=== PATIENT | female | born 1930 | race Caucasian/White ===

== ENCOUNTER 2016-12-23 10:30 | Emergency (ER) | payer OTHER ==
[~2016-12-23] VITALS: Ht 152.4 cm; Wt 65.8 kg
[~2016-12-23 10:30] MED LIST: ALBUTEROL0.63 MG/1 INH/SOL; AMLODIPINE BESY10 M1 PO; AMOXICILLIN500 M3 PO; ASPIRIN81 M4 PO; ATIVAN1 M1 PO; CYCLOBENZAPRINE5 M2 PO; DILAUDID2 M1 PO; FENOFIBRATE145 M1 PO; FLUOXETINE HCL20 M2 PO; HYDRALAZINE HCL50 M1 PO; HYDROCHLOROTHIA50 M1 PO; HYDROCODON-ACE1 EAC2 PO; HYDROMORPHONE HC2 M1 PO; LIDODERM1 EACH EXT; LOVASTATIN40 M1 PO; LYRICA25 M1 PO; METHYLPREDNISOLO4 M1 PO; MIRALAX119 GM PO; NIFEDIPINE ER60 M2 PO; OMEPRAZOLE20 M2 PO; ONE-A-DAY ESSE1 EACH PO; OXYCODONE HCL5 M1 PO; PROAIR HFA8.5 GM INH; SENNA PLUS TAB1 EACH PO; SPIRIVA18 MCG INH; SYMBICORT 80-10.2 GM INH; TRICOR48 M1 PO; VITAMIN D1000 UNIT PO
--- NOTE | 2016-12-23 11:05 | ED GENERAL ADULT ---
History of Present Illness General Chief Complaint: General Adult Stated Complaint: SIB WALK IN, LOW HEART RATE, BACK PAIN Source: patient, family, old records Exam Limitations: no limitations Vital Signs & Intake/Output Vital Signs & Intake/Output Vital Signs Date Time Temp Pulse Resp B/P Pulse O2 O2 Flow FiO2 Ox Delivery Rate 12/23 1359 97.4 56 18 148/76 96 Room Air 12/23 1343 148/76 04 1203 96.6 70 18 94 Room Air 12/23 1056 97.7 71 20 180/70 96 Room Air Allergies Coded Allergies: NO KNOWN ALLERGIES (12/24/12) Reconcile Medications Amlodipine Besylate (Norvasc) 10 MG TABLET 1 TAB PO DAILY htn (Reported) Aspirin (Aspirin*) 81 MG TAB.CHEW 1 TAB PO DAILY heart (Reported) Budesonide/Formoterol Fumarate (Symbicort 80-4.5 Mcg Inhaler) 80 MCG-4.5 MCG/ ACTUATION HFA.AER.AD 2 PUF INH BID BREATHING PROBLEMS (Reported) Cholecalciferol (Vitamin D3) (Vitamin D) 1,000 UNIT TABLET 1 TAB PO DAILY SUPPLEMENT (Reported) Fenofibrate Nanocrystallized (Fenofibrate) 145 MG TABLET 1 TAB PO DAILY cholesterol (Reported) Fluoxetine HCl 20 MG CAPSULE 1 CAP PO DAILY MENTAL HEALTH (Reported) Hydralazine HCl 50 MG TABLET 1 TAB PO TID HEART (Reported) Hydrochlorothiazide (Unknown Strength) CAPSULE (Unknown Dose) PO DAILY htn ( Reported) Hydromorphone HCl (Dilaudid) 2 MG TABLET 1 TAB PO Q6 PAIN (Reported) Hydromorphone HCl (Dilaudid) 2 MG TABLET 1 TAB PO Q6H PRN pain may cause drowsiness Hydromorphone HCl (Dilaudid) 2 MG TABLET 1 TAB PO Q6H PRN pain Lidocaine (Lidoderm) 5 % ADH..PATCH 1 PAT EXT DAILY PRN Back pain Lidocaine (Lidoderm) 5 % ADH..PATCH 1 PAT TOP DAILY PRN pain may wear up to 12 hours Lidocaine (Lidoderm) 5 % ADH..PATCH 1 PAT TOP DAILY PRN pain may wear up to 12 hours Lovastatin 40 MG TABLET 1 TAB PO DAILY CHOLESTEROL (Reported) with food Triage Note: TRIAGE: PT TO ER C/C PAIN ACROSS BACK AT BRA STRAP LINE, ONSET SATURDAY, CONSTANT SINCE ONSET. STATES "IT HURTS LIKE HELL". TRIED EXCEDRIN EXTRA STRENGTH WITH NO RELIEF NOTED. DENIES ANY OTHER S/S. WAS SEEN AT URGENT CARE AND WAS REFERRED TO ER FOR FURTHER EVAL. EKG DONE IN [place] PRIOR TO TRIAGE. Triage Nurses Notes Reviewed? yes HPI: Patient is an 86-year-old female presents complaining of severe upper back pain onset on Saturday. Patient reports that she was at rest with onset of pain. Pain is 10 out of 10 and aching pain worsens with movement, deep breath, palpation. Yesterday patient took a dose of Dilaudid and applied a lidocaine patch with improvement. Patient was seen at a walk-in clinic prior to arrival had an EKG which showed bradycardia, was administered 325 mg of aspirin and sent to the emergency department for further evaluation. Patient reports chronic dyspnea secondary to asthma, no recent change. Patient denies recent falls, trauma, numbness, weakness, chest pain, rash, fevers. Patient did not take her blood pressure medication this morning. (BRAD DUGAN) Past History Travel History Traveled to [place] past 21 day No Medical History Any Pertinent Medical History? 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 No (BRAD DUGAN) Review of Systems Review of Systems Constitutional: Denies: chills, fever. EENTM: Reports: no symptoms. Respiratory: Reports: short of breath (CHRONIC, UNCHANGED). Denies: cough, wheezing. Cardiovascular: Denies: chest pain, peripheral edema, syncope. GI: Denies: abdominal pain, nausea, vomiting. Genitourinary: Reports: no symptoms. Denies: dysuria, frequency, hematuria. Musculoskeletal: Reports: see HPI. Skin: Reports: no symptoms. Neurological/Psychological: Denies: numbness, paresthesia, unable to move lower ext, unable to move upper ext, weakness. Hematologic/Endocrine: Denies: bruising, bleeding. Immunologic/Allergic: Denies: splenectomy. (BRAD DUGAN) Physical Exam Physical Exam General Appearance: well developed/nourished, alert, awake Head: atraumatic, normal appearance Eyes: Bilateral: normal appearance, PERRL, EOMI. Ears, Nose, Throat: hearing grossly normal Neck: normal inspection, supple, full range of motion, no midline tenderness Respiratory: normal breath sounds, chest non-tender, no respiratory distress, lungs clear Cardiovascular: regular rate/rhythm (NO APPRECIABLE MURMUR) Peripheral Pulses: 2+ radial (R), 2+ radial (L) Gastrointestinal: soft, non-tender, NO PALPABLE PULSATILE MASSES Back: normal inspection, normal range of motion, VERTEBRAL TENDERNESS IN THE AREA OF t4/t5. NO PALPABLE LESIONS, NO INDURATION, NO ERYTHEMA Extremities: normal inspection, normal capillary refill, normal range of motion, no edema Neurologic/Psych: no motor/sensory deficits, awake, alert, oriented x 3, normal mood/affect Skin: intact, normal color, warm/dry Lymphatic: no anterior cervical randy Core Measures ACS in differential dx? Yes ASA ordered for poss ACS? Aspirin administered at urgent care clinic prior to arrival. CVA/TIA Diagnosis: No Severe Sepsis Present: No Septic Shock Present: No (BRAD DUGAN) Progress Differential Diagnoses I considered the following diagnoses in my evaluation of the patient: compression fracture, aortic dissection, ACS, arrhythmia, muscle strain Plan of Care: Orders Procedure Date/time Status Telemetry/Pacu Rn 12/23 1155 Active Add-on Test (ER Only) 12/23 1148 Active THYROID STIMULATING HORMONE 12/23 1131 Complete MAGNESIUM 12/23 1131 Complete TROPONIN LEVEL 12/23 1119 Complete COMPREHENSIVE METABOLIC PANEL 12/23 1119 Complete CBC WITHOUT DIFFERENTIAL 12/23 1119 Complete EKG 12/23 1035 Active Laboratory Tests 12/23/16 1131: Anion Gap 13, Estimated GFR 24 L, BUN/Creatinine Ratio 30.5 H, Glucose 94, Calcium 10.3 H, Magnesium 2.2, Total Bilirubin 0.8, AST 28, ALT 30, Alkaline Phosphatase 62, Troponin I 0.02, Total Protein 7.9, Albumin 4.4, Globulin 3.5, Albumin/Globulin Ratio 1.3, TSH 2.000, CBC w Diff NO MAN DIFF REQ, RBC 4.55, MCV 90.9, MCH 30.0, RDW 15.0 H, MPV 9.3, Gran % 66.0, Lymphocytes % 21.9, Monocytes % 8.8, Eosinophils % 2.9, Basophils % 0.4, Absolute Granulocytes 5.7, Absolute Lymphocytes 1.9, Absolute Monocytes 0.8 H, Absolute Eosinophils 0.2, Absolute Basophils 0, PUBS MCHC 32.9 L 12/23/2016 11:56:09 AM: Discussed with Dr. Rivera. 12/23/2016 12:14:31 PM: Patient resting comfortably. Medication list reviewed with patient and her daughter, as urgent care med list had Metoprolol on it. Patient does not take Metoprolol. 12/23/2016 1:00:35 PM: Results of labs discussed with patient's daughter. Evaluated by Dr. Rivera: Administer IV fluids. Patient does not want to be admitted to hospital. If no acute findings on CT scan then can have patient follow up closely with her primary care provider for recheck and further evaluation. 12/23/2016 2:25:51 PM: Results of CT scan and labs discussed with the patient and her daughter. Patient does not want to be admitted to the hospital. Discussed importance of close follow-up. (BRAD UDGAN) Diagnostic Imaging: Viewed by Me: CT Scan. Discussed w/RAD: CT Scan. Pre-Hospital EKG: sinus bradycardia with PACs, no acute ST/T-wave abnormalities Initial ED EKG: normal sinus rhythm 58 bpm, normal axis, LVH, no acute ST/T-wave changes compared to previous EKG Prior EKG: unchanged Rhythm Strip: normal sinus rhythm, PAC (BRAD DUGAN) Departure Departure Disposition: HOME OR SELF CARE Condition: Stable Clinical Impression Primary Impression: Compression fracture of thoracic spine, non-traumatic Qualifiers: Encounter type: initial encounter Qualified Code: M48.54XA - Collapsed vertebra, not elsewhere classified, thoracic region, initial encounter for fracture Secondary Impressions: Acute nontraumatic kidney injury Referrals: TYREL HARRIS APRN (PCP/Family) Additional Instructions: Stop taking your hydrochlorothiazide medication until you follow up with your nurse practitioner and are instructed otherwise. Follow up this week for recheck and further evaluation of your compression fracture and your elevated kidney function tests. Call Saturday morning for appointment. Return to the ER if numbness, weakness, pain uncontrollable or worsening of symptoms. Departure Forms: Customer Survey General Discharge Information Prescriptions: Current Visit Scripts Hydromorphone HCl (Dilaudid) 1 TAB PO Q6H PRN pain #12 TAB may cause drowsiness Lidocaine (Lidoderm) 1 PAT TOP DAILY PRN pain #30 PAT may wear up to 12 hours Hydromorphone HCl (Dilaudid) 1 TAB PO Q6H PRN pain #12 TAB Lidocaine (Lidoderm) 1 PAT TOP DAILY PRN pain #30 PAT may wear up to 12 hours (BRAD DUGAN) PA/PROCESSING TECHNICIAN Co-Sign Statement Statement: ED Attending supervision documentation- [X] I saw and evaluated the patient. I have also reviewed all the pertinent lab results and diagnostic results. I agree with the findings and the plan of care as documented in the PA's/PROCESSING TECHNICIAN's documentation. [X] I have reviewed the ED Record and agree with the PA's/PROCESSING TECHNICIAN's documentation. [] Additions or exceptions (if any) to the PAs/PROCESSING TECHNICIAN's note and plan are summarized below: [] (NATA WISE,SPENCER) Critical Care Note Critical Care Note Critical Care Time: non-applicable (BRAD DUGAN)
[2016-12-23 11:58] LABS: ABSOLUTE BASOPHIL COUNT 0 /CUMM (0.0-0.2); ABSOLUTE EOSINOPHIL COUNT 0.2 /CUMM (0.0-0.7); ABSOLUTE GRANULOCYTE CT 5.7 /CUMM (1.4-6.5); ABSOLUTE LYMPH COUNT 1.9 /CUMM (1.2-3.4); ABSOLUTE MONOCYTE COUNT 0.8 /CUMM (0.10-0.60); BASOPHIL % 0.4 % (0.0-2.0); EOSINOPHIL % 2.9 % (0-5); HEMATOCRIT 41.3 % (37-47); MEAN CORPUSCULAR HGB CONC 32.9 G/DL (33.0-37.0); MEAN CORPUSCULAR VOLUME 90.9 FL (81.0-99.0); MEAN PLATELET VOLUME 9.3 FL (7.4-10.4); PLATELET COUNT 311 /CUMM (130-400); RED BLOOD CELL CT 4.55 /CUMM (4.20-5.40); WHITE BLOOD CELL COUNT 8.6 /CUMM (4.8-10.8)
[2016-12-23] MEDS ORDERED: FENOFIBRATE145 M1 PO (12:08)
[2016-12-23] MEDS ORDERED: NORVASC10 M1 PO (12:08)
[2016-12-23] MEDS ORDERED: ASPIRIN81 M4 PO (12:08)
[2016-12-23] MEDS ORDERED: HYDROCHLOROTH12.5 M3 PO (12:09)
[2016-12-23 13:59] VITALS: BP 148/76
--- NOTE | 2016-12-23 14:11 | CT SCAN REPORT ---
EXAMINATION: CT CHEST WITHOUT CONTRAST CLINICAL INFORMATION: Severe upper thoracic pain. No known injury. COMPARISON: CT chest without contrast 08/24/2016. TECHNIQUE: Axial CT chest is performed without intravenous contrast. Additional 2-D coronal and sagittal reformatted images and axial 3-D maximum intensity projection MIP images are generated on the CT workstation. DLP: 229 mGy-cm FINDINGS: CREATIVE MANAGER: Eventration right diaphragm. Dextrocurvature lower thoracic spine. Findings similar to prior exam. LUNGS: The central airways are clear and there is no endobronchial lesion or bronchiectasis. Mild bronchiolar wall thickening is again seen in the lower lobes. There is bilateral lower lobe disc atelectasis, greater on the right. Some linear scarring is also likely. There is no lobar segmental airspace consolidation. No pneumothorax or pneumomediastinum. Tiny fissural-based nodule right middle lobe abutting minor fissure measures under 4 mm (series 5 image 232, sagittal image 74). Finding is stable from 2016 and possibly intraparenchymal node. MEDIASTINUM: Coronary artery atherosclerotic calcifications. No pericardial effusion. The thoracic aorta is normal in caliber. There is no aneurysmal enlargement. In the absence of intravenous contrast, not able to assess for dissection. No lymphadenopathy. PLEURA: No pleural mass, significant thickening, or effusion. Small residual small pleural reaction adjacent to right rib fracture. AXILLA: No lymphadenopathy. UPPER ABDOMEN: Long axis left kidney is horizontal. OSSEOUS STRUCTURES: Moderate T5 vertebral compression, new from prior study 09/03/2016. No paraspinal hematoma. Old ununited nondisplaced fracture right lateral seventh rib. IMPRESSION: 1. Moderate T5 vertebral compression fracture, new from prior CT 09/03/2016. 2. No thoracic aorta aneurysmal enlargement. Unable to assess for dissection (noncontrast exam). 3. No pneumothorax, infiltrate, or effusion. 4. Small fissural-based nodule right middle lobe just under 4 mm, likely intraparenchymal node similar to prior study. Reference: The Fleischner Society recommendations for management of pulmonary nodules are based on average nodule size and patient risk category as follows: Average nodule size < or = to 4 mm: Low Risk Patient: No follow up needed. High Risk Patient: Follow up CT at 12 months; if unchanged, no further follow up.
[2016-12-23] MEDS ORDERED: DILAUDID2 M1 PO ×2 (14:24→14:41)
[2016-12-23] MEDS ORDERED: LIDODERM1 EACH TOP ×2 (14:24→14:41)
== END 2016-12-23 14:51 ==
LOC: ERH 10:30
PROVIDERS: Physician Assistant
DX: M48.54XA Collapsed vertebra, not elsewhere classified, thoracic region, initial encounter for fracture (principal); N17.9 Acute kidney failure, unspecified; R00.1 Bradycardia, unspecified; I10 Essential (primary) hypertension
CPT/HCPCS: 93005; 93010; 96360

== ENCOUNTER 2017-01-14 16:04 | Inpatient (IN) | payer OTHER ==
[~2017-01-14] VITALS: Ht 152.4 cm; Wt 61.2 kg
[~2017-01-14 16:04] MED LIST changes: +HYDROCHLOROTH12.5 M3 PO; +LIDODERM1 EACH TOP; +NORVASC10 M1 PO
--- NOTE | 2017-01-14 16:15 | NUR ---
PT STATES THAT SHE WAS WALKING WITH WALKER WHEN SHE LOSS HER FOOTING AND FELL BACKWARDS HITTING HER HEAD ON THE FLOOR. DENIES LOC, PT NOTED WITH LAC TO L SIDE BACK OF HEAD, COMPLAINS OF BACK PAIN, PT WAS DIAGNOSED WITH COMPRESSION FRACTURES IN HER BACK ACOUPLE OF WEEKS AGO. PT COLLARED ON ARRIVAL AND ASKING THIS NURSE TO REMOVE IT. PT AWARE THAT COLLAR NEEDS TO REMAIN IN PLACE AT THIS TIME. PT NOTED TO BE ALEXANDREA ON MONITOR AT THIS TIME HR TO 44- 52
--- NOTE | 2017-01-14 16:23 | NUR ---
PA STUDENT AT BEDSIDE
[2017-01-14] MEDS ORDERED: TUDORZA PRESS400 MCG INH (16:25)
[2017-01-14] MEDS ORDERED: ALBUTEROL2.5 MG/3 M INH/SOL (16:26)
[2017-01-14] MEDS ORDERED: HYDROCHLOROTHIA50 M1 PO (16:27)
[2017-01-14] MEDS ORDERED: HYDROXYZINE HCL25 M2 PO (16:28)
[2017-01-14] MEDS ORDERED: DILAUDID2 M1 PO (16:28)
[2017-01-14] MEDS ORDERED: LIDODERM1 EACH TOP (16:29)
[2017-01-14] MEDS ORDERED: LORAZEPAM1 M1 PO (16:29)
[2017-01-14] MEDS ORDERED: MULTI-DAY VITA1 EACH PO (16:30)
[2017-01-14] MEDS ORDERED: OMEPRAZOLE20 M3 PO (16:30)
[2017-01-14] MEDS ORDERED: SPIRIVA18 MCG INH (16:30)
[2017-01-14] MEDS ORDERED: LYRICA50 M1 PO (16:30)
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
--- NOTE | 2017-01-14 16:56 | NUR ---
DEEP DRAWN AND SENT TO LAB
[2017-01-14 17:03] LABS: ABSOLUTE BASOPHIL COUNT 0.1 /CUMM (0.0-0.2); ABSOLUTE EOSINOPHIL COUNT 0.3 /CUMM (0.0-0.7); ABSOLUTE GRANULOCYTE CT 7.9 /CUMM (1.4-6.5); ABSOLUTE LYMPH COUNT 2.1 /CUMM (1.2-3.4); ABSOLUTE MONOCYTE COUNT 1.3 /CUMM (0.10-0.60); BASOPHIL % 0.5 % (0.0-2.0); EOSINOPHIL % 2.6 % (0-5); GRANULOCYTE % 68.1 % (42.2-75.2); HEMATOCRIT 43.7 % (37-47); MEAN CORPUSCULAR HGB 29.5 PG (27.0-31.0); MEAN CORPUSCULAR HGB CONC 32.5 G/DL (33.0-37.0); MEAN CORPUSCULAR VOLUME 90.9 FL (81.0-99.0); MEAN PLATELET VOLUME 9.3 FL (7.4-10.4); PLATELET COUNT 345 /CUMM (130-400); RBC DISTRIBUTION WIDTH 14.3 % (11.5-14.5); RED BLOOD CELL CT 4.81 /CUMM (4.20-5.40); WHITE BLOOD CELL COUNT 11.5 /CUMM (4.8-10.8)
--- NOTE | 2017-01-14 17:34 | NUR ---
PT MEDICATED WITH DILAUDID PER ORDER FOR 06/25 UPPER BACK PAIN
--- NOTE | 2017-01-14 17:35 | NUR ---
PA PLACED 5 LINDSEY TO LAC ON BACK OF HEAD
--- NOTE | 2017-01-14 17:45 | NUR ---
PT ABLE TO AMBULATE TO BATHROOM WITH WALKER, COMPLAINS OF UPPER BACK PAIN, STATES THAT THIS IS NOT NEW. PT NEEDED ASSISTANCE TO GET UP AND DOWN ON TOILET DUE TO THE PAIN
--- NOTE | 2017-01-14 18:52 | NUR ---
PT REMAINS SINUS ALEXANDREA ON MONITOR HR 38-40" AND ASYMPTOMATIC. PT SITTING UP AND TALKING WITH HER DAUGHTER. PAIN 2/10 IN UPPER BACK AFTER IV PAIN MEDS.
--- NOTE | 2017-01-14 19:14 | CT SCAN REPORT ---
EXAMINATION: CT HEAD AND CERVICAL SPINE. CLINICAL INFORMATION: Pain status post fall. Evaluate for trauma. COMPARISON: CT scan of the head dated 05/23/2015. TECHNIQUE: [employer]ling [employer] Manager images were obtained. A CT acquisition of the head and cervical spine was performed without intravenous administration of contrast. Data was reformatted into multiplanar images at the acquisition workstation. DLP: 935.71 mGy-cm. FINDINGS: Head: There are numerous ill-defined foci of hypoattenuation within the periventricular white matter that most likely represent a chronic manifestation of small vessel ischemia. Waldrop-white matter differentiation is otherwise preserved and there is no evidence of acute territorial infarct. There is no acute intracranial hemorrhage or abnormal extra axial collection. No intracranial mass effect or midline shift. Lateral and third ventricles are proportionate to the subarachnoid spaces. No hydrocephalus. Surgical yanet delineate a laceration in the left parietal region. The underlying calvarium is intact. There is no acute skull base fracture. Mastoid air cells and middle ear cavities are well aerated. Visualized paranasal sinuses are well-aerated. Cervical spine: There is anatomic alignment and position of the vertebral bodies and posterior elements of the cervical spine in the sagittal dimension. Vertebral body heights are preserved. There is no acute cervical spinal fracture. No abnormal prevertebral soft tissue swelling. There is loss of intervertebral disc height with associated disc osteophyte spurring at C4-C5 and C5-C6. Central protrusions cause at least mild canal stenosis at multiple levels within the cervical spine. Visualized lung apices are clear. Soft tissues of the neck are unremarkable. IMPRESSION: Head: There is a laceration of the left parietal scalp. The underlying calvarium is intact. No acute intracranial hemorrhage. Chronic small vessel ischemic changes are visualized within the periventricular white matter. No evidence of acute territorial infarct. Cervical spine: No acute cervical spinal fracture. There are central protrusions that cause at least mild canal stenosis at the levels of C2-C3, C3-C4, C4-C5, and C5-C6. If there is a clinical suspicion for compressive myelopathy then a dedicated cervical spine MRI should be obtained for better anatomic characterization of the cord.
--- NOTE | 2017-01-14 19:33 | CT SCAN REPORT ---
EXAMINATION: CT CHEST, ABDOMEN AND PELVIS WITHOUT CONTRAST CLINICAL INFORMATION: Trauma and pain. Status post fall. COMPARISON: CT abdomen and pelvis without contrast 08/06/2016. TECHNIQUE: Multidetector volumetric CT imaging of the chest, abdomen and pelvis was performed without intravenous contrast without immediate adverse reactions. Additional 2-D coronal and sagittal reformatted images and axial 3-D maximum intensity projection MIP images of the chest were generated on the acquisition workstation. DLP: 825 mGy-cm. FINDINGS: Limited evaluation of the solid abdominal viscera in the absence of intravenous contrast. CHEST: LUNGS/AIRWAYS: Evaluation of the lung parenchyma demonstrates right basilar subsegmental atelectasis. There are no findings indicative of pulmonary contusion or laceration in the setting of trauma. No suspicious pulmonary nodules or masses are identified. HEART/VESSELS: Limited evaluation for acute thoracic aortic injury given lack of intravenous contrast. There is no anterior mediastinal hematoma. Normal heart size, without significant pericardial effusion. Scattered coronary artery calcifications. Scattered atherosclerosis of the thoracic aorta. The ascending thoracic aorta is mildly ectatic and is visualized measuring 3.6 x 3.8 cm in AP and transverse dimensions respectively at the level of the right pulmonary artery. MEDIASTINUM/LYMPHATICS: No significant mediastinal, hilar or axillary adenopathy. PLEURA: No pleural effusions or pneumothoraces. CHEST WALL: Unremarkable. ABDOMEN AND PELVIS: LIVER, GALLBLADDER, AND BILIARY TREE: The liver is normal in size and attenuation. No contour deforming hepatic lesion or biliary ductal dilatation is present. The gallbladder is physiologically distended but otherwise unremarkable without visible gallstones, gallbladder wall thickening or pericholecystic inflammatory changes. The gallbladder is visualized anterior to the liver. PANCREAS: Unremarkable. SPLEEN: Unremarkable. ADRENAL GLANDS: Unremarkable. KIDNEYS AND URETERS: Evaluation of the bilateral kidneys and renal collecting systems is notable for left-sided renal cortical atrophy. Redemonstrated is significant dilatation of the left renal collecting system, which may be secondary to underlying left UPJ obstruction. There are focal calcifications visualized draining dependently within the dilated left renal pelvis. Redemonstrated is a renal cortical thinning of the left kidney. Evaluation of the contralateral right kidney is notable for a 1.2 cm hypoattenuating lesion arising from the mid to lower pole of the right kidney. This finding is incompletely characterized on this examination but may reflect a simple renal cortical cyst. No renal or ureteral stones are identified and there is no hydroureteronephrosis of either kidney or renal collecting system. BLADDER: Unremarkable. GASTROINTESTINAL TRACT: Evaluation of the gastrointestinal system is somewhat limited given lack of intravenous or oral contrast. Normal anatomic orientation of the stomach relative to the duodenum. Normal caliber of abdominal and pelvic bowel loops, without findings indicative of small bowel obstruction or ileus. Scattered colonic diverticulosis, notably involving the descending and rectosigmoid colon, without secondary signs of acute diverticulitis. No intraperitoneal or retroperitoneal hematoma. ABDOMINAL WALL: No significant hernia is appreciated. LYMPH NODES: No significant abdominal or pelvic adenopathy. VASCULAR: Scattered atherosclerosis of the abdominal aorta and its branching vessels, without aneurysmal dilatation. PELVIC VISCERA: Unremarkable. OSSEOUS STRUCTURES: No acute osseous abnormality. Mild degenerative changes involving the bilateral hip joints. Scoliotic curvature of the thoracolumbar spine. Moderate multilevel degenerative disc disease and facet arthrosis of the imaged lumbar spine. No destructive osseous lesions are identified. IMPRESSION: 1. Limited exam secondary to lack of intravenous contrast. No significant anterior mediastinal hematoma. Limited evaluation for acute thoracic aortic injury given lack of intravenous contrast. 2. Limited evaluation for solid organ and hollow visceral injury given lack of intravenous contrast. No intraperitoneal or retroperitoneal hematoma. 3. Persistent significant dilatation of the left renal pelvis which may be secondary to underlying chronic left UPJ obstruction. 4. Scattered colonic diverticulosis, without secondary signs of acute diverticulitis. 5. No acute osseous abnormality. Scoliosis of the thoracolumbar spine.
--- NOTE | 2017-01-14 21:17 | NUR ---
PT'S URINE OBTAINED AT 2110 AND SENT TO LAB
--- NOTE | 2017-01-14 21:39 | NUR ---
ASSUMED CARE OF PT, WILL CONTINUE TO MONITOR.
--- NOTE | 2017-01-14 22:37 | NUR ---
PT MEDICATED WITH 5000UNIT HEPARIN BOLUS SC IN RIGHT ABD, NS LITER #1 INFUSING AT 75ML/HR AND PT MEDICATED WITH 0.4MG DILAUDID PER EMAR INFUSING IN A 50ML NS BAG @100ML/HR.
--- NOTE | 2017-01-14 23:15 | History & Physical ---
See Addendum RIDDHI WISE,[facility] 01/14/17 2315: General Information and HPI MD Statement: I have seen and personally examined TIFFANY BRANCH and documented this H&P. The patient is a 86 year old F who presented with a patient stated chief complaint of [mechanical fall]. Source of Information: patient, old records Exam Limitations: no limitations History of Present Illness: Ms. Branch is 86 year old female with past medical history significant for diabetes mellitus, asthma, COPD not on home oxygen, hypertension, hyperlipidemia , bradycardia, chronic kidney disease, chronic lower back pain, chronic left hydronephrosis, osteoarthritis presented to ED with chief complaint of mechanical fall at home. Patient reported falling after stepping on slippery floor and hitting her head against the corner of the dining table, no history of use of consciousness, seizure activity, urine or stool incontinence, weakness, numbness. No history of previous falls. Patient lives with her granddaughter, she uses walker and needs information assistant in some daily activity such as taking showers. Patient reported right flank pain that started last Saturday, severe pain 10/10, couldn't describe the exact nature, aggravated by movement and deep inspiration. Patient denied any dysuria, abdominal pain, nausea vomiting, diarrhea or constipation. Prior to her fall she was going to a physician appointment "bone doctor" to evaluate this pain. Patient has history of chronic low back pain, of note visited the ED on January 02 and was prescribed Dilaudid and lidocaine patches. Patient denied that her right flank pain is similar to the chronic back pain she used to have. Patient denied any chest pain, shortness of breath, palpitation, decreased oral intake, fever or chills. No history of smoking, occasional alcohol consumption, no history of illict drug. Allergies/Medications Allergies: Coded Allergies: NO KNOWN ALLERGIES (12/24/12) Past History Travel History Traveled to [place] past 21 day No Medical History Neurological: NONE EENT: NONE Cardiovascular: hypertension, hyperlipidemia Respiratory: asthma Gastrointestinal: NONE Hepatic: NONE Renal: RENAL MASS Musculoskeletal: NONE Psychiatric: NONE Endocrine: diabetes Blood Disorders: NONE Cancer(s): NONE OUTPATIENT PSYCHIATRIST/Reproductive: NONE History of MRSA: No History of VRE: No History of CDIFF: No Surgical History Surgical History: non-contributory Past Family/Social History Psychosocial History Services at Home: Nursing ETOH Use: denies use Illicit Drug Use: denies illicit drug use Review of Systems Review of Systems Constitutional: Reports: see HPI. Exam & Diagnostic Data Last 24 Hrs of Vital Signs/I&O Vital Signs Date Time Temp Pulse Resp B/P B/P Pulse O2 O2 Flow FiO2 Mean Ox Delivery Rate 01/15 0226 97.8 44 20 95 01/14 2137 96.3 43 20 164/73 95 Room Air 01/14 1925 97.0 46 20 153/69 96 Room Air 01/14 1615 95 Room Air 01/14 1606 96.3 74 20 120/74 95 Room Air Intake & Output 01/15 0800 01/15 0000 01/14 1600 Intake Total 0 Output Total Balance 0 Intake, Oral 0 Patient 61.235 kg 61.235 kg Weight Physical Exam General Appearance Alert, Oriented X3, Cooperative, No Acute Distress Skin No Rashes, laceration of left temprol area, no active bleeding. no other trauma Skin Temp/Moisture Exam: Warm/Dry HEENT PERRLA, EOMI, Mucous Membr. moist/pink Neck Supple, No JVD Lymphatic no cervical lymphadenopathy Cardiovascular Regular Rate, Normal S1, Normal S2, No Murmurs Lungs Clear to Auscultation, Normal Air Movement Abdomen Normal Bowel Sounds, Soft, No Tenderness Neurological Normal Gait, Normal Speech, Strength at 5/5 X4 Ext, Normal Tone, Sensation Intact, Cranial Nerves 3-12 NL, Reflexes 2+ Extremities No Clubbing, No Cyanosis, No Edema, Normal Pulses Assessment/Plan Assessment: Ms. Branch is 86 year old female with past medical history significant for diabetes mellitus, asthma, COPD not on home oxygen, hypertension, hyperlipidemia , bradycardia, chronic kidney disease, chronic lower back pain, chronic left hydronephrosis, osteoarthritis presented to ED with chief complaint of mechanical fall at home. On admission Vitals 96.3, pulse 74, blood pressure 120/74, respiratory rate 20 with saturation 95% air Labs H&H 14.2/43.7, the WBC 11.5, platelet 345, BUN/creatinine 55/1.7, G if are 28, troponin 0.03, liver function test within normal Image CT head and cervical spine IMPRESSION: Head: There is a laceration of the left parietal scalp. The underlying calvarium is intact. No acute intracranial hemorrhage. Chronic small vessel ischemic changes are visualized within the periventricular white matter. No evidence of acute territorial infarct. Cervical spine: No acute cervical spinal fracture. There are central protrusions that cause at least mild canal stenosis at the levels of C2-C3, C3-C4, C4-C5, and C5-C6. If there is a clinical suspicion for compressive myelopathy then a dedicated cervical spine MRI should be obtained for better anatomic characterization of the cord. CT chest, abdomen and pelvis without IV contrast IMPRESSION: 1. Limited exam secondary to lack of intravenous contrast. No significant anterior mediastinal hematoma. Limited evaluation for acute thoracic aortic injury given lack of intravenous contrast. 2. Limited evaluation for solid organ and hollow visceral injury given lack of intravenous contrast. No intraperitoneal or retroperitoneal hematoma. 3. Persistent significant dilatation of the left renal pelvis which may be secondary to underlying chronic left UPJ obstruction. 4. Scattered colonic diverticulosis, without secondary signs of acute diverticulitis. 5. No acute osseous abnormality. Scoliosis of the thoracolumbar spine. Problem list #Mechanical fall without fracture #History of bradycardia #Hypertension #Diabetes mellitus #Asthma and COPD on inhalers #Chronic low back pain #Acute left flank pain muscular versus renal #Acute kidney injury on top of chronic kidney disease -Admit to telemetry floor and managed following problems: #Mechanical fall without fracture -PT evaluation -account installation specialist for any arrhythmia -Orthostatic measurement #History of bradycardia #Hypertension -Continue aspirin -Continue fenofibrate -Comfort medication with patient's daughter in a.m. -Monitor for bradycardia -Trend troponin EKG -Cartilage and consultation in a.m. #Diabetes mellitus -Accu-Chek 3 times a day -NovoLog sliding scale 3 times a day #Asthma and COPD on inhalers -TRC -Continue home inhalers #Chronic low back pain -Optimal pain control -MRI lumbar spine July 2016 revelead moderate levoconvex lumbar scoliosis with multilevel fairly advanced spondylosis. #Acute left flank pain muscular versus renal -Consider UA -Consider CK to rule out rhabdomyolysis #Acute kidney injury on top of chronic kidney disease -BUN/creatinine 55/1.7 -Baseline creatinine 1.4 -Avoid nephrogenic medication including lasix -Hydrate 1 bag normal saline Diet heart healthy DVT prophylaxis heparin sc Code full As Ranked By This Provider Problem List: 1. Acute kidney injury (nontraumatic) 2. Intractable back pain 3. Hypertension 4. Fall Core Measures/Miscellaneous Acute Coronary Syndrome ACS Diagnosis: No Cerebrovascular Accident CVA/TIA Diagnosis: No Congestive Heart Failure CHF Diagnosis: No Venous Thromboembolism VTE Risk Factors: Age > 40 No [facility] VTE prophylaxis d/t: No contraindications No VTE Pharm Prophylaxis d/t: No contraindications VTE Diagnosis: No VTE Type: NONE VTE Confirmed by (Test): NONE Severe Sepsis Severe Sepsis Present: No Septic Shock Septic Shock Present: No Miscellaneous Documentation Attending Case Discussed With: NAKIA MCCAULEY MD Primary Care Physician: TYREL HARRIS APRN Patient sees these Specialists cardiolgy Level of Patient Care: Telemetry GOMEZAUTUMNYVONNE SALAS 01/15/17 0234: General Information and HPI Allergies/Medications Home Med list Aclidinium [place] (Tudorza Pressair) 400 MCG/ACTUATION AER.POW.BA 1 PUFF INH BID RESPIRATORY (Reported) Albuterol Sulfate 2.5 MG/3 ML (0.083 %) VIAL.NEB 1 Vial INH/TWIN Q6H PRN WHEEZING (Reported) Aspirin (Aspirin*) 81 MG TAB.CHEW 1 TAB PO DAILY heart (Reported) Budesonide/Formoterol Fumarate (Symbicort 80-4.5 Mcg Inhaler) 80 MCG-4.5 MCG/ ACTUATION HFA.AER.AD 2 PUF INH BID BREATHING PROBLEMS (Reported) Cholecalciferol (Vitamin D3) (Vitamin D) 1,000 UNIT TABLET 1 TAB PO DAILY SUPPLEMENT (Reported) Fenofibrate Nanocrystallized (Fenofibrate) 145 MG TABLET 1 TAB PO DAILY cholesterol (Reported) Fluoxetine HCl 20 MG CAPSULE 1 CAP PO DAILY MENTAL HEALTH (Reported) Hydralazine HCl 50 MG TABLET 1 TAB PO TID HEART (Reported) Hydrochlorothiazide 50 MG TABLET 1 TAB PO DAILY BP (Reported) Hydromorphone HCl (Dilaudid) 2 MG TABLET 1 TAB PO Q4H PRN PAIN (Reported) Hydroxyzine HCl 25 MG TABLET 1 TAB PO TID PRN ITCHING (Reported) Lidocaine (Lidoderm) 5 % ADH..PATCH 1 PAT TOP DAILY PAIN (Reported) may wear up to 12 hours Lorazepam 1 MG TABLET 1 TAB PO BID PRN ANXIETY (Reported) Lovastatin 40 MG TABLET 1 TAB PO DAILY CHOLESTEROL (Reported) with food Multivitamin (Multi-Day Vitamins) 1 EACH TABLET 1 TAB PO DAILY SUPPLEMENT ( Reported) Omeprazole 20 MG TABLET.DR 1 TAB PO DAILY GI (Reported) Pregabalin (Lyrica) 50 MG CAPSULE 1 CAP PO BID PAIN (Reported) Tiotropium [place] (Spiriva) 18 MCG CAP.W.DEV 1 CAP INH DAILY RESPIRATORY ( Reported) Resident Review Statement Resident Statement: examined this patient, discussed with fall intern, agreed with fall intern Other Findings: Mrs. Branch is an 86 yo women with PMHx. of HTN, CKD, DM, COPD, asthma, chronic back pain presented to ED with a c/o of mechanical fall and sever Rt. flank and Rt. back pain presented to ed after mechanical fall Detailed Hx. as above Vitals , examination, imaging and labs Assessment: #Mechanical fall with laceration of the left occipital region #Bradycardia #Renal insufficeincy #Hx. of HTN, COPD #Hx. of chronic pain Plan: - She will be under observation in telemetry - Orthostatic vitals - Cardiology consult for bradycardia - Gentle hydration - Pain management - Repeat BMP CBC in a.m. - Cycle troponin and EKG - Patient's home medications need to be reconciled with her daughter.(She didn't rememeber her medications) - OT PT evaluation - DVT prophylaxis with heparin Full code NAKIA MCCAULEY 01/15/17 0323: Attending MD Review Statement Attending Statement Attending MD Statement: examined this patient, discuss w/resident/PA/COMMERCIAL LOAN ASSISTANT, agreed w/resident/PA/COMMERCIAL LOAN ASSISTANT, reviewed EMR data (avail), reviewed images, amended to note Attending Assessment/Plan: CC: Fall PMH: HTN, CK D, DM, COPD, chronic back pain Patient came to ER after fall. She states that she was walking with her walker and fell backwards because of her slippery socks hitting her head to dining table. Denies loss of consciousness after the fall. She denies any chest pain palpitations presyncopal symptoms before the fall. Patient was found to have bradycardia in the 40s so we were called for admission. Patient also complains of right lower back pain, on and off, worse since last 3 days, not associated with any urinary frequency or burning. Patient does denies any urinary or stool incontinence. She was in ER December 23 and was found to have T5 vertebral compression fracture and was expected to undergo some procedure for pain relief. Meanwhile patient was in hospital in July 2016 at that time she was complaining of similar pain and was found to have lumbar radiculopathy. After the fall she had trauma to occipital area on left side and underwent yanet in ER. Vitals: Afebrile, heart rate ranged from 40s to 70s, RR 20, blood pressure 120/ 74, saturating well on room air. On exam: A O 3, cooperative, in distress due to right lower back pain, neck supple, JVD normal, no lymphadenopathy, mucosa moist, no focal neurological deficit including intact strength lower extremity, no dependent edema, no obvious skin rashes or inflammation CVS: S1-S2, RRR. RS: Clear to auscultate bilaterally. Abdomen: Soft, NT, ND, bowel sounds present. Peripheral pulses perfusion normal Labs: WBC 11.5, normal differential, creatinine 1.7, BUN 55, glucose 131, troponin 0.03, alkaline phosphatase 69. CT head, CT chest, CT cervical spine, CT abdomen and pelvis was obtained 1. There is a laceration of the left parietal scalp. The underlying calvarium is intact. No acute intracranial hemorrhage. Chronic small vessel ischemic changes are visualized within the periventricular white matter. No evidence of acute territorial infarct. 2. No acute cervical spinal fracture. There are central protrusions that cause at least mild canal stenosis at the levels of C2-C3, C3-C4, C4-C5, and C5-C6. If there is a clinical suspicion for compressive myelopathy then a dedicated cervical spine MRI should be obtained for better anatomic characterization of the cord. 3. Limited exam secondary to lack of intravenous contrast. No significant anterior mediastinal hematoma. Limited evaluation for acute thoracic aortic injury given lack of intravenous contrast. 4. Limited evaluation for solid organ and hollow visceral injury given lack of intravenous contrast. No intraperitoneal or retroperitoneal hematoma. 5. Persistent significant dilatation of the left renal pelvis which may be secondary to underlying chronic left UPJ obstruction. 6. Scattered colonic diverticulosis, without secondary signs of acute diverticulitis. 7. No acute osseous abnormality. Scoliosis of the thoracolumbar spine. A and P Patient had mechanical fall, no presyncopal symptoms no loss of consciousness. She had laceration which was stapled in ER. But incidentally found to have bradycardia. Heart rate in 40s, we were asked to place her in observation for bradycardia workup. Of note patient was seen in July 2016 and had multiple episodes of bradycardia at that time and was considered junctional rhythm, changes in her medications were made including stopping diuretic. Her amlodipine was stopped and nifedipine was started. According to claims history patient is currently getting amlodipine as well as nifedipine. Daughter was not at bedside to reconfirm the home medications, and patient does not provide any further details. At this point bradycardia likely secondary to polypharmacy. Medications need to be reconfirmed in the morning. Meanwhile patient also complains of acute right lower back pain, no obvious neurological deficits. It should be noted that MRI obtain done 08/13/2016 shows Asymmetric right-sided disc osteophyte complex resulting in asymmetric narrowing of the right subarticular recess impinging upon the traversing right L3 nerve root and moderate right foraminal stenosis impinging upon the exiting right L2 nerve root. Patient was supposed to get outpatient follow-up procedure for pain relief but patient does not provide any details regarding this. 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 - Trend troponin and EKG - Patient's home medications need to be reconciled with her daughter. - DVT prophylaxis with heparin
--- NOTE | 2017-01-15 00:05 | NUR ---
PT MOVED TO A HOSPITAL BED FOR COMFORT. WILL CONTINUE TO MONITOR.
--- NOTE | 2017-01-15 01:49 | NUR ---
THIS RN ASSISTED PT TO AMBULATE TO COMMODE. PT PLACED AND REPOSITIONED BACK IN BED. PT AWAITING NEXT TIME FOR PAIN MEDICATIONS.
--- NOTE | 2017-01-15 02:25 | NUR ---
PT MEDICATED WITH 0.5MG DILAUDID IV PER EMAR Q4HRS PRN INFUSING IN A 50ML NS BAG INFUSING AT 100ML/HR.
--- NOTE | 2017-01-15 05:40 | NUR ---
PT'S RM ASSIGNMENT 178 BED 1
[2017-01-15 05:53] LABS: ABSOLUTE BASOPHIL COUNT 0.1 /CUMM (0.0-0.2); ABSOLUTE EOSINOPHIL COUNT 0.2 /CUMM (0.0-0.7); ABSOLUTE GRANULOCYTE CT 6.7 /CUMM (1.4-6.5); ABSOLUTE LYMPH COUNT 2.7 /CUMM (1.2-3.4); BASOPHIL % 0.8 % (0.0-2.0); EOSINOPHIL % 2.2 % (0-5); GRANULOCYTE % 62.7 % (42.2-75.2); HEMATOCRIT 44.1 % (37-47); MEAN CORPUSCULAR HGB 29.3 PG (27.0-31.0); MEAN CORPUSCULAR HGB CONC 32.4 G/DL (33.0-37.0); MEAN CORPUSCULAR VOLUME 90.4 FL (81.0-99.0); MEAN PLATELET VOLUME 9.2 FL (7.4-10.4); PLATELET COUNT 319 /CUMM (130-400); RBC DISTRIBUTION WIDTH 14.3 % (11.5-14.5); RED BLOOD CELL CT 4.88 /CUMM (4.20-5.40); WHITE BLOOD CELL COUNT 10.7 /CUMM (4.8-10.8)
--- NOTE | 2017-01-15 06:05 | NUR ---
REPORT GIVEN TO HASMUKH PEDERSON.
[2017-01-15 07:34] VITALS: BP 168/88
[2017-01-15 10:40] VITALS: BP 190/80
[2017-01-15 10:50] VITALS: BP 170/80
--- NOTE | 2017-01-15 13:50 | PN- Housestaff ---
See Addendum FELIPA WISE,TOBIAS 01/15/17 1350: Subjective Follow-up For: Mechanical fall Head injury Complaints: low back pain Tele-Events Since Last Visit: Sinus bradycardia, heart rate around 50s Subjective: I followed up and examined the patient today. She is resting in her bed, mild distress due to pain, complains of low back pain more towards the right side, minimum 0, max 10/10, telemetry event noted as above, vital signs otherwise stable, no events overnight. Review of Systems Constitutional: Reports: see HPI. Objective Last 24 Hrs of Vital Signs/I&O Vital Signs Date Time Temp Pulse Resp B/P B/P Pulse O2 O2 Flow FiO2 Mean Ox Delivery Rate 01/15 1450 170/80 01/15 1150 Room Air 01/15 1050 42 170/80 01/15 1040 98.1 66 16 190/80 93 Room Air 01/15 0734 98.2 60 18 168/88 94 Room Air 01/15 0555 97.8 73 20 168/82 94 Room Air 01/15 0226 97.8 44 20 95 05 2137 96.3 43 20 164/73 95 Room Air 01/14 1925 97.0 46 20 153/69 96 Room Air 01/14 1615 95 Room Air 01/14 1606 96.3 74 20 120/74 95 Room Air Intake & Output 01/15 1600 01/15 0800 01/15 0000 Intake Total 0 Output Total Balance 0 Intake, Oral 0 Patient 61.235 kg 61.235 kg Weight Physical Exam General Appearance: Alert, Oriented X3, Cooperative, Mild Distress (due to pain) Other Physical Findings: Skin No Rashes, laceration of left temprol area, no active bleeding. no other trauma Skin Temp/Moisture Exam: Warm/Dry HEENT Trauma: left parietal region has scalp laceration that has five stitches placed, PERRLA, EOMI, Mucous Membr. moist/pink Neck Supple, No JVD Lymphatic no cervical lymphadenopathy Cardiovascular Regular Rate, Normal S1, Normal S2, systolic Murmur + Lungs Clear to Auscultation, Normal Air Movement Abdomen Normal Bowel Sounds, Soft, No Tenderness Neurological Normal Gait, grossly intact Back Tenderness over lower back L>R, spine tenderness at multiple levels of spine Extremities No Clubbing, No Cyanosis, No Edema, Normal Pulses Current Medications: Current Medications Sig/Tricia Start time Last Medication Dose Route Stop Time Status Admin Acetaminophen 650 MG Q6P PRN 01/14 2215 AC PO Aspirin 81 MG DAILY 01/15 1103 AC 01/15 PO 1450 Atorvastatin Calcium 10 MG 1700 01/15 1700 AC PO Budesonide/ 2 PUF BID 01/15 1103 AC 01/15 Formoterol Fumarate INH 1450 Cholecalciferol 1,000 IU DAILY 01/15 1103 AC 01/15 PO 1450 Fenofibrate 145 MG DAILY 01/15 1104 AC 01/15 PO 1450 Fluoxetine HCl 20 MG DAILY 01/15 1104 AC 01/15 PO 1450 Heparin Sodium 0 .STK-MED ONE 01/14 2225 DC (Porcine) .ROUTE Heparin Sodium 5,000 UNIT Q8 01/14 2200 AC 01/15 (Porcine) SC 1451 Hydralazine HCl 50 MG TID 01/15 1105 AC 01/15 PO 1450 Hydrochlorothiazide 50 MG DAILY 01/15 1105 AC 01/15 PO 1450 Hydromorphone HCl 0 .STK-MED ONE 01/15 0226 DC .ROUTE Hydromorphone HCl 0 .STK-MED ONE 01/14 2227 DC .ROUTE Hydromorphone HCl 0.5 MG Q4P PRN 01/14 2215 AC 01/15 IV 1323 Hydromorphone HCl 0.4 MG ONCE ONE 01/14 2200 DC 01/14 IV 01/14 2201 2233 Hydromorphone HCl 0 .STK-MED ONE 01/14 1736 DC .ROUTE Hydromorphone HCl 0.4 MG ONCE ONE 01/14 1730 DC 01/14 IV 01/14 1731 1734 Lidocaine/Epinephrine 0 .STK-MED ONE 01/14 1652 DC .ROUTE Lidocaine/Epinephrine 20 ML ONCE ONE 01/14 1645 DC 01/14 ID 01/14 1646 1713 Lorazepam 1 MG BID PRN 01/15 1115 AC PO Multivitamins 1 TAB DAILY 01/15 1110 AC 01/15 Therapeutic PO 1450 Omeprazole 20 MG DAILY AC 01/15 1110 AC 01/15 PO 1450 Patient Medication 1 ED .STK-MED ONE 01/15 1340 DC Teaching ED 01/15 1341 Pregabalin 50 MG BID 01/15 1110 AC 01/15 PO 1459 Sodium Chloride 1,000 ML Q13H 01/15 0045 DC IV 01/15 1344 Sodium Chloride 1,000 ML .[id number] 01/14 2200 AC 01/15 IV 1024 Tiotropium [place] 1 PUF DAILY 01/15 1110 AC 01/15 INH 1449 Last 24 Hrs of Lab/Tylor Results Last 24 Hrs of Labs/Mics: Laboratory Tests 01/15/17 0548: Anion Gap 16, Estimated GFR 31 L, BUN/Creatinine Ratio 35.6 H, Troponin I 0.05 , CBC w Diff NO MAN DIFF REQ, RBC 4.88, MCV 90.4, MCH 29.3, RDW 14.3, MPV 9.2, Gran % 62.7, Lymphocytes % 25.3, Monocytes % 9.0, Eosinophils % 2.2, Basophils % 0.8, Absolute Granulocytes 6.7 H, Absolute Lymphocytes 2.7, Absolute Monocytes 1.0 H, Absolute Eosinophils 0.2, Absolute Basophils 0.1, PUBS MCHC 32.4 L 01/15/17 0109: Troponin I 0.03 01/14/17 2111: Urine Color YEL, Urine Clarity CLEAR, Urine pH 5.5, Ur Specific [place] 1.025, Urine Protein 100 H, Urine Ketones TRACE H, Urine Nitrite NEG, Urine Bilirubin NEG@ICTO, Urine Urobilinogen 1.0, Ur Leukocyte Esterase NEG, Ur Microscopic SEDIMENT EXAMINED, Urine RBC RARE, Urine WBC 1-3 H, Ur Epithelial Cells MOD H, Urine Bacteria MOD H, Hyaline Casts RARE H, Urine Hemoglobin NEG, Urine Glucose NEG 01/14/17 1650: Anion Gap 16, Estimated GFR 28 L, BUN/Creatinine Ratio 32.4 H, Glucose 131 H, Calcium 9.7, Total Bilirubin 1.0, AST 34, ALT 32, Alkaline Phosphatase 69, Troponin I 0.03, Total Protein 7.0, Albumin 3.8, Globulin 3.2, Albumin/Globulin Ratio 1.2, CBC w Diff NO MAN DIFF REQ, RBC 4.81, MCV 90.9, MCH 29.5, RDW 14.3, MPV 9.3, Gran % 68.1, Lymphocytes % 17.9 L, Monocytes % 10.9 H, Eosinophils % 2.6, Basophils % 0.5, Absolute Granulocytes 7.9 H, Absolute Lymphocytes 2.1, Absolute Monocytes 1.3 H, Absolute Eosinophils 0.3, Absolute Basophils 0.1, PUBS MCHC 32.5 L Assessment/Plan Assessment: Ms. Branch is 86 year old female with past medical history significant for diabetes mellitus, asthma, COPD not on home oxygen, hypertension, hyperlipidemia , bradycardia, chronic kidney disease, chronic lower back pain, chronic left hydronephrosis, osteoarthritis, who presented to ED with chief complaint of mechanical fall at home. Problem list #Mechanical fall with scalp lacertion, no fracture #History of bradycardia (junctional) #Hypertension #Diabetes mellitus #Asthma and COPD on inhalers #Acute on Chronic low back pain #Acute kidney injury on chronic kidney disease -Admit to telemetry floor and managed following problems: #Mechanical fall with scalp laceration, no fracture -Orthostatic BP was negtive -continue telemetry due to fall risk and bradycardia until cleared for any teletry events/by cardiology -PT evaluation #Acute on Chronic back pain -MRI lumbar spine July 2016 revelead moderate levoconvex lumbar scoliosis with multilevel fairly advanced spondylosis. Discussion with interventional radiology team today mentioned that she had acute traumatic fracture of T4 vertebrae recently. -After discussion with interventional radiologist, she is planned to get an MRI of thoracic and lumbar spine tomorrow morning after which she will probably get vertebral augmentation procedure as deemed necessary on -Will be kept nothing by mouth after midnight on Saturday -target Optimal pain control while watching her heart rate -No NSAIDs, blood thinners, antiplatelets before the procedure #Acute kidney injury on chronic kidney disease -BUN/creatinine 57/1.6 -Baseline creatinine 1.4 -Avoid nephrogenic medication including lasix for now -Continue IVF NS at 75ml/hr for now -Nephrology consultation appreciated -Per nephrology, dose of Lasix to be decided tomorrow after repeat BEP, and probably it will be on alternate days. Will recheck BEP tomorrow. #History of junctional bradycardia #Hypertension -Continue aspirin (hold for tomorrow and for IR procedure) -Continue fenofibrate - home medication confirmed and resumed today -Monitor for bradycardia in tele for now -cardiology consultation awaited #Diabetes mellitus -Accu-Chek 3 times a day -NovoLog sliding scale 3 times a day #Asthma and COPD on inhalers -TRC -Continue home inhalers Diet heart healthy DVT prophylaxis heparin sc Code full Problem List: 1. Fall 2. Compression fracture of thoracic spine, non-traumatic 3. Acute kidney injury (nontraumatic) 4. Junctional bradycardia 5. Diabetes mellitus 6. CKD (chronic kidney disease) Pain Ratin Pain Location: back Pain Goal: Pain 4 or less Pain Plan: prn dilaudid among others, patient has PO dilaudid at home Tomorrow's Labs & Rationales: INR, CBC, BEP for plan of vertebral augmentation on ANIKA CARRANZA MD 01/15/17 2149: Attending MD Review Statement Attending Statement Attending MD Statement: examined this patient, discuss w/resident/PA/PAINTING AND COATING WORKER, agreed w/resident/PA/PAINTING AND COATING WORKER, discussed with family, reviewed EMR data (avail), discussed with nursing, discussed with case mgmt, reviewed images, amended to note Attending Assessment/Plan: The patient was seen and discussed with house staff, family, interventional radiology and case management. She is having intractable pain requiring IV dilaudid for relief. Plan was for OP vertebroplasty originally, however patient now needs admission due for pain management. Reviewed images with Dr. Portillo and examined patient. She points to right flank pain radiation from lumbar region, however does have pain in mid thoracic region as well. There has been further loss of height of T5 and ? L4 (on Xray today). We will do MRI of Thoracolumbar spine on 01/16/17 with plan to do vertebral augmentation on 01/17/[address] Portillo (pending MRI report). Patient requests sedation/pre-medication for MRI. As above, will convert to full admission as pain is not controlled.
--- NOTE | 2017-01-15 14:00 | RADIOLOGY REPORT ---
EXAMINATION: XR LUMBOSACRAL SPINE CLINICAL INFORMATION: Pain on right more than left lower back. Previous MRI showed nerve root compression on the left. Degenerative disease of lumbar spine. COMPARISON: CT scan of the abdomen and pelvis dated 01/14/2017. MRI scan of the lumbar spine dated 08/13/2016. TECHNIQUE: AP and lateral views of the lumbosacral spine and of the lumbosacral junction were obtained. FINDINGS: Convex left thoracolumbar scoliosis with diffuse moderate vertebral spondylosis is seen, similar to prior exam. There is moderate degenerative disc disease and facet arthropathy throughout the lumbar spine. Diffuse osteopenia is seen with superior endplate compression deformity of the L4 vertebral body with approximately 50% reduction in vertebral body height, unchanged. Remainder of the vertebral body height is relatively well-maintained. Sacroiliac joints are intact and unremarkable. Moderate degenerative changes seen in the left hip joint, asymmetric to the mild degenerative changes on the contralateral right side. Atherosclerotic calcifications of the abdominal aorta and bifurcation is seen. Several phleboliths are noted in the pelvis. IMPRESSION: 1. Osteopenia with superior endplate compression deformity of L4, unchanged from recent CT scan and slightly progressed compared to MRI scan from 08/13/2016. 2. Moderate degenerative disc disease, facet arthropathy, and vertebral spondylosis seen.
[2017-01-15 15:30] VITALS: BP 112/60
--- NOTE | 2017-01-15 16:57 | Cons- Cardiology ---
General Information and HPI Consulting Request Date of Consult: 01/15/17 Requested By: ANIKA CARRANZA MD History of Present Illness: Ms. Branch is an 86 year female with history of bradycardia and juctional heart rhythm. She also carries a history of increased cardiac troponin. While walking with a walker toward her kitchen table this patient fell backword hitting her head. She does not recall tripping on anything but denies loss of consciousness. She also denies any obvious palpitations. This patient does have chronic mid back pain and has multiple vertebral fractures. Otherwise she denies any chest discomfort or shortness of breath. In the ER the patient was noted to be bradycardic with heart rate as slow as 38bpm. In August of 2016 this patient had renal insufficiency related to a marked renal obstruction at the left UPJ. A slight rise in cardiac troponin was noted at that time. It should be recalled that when last in the hospital this patient was noted to be bradycardic with an ECG showing a junctional rhythm at 45bpm. The patient reported both lightheadedness and shortness of breath at that time. Allergies/Medications Allergies: Coded Allergies: NO KNOWN ALLERGIES (12/24/12) Home Med List: Aclidinium [place] (Tudorza Pressair) 400 MCG/ACTUATION AER.POW.BA 1 PUFF INH BID RESPIRATORY (Reported) Albuterol Sulfate 2.5 MG/3 ML (0.083 %) VIAL.NEB 1 Vial INH/TWIN Q6H PRN WHEEZING (Reported) Aspirin (Aspirin*) 81 MG TAB.CHEW 1 TAB PO DAILY heart (Reported) Budesonide/Formoterol Fumarate (Symbicort 80-4.5 Mcg Inhaler) 80 MCG-4.5 MCG/ ACTUATION HFA.AER.AD 2 PUF INH BID BREATHING PROBLEMS (Reported) Cholecalciferol (Vitamin D3) (Vitamin D) 1,000 UNIT TABLET 1 TAB PO DAILY SUPPLEMENT (Reported) Fenofibrate Nanocrystallized (Fenofibrate) 145 MG TABLET 1 TAB PO DAILY cholesterol (Reported) Fluoxetine HCl 20 MG CAPSULE 1 CAP PO DAILY MENTAL HEALTH (Reported) Hydralazine HCl 50 MG TABLET 1 TAB PO TID HEART (Reported) Hydrochlorothiazide 50 MG TABLET 1 TAB PO DAILY BP (Reported) Hydromorphone HCl (Dilaudid) 2 MG TABLET 1 TAB PO Q4H PRN PAIN (Reported) Hydroxyzine HCl 25 MG TABLET 1 TAB PO TID PRN ITCHING (Reported) Lidocaine (Lidoderm) 5 % ADH..PATCH 1 PAT TOP DAILY PAIN (Reported) may wear up to 12 hours Lorazepam 1 MG TABLET 1 TAB PO BID PRN ANXIETY (Reported) Lovastatin 40 MG TABLET 1 TAB PO DAILY CHOLESTEROL (Reported) with food Multivitamin (Multi-Day Vitamins) 1 EACH TABLET 1 TAB PO DAILY SUPPLEMENT ( Reported) Omeprazole 20 MG TABLET.DR 1 TAB PO DAILY GI (Reported) Pregabalin (Lyrica) 50 MG CAPSULE 1 CAP PO BID PAIN (Reported) Tiotropium [place] (Spiriva) 18 MCG CAP.W.DEV 1 CAP INH DAILY RESPIRATORY ( Reported) Past History Travel History Traveled to [place] past 21 day No Medical History Neurological: NONE EENT: NONE Cardiovascular: hypertension, hyperlipidemia Respiratory: asthma Gastrointestinal: NONE Hepatic: NONE Renal: RENAL MASS Musculoskeletal: NONE Psychiatric: NONE Endocrine: diabetes Blood Disorders: NONE Cancer(s): NONE TRIAL MANAGEMENT ASSOCIATE/Reproductive: NONE Surgical History Surgical History: non-contributory Psychosocial History Services at Home: Nursing Smoking Status: Unknown If Ever Smoked ETOH Use: denies use Illicit Drug Use: denies illicit drug use Exam & Diagnostic Data Vital Signs and I&O Vital Signs Date Time Temp Pulse Resp B/P B/P Pulse O2 O2 Flow FiO2 Mean Ox Delivery Rate 01/15 1606 112/70 01/15 1450 170/80 01/15 1150 Room Air 01/15 1050 42 170/80 01/15 1040 98.1 66 16 190/80 93 Room Air 01/15 0734 98.2 60 18 168/88 94 Room Air 01/15 0555 97.8 73 20 168/82 94 Room Air 01/15 0226 97.8 44 20 95 01/14 2137 96.3 43 20 164/73 95 Room Air 01/14 1925 97.0 46 20 153/69 96 Room Air Intake & Output 01/15 1600 01/15 0800 01/15 0000 01/14 1600 01/14 0800 01/14 0000 Intake Total 240 0 Output Total 600 Balance -360 0 Intake, Oral 240 0 Output, Urine 600 Patient 135 lb 135 lb Weight Physical Exam: General: WD/ overweight female in NAD; alert and oriented x 3 HEENT: NC/AT, PERRL, EOMI, clear oropharynx Neck: no JVD, no carotid bruit Heart: RRR with 2/6 systolic murmur Lungs: No crackles with upper airway congestion Abdomen: soft, obese, NT, +ve bowel sounds Extremities: no edema Assessment/Plan Assessment/Plan * This patient has had recurrent episodes of bradycardia with junctional rhythm lightheadedness and a recent fall that is suspicious for LOC. We will monitor her for another day and will obtain a TSH and free T4. A permanent pacemaker is anticipated for symptomatic bradycardia. We will avoid any negative chronotropic medications for now. Consult Acknowledgment - Thank you for your consult request.
[2017-01-16 01:25] VITALS: BP 178/72
--- NOTE | 2017-01-16 06:56 | PN- Housestaff ---
FELIPA WISE,TOBIAS 01/16/17 0656: Subjective Follow-up For: Mechanical fall Head injury Complaints: no complaints Tele-Events Since Last Visit: Sinus bradycardia in 50s. Subjective: I followed up and examined the patient today. She is resting comfortably in bed , not in distress, does not have any complaints, vital signs have been stable, telemetry events as noted above, no active issues. She is waiting for her MRI of her spine today. Review of Systems Constitutional: Reports: no symptoms. Objective Last 24 Hrs of Vital Signs/I&O Vital Signs Date Time Temp Pulse Resp B/P B/P Pulse O2 O2 Flow FiO2 Mean Ox Delivery Rate 01/16 0800 97.7 58 18 134/70 94 Room Air 01/16 0125 97.8 63 18 178/72 96 Room Air 01/16 0000 Room Air 01/15 2118 60 170/80 01/15 1606 112/70 01/15 1530 97.4 51 18 112/60 95 Room Air 01/15 1450 170/80 01/15 1150 Room Air Intake & Output 01/16 1600 01/16 0800 01/16 0000 Intake Total 720 480 Output Total 400 400 Balance 320 80 Intake, IV 610 Intake, Oral 110 480 Output, Urine 400 400 Patient 61.235 kg Weight Weight Estimated Measurement Method Physical Exam General Appearance: Alert, Oriented X3, Cooperative, No Acute Distress Other Physical Findings: Skin No Rashes, laceration of left temprol area, no active bleeding. no other trauma Skin Temp/Moisture Exam: Warm/Dry HEENT Trauma: left parietal region has scalp laceration that has five stitches placed, PERRLA, EOMI, Mucous Membr. moist/pink Neck Supple, No JVD Lymphatic no cervical lymphadenopathy Cardiovascular Regular Rate, Normal S1, Normal S2, systolic Murmur + Lungs Clear to Auscultation, Normal Air Movement Abdomen Normal Bowel Sounds, Soft, No Tenderness Neurological Normal Gait, grossly intact Back Tenderness over lower back L>R, spine tenderness at multiple levels of spine Extremities No Clubbing, No Cyanosis, No Edema, Normal Pulses Current Medications: Current Medications Sig/Tricia Start time Last Medication Dose Route Stop Time Status Admin Acetaminophen 650 MG Q6P PRN 01/14 2215 AC PO Aspirin 81 MG DAILY 01/15 1103 DC 01/15 PO 1450 Atorvastatin Calcium 10 MG 1700 01/15 1700 AC 01/15 PO 1606 Budesonide/ 2 PUF BID 01/15 1103 AC 01/16 Formoterol Fumarate INH 1248 Cholecalciferol 1,000 IU DAILY 01/15 1103 AC 01/16 PO 1248 Fenofibrate 145 MG DAILY 01/15 1104 AC 01/16 PO 1247 Fluoxetine HCl 20 MG DAILY 01/15 1104 AC 01/16 PO 1247 Heparin Sodium 5,000 UNIT Q8 01/14 2200 DC 01/15 (Porcine) SC 01/15 2300 2115 Hydralazine HCl 50 MG TID 01/15 1105 AC 01/16 PO 1252 Hydrochlorothiazide 50 MG DAILY 01/15 1105 AC 01/16 PO 1254 Hydromorphone HCl 1 MG Q6 01/15 1600 AC 01/16 PO 0631 Hydromorphone HCl 0.5 MG Q4P PRN 01/14 2215 AC 01/16 IV 0635 Lorazepam 1 MG BID PRN 01/15 1115 AC 01/16 PO 1040 Multivitamins 1 TAB DAILY 01/15 1110 AC 01/16 Therapeutic PO 1248 Omeprazole 20 MG DAILY AC 01/15 1110 AC 01/16 PO 0627 Pregabalin 50 MG BID 01/15 1110 AC 01/16 PO 1251 Sodium Chloride 1,000 ML .[id number] 01/14 2200 AC 01/16 IV 0137 Tiotropium [place] 1 PUF DAILY 01/15 1110 AC 01/16 INH 1247 Last 24 Hrs of Lab/Tylor Results Last 24 Hrs of Labs/Mics: Laboratory Tests 01/16/17 0650: Anion Gap 14, Estimated GFR 33 L, BUN/Creatinine Ratio 33.3 H, TSH 1.250, Free T4 1.64, PT 12.0, INR 1.14, CBC w Diff NO MAN DIFF REQ, RBC 4.58, MCV 90.1, MCH 29.9, RDW 13.8, MPV 10.2, Gran % 57.2, Lymphocytes % 25.3, Monocytes % 13.7 H, Eosinophils % 3.2, Basophils % 0.6, Absolute Granulocytes 4.7, Absolute Lymphocytes 2.1, Absolute Monocytes 1.1 H, Absolute Eosinophils 0.3, Absolute Basophils 0, PUBS MCHC 33.2 Assessment/Plan Assessment: Ms. Kosarko is 86 year old female with past medical history significant for diabetes mellitus, asthma, COPD not on home oxygen, hypertension, hyperlipidemia , bradycardia, chronic kidney disease, chronic lower back pain, chronic left hydronephrosis, osteoarthritis, who presented to ED with chief complaint of mechanical fall at home. Problem list #Mechanical fall with scalp lacertion, no fracture #History of bradycardia (junctional) #Hypertension #Diabetes mellitus #Asthma and COPD on inhalers #Acute on Chronic low back pain #Acute kidney injury on chronic kidney disease -Admit to telemetry floor and managed following problems: #Mechanical fall with scalp laceration, no fracture -Orthostatic BP was negtive -continue telemetry due to fall risk and bradycardia until cleared for any teletry events/by cardiology -PT evaluation #Acute on Chronic back pain -MRI lumbar spine July 2016 revelead moderate levoconvex lumbar scoliosis with multilevel fairly advanced spondylosis. Discussion with interventional radiology team today mentioned that she had acute traumatic fracture of T4 vertebrae recently. -She is planned to get an MRI of thoracic and lumbar spine today and will probably get vertebral augmentation procedure on . Awaiting results of MRI. -Will be kept nothing by mouth after midnight on Saturday -target optimal pain control while watching her heart rate -No NSAIDs, blood thinners, antiplatelets before the procedure #History of junctional bradycardia, HTN -Patient will need a pacemaker implanted, which has been planned for Saturday. -Continue aspirin (hold for tomorrow and for IR procedure) -Monitor for bradycardia in tele for now -Continue fenofibrate -cardiology consultation appreciated #Acute kidney injury on chronic kidney disease -BUN/creatinine 50/1.5 -Baseline creatinine 1.4 -Avoid nephrogenic medication including lasix for now #Diabetes mellitus -Accu-Chek 3 times a day -NovoLog sliding scale 3 times a day #Asthma and COPD on inhalers -TRC -Continue home inhalers Diet heart healthy DVT prophylaxis ALPS for now, later back to SQ Heparin after the procedure Code full Problem List: 1. Fall 2. Compression fracture of thoracic spine, non-traumatic 3. Junctional bradycardia 4. Acute renal injury 5. Diabetes mellitus 6. CKD (chronic kidney disease) Pain Ratin Pain Location: back Pain Goal: Pain 4 or less Pain Plan: prn Tomorrow's Labs & Rationales: INR, BEP, Mg prior to the surgery ANIKA CARRANZA MD 01/16/179: Attending MD Review Statement Attending Statement Attending MD Statement: examined this patient, discuss w/resident/PA/CITY BUS DRIVER, agreed w/resident/PA/CITY BUS DRIVER, discussed with family, reviewed EMR data (avail), discussed with nursing, discussed with case mgmt, reviewed images, amended to note Attending Assessment/Plan: The patient was seen and discussed with house staff. Agree with the plan of care as outlined. To have thoracic vertebral augmentation tomorrow. Clear as per Cardiology. Pacer on 01/18.
[2017-01-16 08:00] VITALS: BP 134/70
[2017-01-16 08:02] LABS: ABSOLUTE BASOPHIL COUNT 0 /CUMM (0.0-0.2); ABSOLUTE EOSINOPHIL COUNT 0.3 /CUMM (0.0-0.7); ABSOLUTE GRANULOCYTE CT 4.7 /CUMM (1.4-6.5); ABSOLUTE LYMPH COUNT 2.1 /CUMM (1.2-3.4); ABSOLUTE MONOCYTE COUNT 1.1 /CUMM (0.10-0.60); BASOPHIL % 0.6 % (0.0-2.0); EOSINOPHIL % 3.2 % (0-5); GRANULOCYTE % 57.2 % (42.2-75.2); HEMATOCRIT 41.2 % (37-47); MEAN CORPUSCULAR HGB 29.9 PG (27.0-31.0); MEAN CORPUSCULAR HGB CONC 33.2 G/DL (33.0-37.0); MEAN CORPUSCULAR VOLUME 90.1 FL (81.0-99.0); MEAN PLATELET VOLUME 10.2 FL (7.4-10.4); PLATELET COUNT 285 /CUMM (130-400); RBC DISTRIBUTION WIDTH 13.8 % (11.5-14.5); RED BLOOD CELL CT 4.58 /CUMM (4.20-5.40); WHITE BLOOD CELL COUNT 8.2 /CUMM (4.8-10.8)
--- NOTE | 2017-01-16 10:31 | NUR ---
Physical Therapy - PT intervention deferred this morning due to MRI pending to assess for acute thoracic and/or lumbar compression fracture to determine appropriateness for vertebroplasty. Will await MRI results to confirm stability of fracture prior to mobilizing. Will f/u.
--- NOTE | 2017-01-16 14:09 | PN- Cardiology ---
Subjective Subjective: * Patient has persistent back pain today after her MRI * sinus bradycardia Objective Vital Signs and I&Os Vital Signs Date Time Temp Pulse Resp B/P B/P Pulse O2 O2 Flow FiO2 Mean Ox Delivery Rate 01/16 1252 58 130/76 01/16 0800 97.7 58 18 134/70 94 Room Air 01/16 0125 97.8 63 18 178/72 96 Room Air 01/16 0000 Room Air 01/15 2118 60 170/80 01/15 1606 112/70 05 1530 97.4 51 18 112/60 95 Room Air 01/15 1450 170/80 Intake & Output 01/16 1600 01/16 0800 05/ 0000 01/15 1600 01/15 0800 01/15 0000 Intake Total 720 480 240 0 Output Total 400 400 600 Balance 320 80 -360 0 Intake, IV 610 Intake, Oral 110 480 240 0 Output, Urine 400 400 600 Patient 135 lb 135 lb 135 lb Weight Weight Estimated Measurement Method Physical Exam: General: WD/ overweight female in NAD; alert and oriented x 3 Neck: no JVD, no carotid bruit Heart: RRR with 2/6 systolic murmur Lungs: No crackles with upper airway congestion Extremities: no edema Assessment/Plan Assessment/Plan * This patient has had recurrent episodes of bradycardia with junctional rhythm lightheadedness and a recent fall that is suspicious for LOC. Her heart rate is somewhat improved today but in the setting of pain. TFT's are WNL. This bradycardia has been a longstanding, rather than transient problem. In addition, it may be creating a pre-renal state. A permanent pacemaker is recommended on Saturday. This patient can undergo vertebroplasty tomorrow prior to the pacemaker placement. We will avoid any negative chronotropic medications for now. Continue telemetry? Yes
--- NOTE | 2017-01-16 14:27 | MRI REPORT ---
EXAMINATION: MRI OF THE THORACIC AND LUMBAR SPINE WITHOUT IV CONTRAST CLINICAL INFORMATION: Pain for vertebral body augmentation planning. COMPARISON: Chest and abdominal CT 01/14/2017 and lumbar spine radiographs 01/15/2017. Lumbar spine MRI 08/13/2016. TECHNIQUE: Multiplanar multisequence MR imaging of the thoracic and lumbar spine obtained without IV contrast. FINDINGS: THORACIC SPINE: There is severe biconcave compression deformity involving the T5 vertebral body with associated marrow edema throughout the vertebral body in keeping with an acute to subacute fracture at this level. The degree of vertebral body height loss at T5 is similar to the 01/14/2017 CT study and has progressed in comparison to the 12/23/[address] There is slight retropulsion of the posterior T5 vertebral body cortex. There is edema adjacent to the T5 spinous process at the site of a small spinous process avulsion fracture seen on the previous CT study. Anterior longitudinal ligament, posterior longitudinal ligament, and ligamentum flavum appear intact. There is marrow edema involving the right inferior corner of the T4 vertebral body with no discrete fracture line seen in this location on the previous CT study. This finding may reflect a bone contusion, nonvisualized fracture, or may be inflammatory. There is mild paravertebral soft tissue swelling at the T4 through the T6 levels. There is an S-shaped scoliosis of the thoracolumbar spine. The vertebral body heights are maintained. There is mild disc volume loss at the T6-T7, T7-T8, and T8-T9 levels. Thoracic cord morphology is normal. No cord signal abnormality is appreciated. There are multiple prominent foraminal perineural cysts within the foramen of the visualized cervical spine and at several levels of the thoracic spine. Soft tissues are better delineated on the recent CT of the chest. At T11-T12 there is a small annular disc bulge. There are no focal disc herniations. There is multilevel facet arthropathy throughout the thoracic spine. T5 vertebral body height loss and slight posterior cortical retropulsion contribute to moderate right-sided foraminal stenosis at the T4-T5 and T5-T6 levels. At T9-T10 and T10-T11, hypertrophic facet arthropathy and disc osteophyte result in fairly severe left-sided foraminal stenosis. LUMBAR SPINE: Lumbar scoliosis is stable. Stable grade 1 anterolisthesis of L3 on L4 and L4 on L5. There are no acute fractures. Chronic superior endplate vertebral body height loss at the L4 level. Remaining vertebral body heights are maintained. Stable disc volume loss and disc desiccation at all lumbar levels. The conus terminates at the L1 level. Partially imaged left UPJ obstruction as discussed on the recent CT study. L1-L2: Diffuse annular disc bulge with a superimposed right lateral disc osteophyte protrusion that appears stable. Bilateral facet arthropathy and ligamentum flavum thickening. The disc protrusion results in unchanged mass effect on the traversing right L2 nerve root within the right subarticular zone and results in moderate to severe right-sided foraminal stenosis with mass effect on the extraforaminal right L1 nerve root that appears unchanged. L2-L3: There is a diffuse annular disc bulge with a superimposed right paracentral/right lateral disc protrusion and there is bilateral hypertrophic facet arthropathy and ligamentum flavum thickening. Findings are unchanged. Disc protrusion results in stable mass effect on the traversing right L3 nerve root within the right subarticular zone and severe right-sided foraminal stenosis with mass effect on the exiting right L2 nerve root. Mild central canal stenosis unchanged. L3-L4: Stable grade 1 anterolisthesis. There is a diffuse disc osteophyte complex and there is severe bilateral hypertrophic facet arthropathy and ligamentum flavum thickening. Findings in concert result in severe central canal stenosis and severe right-sided foraminal stenosis with compression of the exiting right L3 nerve root. L4-L5: Stable grade 1 anterolisthesis. There is a diffuse annular disc bulge that is in part a disc osteophyte complex which remains eccentric to the left side. There is severe bilateral hypertrophic facet arthropathy and ligamentum flavum thickening. Findings in concert result in stable appearing moderate central canal stenosis, severe left greater than right subarticular zone stenosis with mass effect on the traversing left greater than right L5 nerve roots, and moderate bilateral foraminal stenosis with a right lateral disc osteophyte protrusion resulting in mass effect on the extraforaminal right L4 nerve root. At L5-S1 stable appearing diffuse annular disc bulge with a superimposed left lateral disc osteophyte protrusion. There is moderate bilateral facet arthropathy. There is no central canal stenosis. Severe left foraminal stenosis unchanged with mass effect on the exiting left L5 nerve root. IMPRESSION: - Acute to subacute biconcave compression fracture involving the T5 vertebral body with slight posterior cortical retropulsion. The degree of vertebral body height loss at T5 has progressed in comparison to chest CTs dated back to 12/23/2016. There is also a small avulsion fracture off the inferior aspect of the T5 spinous process tip, better seen on the previous CT study with adjacent soft tissue edema on MRI. The major ligaments appear intact, there are no epidural collections, and there is no spinal cord compression. - There is marrow edema involving the right inferior corner of the T4 vertebral body with no discrete fracture line seen in this location on the previous CT study. This finding may reflect a bone contusion, nonvisualized fracture, or may be inflammatory. There is no T4 vertebral body height loss. - No acute fractures within the lumbar spine. - Stable appearing thoracolumbar scoliosis. Advanced spondylosis throughout the lumbar spine is stable that remains greatest at L3-L4 where multifactorial degenerative changes result in severe central canal stenosis. Severe multilevel foraminal and subarticular zone stenosis with mass effect on multiple traversing and exiting nerve roots throughout the lumbar spine unchanged as discussed in detail above. - Degenerative changes result in severe left-sided foraminal stenosis at T9-T10 and T10-T11. T5 vertebral body height loss and slight posterior cortical retropulsion contribute to moderate right-sided foraminal stenosis at the T4-T5 and T5-T6 levels. No severe central canal stenosis within the thoracic spine. - Partially imaged left UPJ obstruction as discussed on the recent CT study.
[2017-01-16 15:30] VITALS: BP 118/64
[2017-01-17 01:02] VITALS: BP 130/60
--- NOTE | 2017-01-17 06:52 | PN- Housestaff ---
FELIPA WISE,TOBIAS 01/17/17 0651: Subjective Follow-up For: Mechanical fall, Head injury Bradycardia Back pain Complaints: no complaints Tele-Events Since Last Visit: Sinus bradycardia, sinus rhythm, with heart rate ranging from 47-67, with some PVCs overnight. Subjective: I followed up and examined the patient today. She is resting comfortably in bed, her only complaint being itchy eyes. She says her pain is moderately controlled with the pain regimen currently, vitals have been stable, still bradycardic, no other issues overnight. She is waiting for vertebral augmentation procedure later during the day. Review of Systems Constitutional: Reports: no symptoms. Objective Last 24 Hrs of Vital Signs/I&O Vital Signs Date Time Temp Pulse Resp B/P B/P Pulse O2 O2 Flow FiO2 Mean Ox Delivery Rate 01/17 0102 98.0 47 18 130/60 97 Nasal 3.0L Cannula 01/17 0000 96 Room Air 01/16 2055 84 124/66 01/16 1717 120/62 01/16 1530 98.0 80 18 118/64 94 Room Air 01/16 1252 58 130/76 01/16 0800 97.7 58 18 134/70 94 Room Air Intake & Output 01/17 0800 05/04 0000 03 1600 Intake Total 490 120 900 Output Total 300 250 650 Balance 190 -130 250 Intake, IV 450 500 Intake, Oral 40 120 400 Output, Urine 300 250 650 Physical Exam General Appearance: Alert, Oriented X3, Cooperative, No Acute Distress Other Physical Findings: Skin No Rashes, laceration of left temprol area, no active bleeding. no other trauma Skin Temp/Moisture Exam: Warm/Dry HEENT Trauma: left parietal region has scalp laceration that has five stitches, placed, crusty eyelids b/l (no signs of infection), was easily wiped away, PERRLA, EOMI, Mucous Membr. moist/pink Neck Supple, No JVD Lymphatic no cervical lymphadenopathy Cardiovascular Regular Rate, Normal S1, Normal S2, systolic Murmur + Lungs Clear to Auscultation, Normal Air Movement Abdomen Normal Bowel Sounds, Soft, No Tenderness Neurological Normal Gait, grossly intact Back Tenderness over lower back L>R, spine tenderness at multiple levels of spine Extremities No Clubbing, No Cyanosis, No Edema, Normal Pulses Current Medications: Current Medications Sig/Tricia Start time Last Medication Dose Route Stop Time Status Admin Acetaminophen 650 MG Q6P PRN 01/14 2215 AC 01/17 PO 0044 Atorvastatin Calcium 10 MG 1700 01/15 1700 AC 01/16 PO 1717 Budesonide/ 2 PUF BID 01/15 1103 AC 01/16 Formoterol Fumarate INH 2056 Cholecalciferol 1,000 IU DAILY 01/15 1103 AC 01/16 PO 1248 Fenofibrate 145 MG DAILY 01/15 1104 AC 01/16 PO 1247 Fluoxetine HCl 20 MG DAILY 01/15 1104 AC 01/16 PO 1247 Hydralazine HCl 50 MG TID 01/15 1105 AC 01/16 PO 205 Hydrochlorothiazide 50 MG DAILY 01/15 1105 AC 01/16 PO 1254 Hydromorphone HCl 1 MG Q6PRN PRN 01/16 1600 AC 01/16 PO 205 Hydromorphone HCl 1 MG Q6 01/15 1600 DC 01/16 PO 0631 Hydromorphone HCl 0.5 MG Q4P PRN 01/14 2215 AC 01/17 IV 0634 Lorazepam 1 MG BID PRN 01/15 1115 AC 01/16 PO 1040 Multivitamins 1 TAB DAILY 01/15 1110 AC 01/16 Therapeutic PO 1248 Omeprazole 20 MG DAILY AC 01/15 1110 AC 01/16 PO 0627 Pregabalin 50 MG BID 01/15 1110 AC 01/16 PO 2056 Sodium Chloride 1,000 ML Q13H 01/17 0000 AC 01/17 IV 0505 0159 0042 Sodium Chloride 1,000 ML .[id number] 01/14 2200 DC 01/16 IV 0137 Tiotropium [place] 1 PUF DAILY 01/15 1110 AC 01/16 INH 1247 Last 24 Hrs of Lab/Tylor Results Last 24 Hrs of Labs/Mics: Laboratory Tests 01/17/17 0621: Sodium Pending, Potassium Pending, Chloride Pending, Carbon Dioxide Pending, Anion Gap Pending, BUN Pending, Creatinine Pending, BUN/Creatinine Ratio Pending , PT Pending, INR Pending Assessment/Plan Assessment: Ms. Branch is 86 year old female with past medical history significant for diabetes mellitus, asthma, COPD not on home oxygen, hypertension, hyperlipidemia , bradycardia, chronic kidney disease, chronic lower back pain, chronic left hydronephrosis, osteoarthritis, who presented to ED with chief complaint of mechanical fall at home. Problem list #Mechanical fall with scalp lacertion, no fracture #History of bradycardia (junctional) #Hypertension #Diabetes mellitus #Asthma and COPD on inhalers #Acute on Chronic low back pain #Acute kidney injury on chronic kidney disease -Admit to telemetry floor and managed following problems: #Mechanical fall with scalp laceration, no fracture -Orthostatic BP was negtive -continue telemetry due to fall risk and bradycardia -PT evaluation #Acute on Chronic back pain -MRI lumbar of thoraco-lumbar spine shows T5 compression fracture with marrow edema, and multi level lumbar degenerative diseage with bulging of discs. -She is planned to get an MRI of thoracic and lumbar spine on Saturday to get vertebral augmentation. But she needs the pacemaker placed before that according to the anesthesia team. Will be kept nothing by mouth after midnight on Saturday for that. -target optimal pain control while watching her heart rate -No NSAIDs, blood thinners, antiplatelets before the procedure #History of junctional bradycardia, afib -Patient will need a pacemaker implanted, which has been planned for tomorrow. -Patient's heart rhythm changed around 1330 hrs today did not seem to have p wave in senior mechanical technician. EKG strip showed atrial fibrillation with low rate, thus proving conduction defect as well. Discussed with Business Consultant Dr Esposito. Will not start anticoagulation, as this can be transient and is getting a pacemaker tomorrow. -Continue aspirin (hold for tomorrow for pacemaker procedure) -Monitor for bradycardia in tele for now #HTN -avoiding any rate lowering drugs -Continue fenofibrate -cardiology consultation appreciated #Acute kidney injury on chronic kidney disease -BUN/creatinine 42/1.4, resolving -Baseline creatinine 1.4 -Avoid nephrogenic medication including lasix for now #Diabetes mellitus -Accu-Chek 3 times a day -NovoLog sliding scale 3 times a day #Asthma and COPD on inhalers -TRC -Continue home inhalers Diet heart healthy DVT prophylaxis ALPS for now, later back to SQ Heparin after the procedure Code full Problem List: 1. Fall 2. Compression fracture of thoracic spine, non-traumatic 3. Junctional bradycardia 4. Acute renal failure 5. Diabetes mellitus 6. CKD (chronic kidney disease) Pain Ratin Pain Location: back (when in pain) Pain Goal: Pain 4 or less Pain Plan: getting vertebral augmentation today, has prn pain meds Tomorrow's Labs & Rationales: INR, CBC, BEP, Mg, getting pacemaker placed tomorrow ANIKA CARRANZA MD 01/17/172101: Attending MD Review Statement Attending Statement Attending MD Statement: examined this patient, discuss w/resident/PA/MEDICATION TECH, agreed w/resident/PA/MEDICATION TECH, discussed with family, reviewed EMR data (avail), discussed with nursing, discussed with case mgmt, amended to note Attending Assessment/Plan: The patient was seen and discussed with house staff, family, case management, cardiology and IR. Plan is for pacemaker placement tomorrow and vertebral augmentation (to be done with arm down) on 01/22. Will continue pain management.
[2017-01-17 08:12] VITALS: BP 122/64
[2017-01-17 08:24] LABS: PT 12.6 SEC (9.4-12.5)
--- NOTE | 2017-01-17 09:51 | NUR ---
CANCELL PT FOR TODAY , PT GOING TO OR FOR PROCEDURE
--- NOTE | 2017-01-17 10:55 | PN- Student ---
JENNY CRAWFORD 01/17/17 1050: Subjective Subjective: Today Mrs. Branch complains primarily of itchy eyes. Her pain is still present but is being controlled with her medications. She denies any chest pain or palpitations, as well as abdominal pain and problems with urination and defecation. She reports no headaches or vision problems and states that she has no neck pain or problem swallowing. Objective Objective: Vital Signs Date Time Temp Pulse Resp B/P B/P Pulse O2 O2 Flow FiO2 Mean Ox Delivery Rate 01/17 0812 98.2 58 20 122/64 94 Room Air 01/17 0102 98.0 47 18 130/60 97 Nasal 3.0L Cannula 01/17 0000 96 Room Air 01/16 2055 84 124/66 01/16 1717 120/62 01/16 1530 98.0 80 18 118/64 94 Room Air 01/16 1252 58 130/76 Intake & Output 01/17 1600 01/17 0800 01/17 0000 Intake Total 490 120 Output Total 300 250 Balance 190 -130 Intake, IV 450 Intake, Oral 40 120 Output, Urine 300 250 Telemetry: Sinus bradycardia to sinus rhythm 47-67 with some PVCs Note: Patient had spinal MRI yesterday results follow. -Thoracic- - acute-subacute biconcave compression fracture of T5, avulsion fracture of T5 spinous process. No spinal compression. Marrow edema of right inferior corner of T4 body with no fracture seen and no height loss. -Lumbar- - stable grade 1 anterolisthesis of L3-L4 and L4-L5. bulging disc at L1-L2, L2- L3, and L5-S1 PE: General- drowsy but alert and oriented x 3, no acute distress HEENT- PEERLA, healing laceration present on left side of calvarium, membranes moist and pink Neck- supple, no thyromegaly or lymphadenopathy. trachea midline CV- S1 and S2 appreciated, bradycardia, no murmurs or rubs heard Chest- vesicular sounds throughout all lung mcanlly, good air flow Abd- soft, non tender to palpation, bowel sounds heard, no distention Back- tender to palpation over the lumbar region of the back, pain greater on the right side that is aggravated by movement Ext- no edema present Skin- warm and well perfused, little dry but without lesions Results Results: Laboratory Tests 01/17/17 0621: Anion Gap 11, Estimated GFR 36 L, BUN/Creatinine Ratio 30.0 H, PT 12.6 H, INR 1.20 H 01/16/17 0650: Anion Gap 14, Estimated GFR 33 L, BUN/Creatinine Ratio 33.3 H, TSH 1.250, Free T4 1.64, PT 12.0, INR 1.14, CBC w Diff NO MAN DIFF REQ, RBC 4.58, MCV 90.1, MCH 29.9, RDW 13.8, MPV 10.2, Gran % 57.2, Lymphocytes % 25.3, Monocytes % 13.7 H, Eosinophils % 3.2, Basophils % 0.6, Absolute Granulocytes 4.7, Absolute Lymphocytes 2.1, Absolute Monocytes 1.1 H, Absolute Eosinophils 0.3, Absolute Basophils 0, PUBS MCHC 33.2 01/15/17 0548: Anion Gap 16, Estimated GFR 31 L, BUN/Creatinine Ratio 35.6 H, Troponin I 0.05 , CBC w Diff NO MAN DIFF REQ, RBC 4.88, MCV 90.4, MCH 29.3, RDW 14.3, MPV 9.2, Gran % 62.7, Lymphocytes % 25.3, Monocytes % 9.0, Eosinophils % 2.2, Basophils % 0.8, Absolute Granulocytes 6.7 H, Absolute Lymphocytes 2.7, Absolute Monocytes 1.0 H, Absolute Eosinophils 0.2, Absolute Basophils 0.1, PUBS MCHC 32.4 L 01/15/17 0109: Troponin I 0.03 01/14/17 2111: Urine Color YEL, Urine Clarity CLEAR, Urine pH 5.5, Ur Specific [place] 1.025, Urine Protein 100 H, Urine Ketones TRACE H, Urine Nitrite NEG, Urine Bilirubin [email or web address]@ICTO, Urine Urobilinogen 1.0, Ur Leukocyte Esterase NEG, Ur Microscopic SEDIMENT EXAMINED, Urine RBC RARE, Urine WBC 1-3 H, Ur Epithelial Cells MOD H, Urine Bacteria MOD H, Hyaline Casts RARE H, Urine Hemoglobin NEG, Urine Glucose NEG 01/14/17 1650: Anion Gap 16, Estimated GFR 28 L, BUN/Creatinine Ratio 32.4 H, Glucose 131 H, Calcium 9.7, Total Bilirubin 1.0, AST 34, ALT 32, Alkaline Phosphatase 69, Troponin I 0.03, Total Protein 7.0, Albumin 3.8, Globulin 3.2, Albumin/Globulin Ratio 1.2, CBC w Diff NO MAN DIFF REQ, RBC 4.81, MCV 90.9, MCH 29.5, RDW 14.3, MPV 9.3, Gran % 68.1, Lymphocytes % 17.9 L, Monocytes % 10.9 H, Eosinophils % 2.6, Basophils % 0.5, Absolute Granulocytes 7.9 H, Absolute Lymphocytes 2.1, Absolute Monocytes 1.3 H, Absolute Eosinophils 0.3, Absolute Basophils 0.1, PUBS MCHC 32.5 L Assessment/Plan Assessment: Ms. Branch is 86 year old white female with past medical history of diabetes mellitus (diet controlled), asthma, COPD (no home oxygen), hypertension, hyperlipidemia, bradycardia, chronic kidney disease, chronic lower back pain, chronic left hydronephrosis, osteoarthritis, who presented to ED with chief complaint of mechanical fall at home resulting in a head laceration. Mrs. Branch was supposed to go for a vertebral augmentation this morning for her L5 compression fracture, however the procedure was postponed until next week due to concerns of her bradycardia. She is scheduled for pacemaker implantation tomorrow. Today she seems anxious to get her procedures done. Her complaint of itchy eyes has resolved and after speaking with her daughter it was found to be a normal occurrence in the mornings for her. So far she seems to be comfortable with her pain medication and does not complain of any issues. Current Medications Sig/Tricia Start time Last Medication Dose Route Stop Time Status Admin Acetaminophen 650 MG .STK-MED ONE 01/17 0032 DC PO 01/17 0033 Acetaminophen 650 MG Q6P PRN 01/14 2215 AC 01/17 PO 0044 Atorvastatin Calcium 10 MG 1700 01/15 1700 AC 01/16 PO 1717 Budesonide/ 2 PUF BID 01/15 1103 AC 01/16 Formoterol Fumarate INH 205 Cholecalciferol 1,000 IU DAILY 01/15 1103 AC 01/16 PO 124 Fenofibrate 145 MG DAILY 01/15 1104 AC 01/16 PO 124 Fluoxetine HCl 20 MG DAILY 01/15 1104 AC 01/16 PO 1247 Hydralazine HCl 50 MG TID 01/15 1105 AC 01/16 PO 205 Hydrochlorothiazide 50 MG DAILY 01/15 1105 AC 01/16 PO 1254 Hydromorphone HCl 1 MG Q6PRN PRN 01/16 1600 AC 05 PO 2053 Hydromorphone HCl 1 MG Q6 01/15 1600 DC 01/16 PO 0631 Hydromorphone HCl 0.5 MG Q4P PRN 01/14 2215 AC 04 IV 0634 Lorazepam 1 MG BID PRN 01/15 1115 AC 01/16 PO 1040 Multivitamins 1 TAB DAILY 01/15 1110 AC 01/16 Therapeutic PO 1248 Omeprazole 20 MG DAILY AC 01/15 1110 AC 01/16 PO 0627 Potassium Chloride 40 MEQ ONCE ONE 01/17 1000 DC PO 01/17 1001 Pregabalin 50 MG BID 01/15 1110 AC 01/16 PO 2056 Sodium Chloride 1,000 ML Q13H 01/17 0000 AC 01/17 IV 01/18 0159 0042 Sodium Chloride 1,000 ML .[id number] 01/14 2200 DC 01/16 IV 0137 Tiotropium [place] 1 PUF DAILY 01/15 1110 AC 01/16 INH 1247 Plan: Mrs. Branch was admitted to us following a mechanical fall that is suspicious of LOC. She was found to have bradycardia so has been followed on telemetry with cardiology as well. As of right now she appears to be in stable condition and is awaiting implantation of pacemaker and vertebral augmentation next week. Plan is to continue to monitor on Telemetry for procedure tomorrow. Problem List: 1. Mechanical fall- head laceration healing nicely, orthostatics have been negative, patient is at fall risk and will see PT. 2. Spinal compression Fx- augmentation postponed, will continue pain medication and attempt to switch from IV to PO today. 3. Junctional Bradycardia- continue to monitor on telemetry, continue fenofibrate, will go for pacemaker implantation tomorrow (hold aspirin) 4. Acute Renal Failure and Chronic Kidney Disease- No lasix for now and no nephrogenic medications. BUN/Paper Cleaner- 30, Paper Cleaner- 1.4 (baseline is 1.4) 5. Diabetes Mellitus- blood glucose monitoring TID w/ sliding scale novolog 6. COPD and Asthma- continue home medications and TRC 7. Hypertension- heart healthy diet and continue home medications Diet: heart healthy DVT prophylaxis: Alps for now, will continue SQ heparin following procedure Code status: full ANIKA CARRANZA MD 01/21/17 4954: Attending MD Review Statement Attending Sign Off Attending Cosign Statement: I have: examined this patient, agreed w/resident/PA/CONTROL BOARD OPERATOR. Other Findings: Agree with above.
[2017-01-17 16:00] VITALS: BP 132/64
--- NOTE | 2017-01-17 17:41 | PN- Cardiology ---
Subjective Subjective: * No current complaints. * Patient is currently in atrial fibrillation with slow heart rate indicative of conduction system disease. Objective Vital Signs and I&Os Vital Signs Date Time Temp Pulse Resp B/P B/P Pulse O2 O2 Flow FiO2 Mean Ox Delivery Rate 01/17 1624 57 144/68 01/17 1114 52 140/80 01/17 0812 98.2 58 20 122/64 94 Room Air 01/17 0102 98.0 47 18 130/60 97 Nasal 3.0L Cannula 01/17 0000 96 Room Air 01/16 2055 84 124/66 Intake & Output 01/17 1600 01/17 0801/17 0000 01/16 1600 01/16 0000 Intake Total 490 120 900 720 480 Output Total 300 250 650 400 400 Balance 190 -130 250 320 80 Intake, IV 450 500 610 Intake, Oral 40 120 400 110 480 Output, Urine 300 250 650 400 400 Patient 135 lb Weight Weight Estimated Measurement Method Physical Exam: General: WD/ overweight female in NAD; alert and oriented x 3 Neck: no JVD, no carotid bruit Heart: irregularly irregular with 2/6 systolic murmur Lungs: No crackles with upper airway congestion Extremities: no edema Assessment/Plan Assessment/Plan * This patient has had recurrent episodes of bradycardia with junctional rhythm lightheadedness and a recent fall that is suspicious for LOC. Her heart rate remains slow even after going into atrial fibrillation which is indicative of conduction system disease. TFT's are WNL. This bradycardia has been a longstanding, rather than transient problem. In addition, it may be creating a pre-renal state. A permanent pacemaker is recommended and will be done tomorrow. Keep NPO except for medications after midnight. Hold anticoagulation. This patient can undergo vertebroplasty on Saturday. Continue telemetry? Yes
--- NOTE | 2017-01-17 21:19 | NUR ---
1730 - PT CURRENTLY IN RATE CONTROLLED AFIB ON THE MONITOR. MD COLLADO NOTIFIED, EKG ORDERED.
[2017-01-18 00:19] VITALS: BP 136/60
--- NOTE | 2017-01-18 07:11 | PN- Housestaff ---
FELIPA WISE,TOBIAS 01/18/17 0710: Subjective Follow-up For: Fall, head injury Atrial fibrillation, bradycardia Complaints: no complaints Tele-Events Since Last Visit: Atrial fibrillation, heart rate ranging from 39-47. Subjective: I followed up and examined the patient today, she is resting comfortably in her bed, not in distress, does not have any complaints, is waiting for pacemaker placement later today, no overnight events. VSS. Review of Systems Constitutional: Reports: no symptoms. Objective Last 24 Hrs of Vital Signs/I&O Vital Signs Date Time Temp Pulse Resp B/P B/P Pulse O2 O2 Flow FiO2 Mean Ox Delivery Rate 01/18 1557 97.5 47 16 128/68 94 Room Air 01/18 0904 98.6 47 16 132/70 05/ 0823 98.6 47 16 132/70 96 Room Air 01/18 0019 98.7 65 18 136/60 97 Room Air 01/18 0000 Room Air 01/17 2045 59 144/68 Intake & Output 01/18 1600 01/18 0800 05/ 0000 Intake Total 120 Output Total 400 400 500 Balance -400 -280 -500 Intake, Oral 120 Output, Urine 400 400 500 Physical Exam General Appearance: Alert, Oriented X3, Cooperative, No Acute Distress Other Physical Findings: Skin No Rashes, laceration of left temprol area, no active bleeding. no other trauma Skin Temp/Moisture Exam: Warm/Dry HEENT Trauma: left parietal region has scalp laceration that has five yanet, placed, eyes not scaly today, PERRLA, EOMI, Mucous Membr. moist/pink Neck Supple, No JVD Lymphatic no cervical lymphadenopathy Cardiovascular Regular Rate, Normal S1, Normal S2, systolic Murmur + Lungs Clear to Auscultation, Normal Air Movement Abdomen Normal Bowel Sounds, Soft, No Tenderness Neurological Normal Gait, grossly intact Back Tenderness over lower back L>R, spine tenderness at multiple levels of spine Extremities No Clubbing, No Cyanosis, No Edema, Normal Pulses Current Medications: Current Medications Sig/Tricia Start time Last Medication Dose Route Stop Time Status Admin Acetaminophen 650 MG .STK-MED ONE 01/17 2330 DC PO 01/17 233 Acetaminophen 650 MG Q6P PRN 01/14 2215 AC 01/17 PO 2331 Atorvastatin Calcium 10 MG 1700 01/15 1700 AC 05/04 PO 1624 Budesonide/ 2 PUF BID 01/15 1103 AC 01/18 Formoterol Fumarate INH 0904 Cholecalciferol 1,000 IU DAILY 01/15 1103 AC 01/18 PO 0904 Fenofibrate 145 MG DAILY 01/15 1104 AC 01/18 PO 0904 Fluoxetine HCl 20 MG DAILY 01/15 1104 AC 01/18 PO 0904 Hydralazine HCl 50 MG TID 01/15 1105 AC 01/18 PO 0904 Hydrochlorothiazide 50 MG DAILY 01/15 1105 AC 01/18 PO 0904 Hydromorphone HCl 1 MG Q6PRN PRN 01/16 1600 AC 01/17 PO 1112 Hydromorphone HCl 0.5 MG Q4P PRN 01/14 2215 AC 01/18 IV 1421 Lorazepam 1 MG BID PRN 01/15 1115 AC 01/16 PO 1040 Multivitamins 1 TAB DAILY 01/15 1110 AC 01/18 Therapeutic PO 0904 Omeprazole 20 MG DAILY AC 01/15 1110 AC 01/16 PO 0627 Pregabalin 50 MG BID 01/15 1110 AC 01/18 PO 0904 Sodium Chloride 1,000 ML Q13H 01/17 1615 DC IV 01/18 0514 Tiotropium [place] 1 PUF DAILY 01/15 1110 AC 01/18 INH 0904 Last 24 Hrs of Lab/Tylor Results Last 24 Hrs of Labs/Mics: Laboratory Tests 01/18/17 0930: Anion Gap 13, Estimated GFR 27 L, BUN/Creatinine Ratio 21.1, PT 12.3, INR 1.17, CBC w Diff NO MAN DIFF REQ, RBC 4.41, MCV 90.2, MCH 29.7, RDW 13.8, MPV 10.4, Gran % 64.2, Lymphocytes % 21.6, Monocytes % 11.3 H, Eosinophils % 2.6, Basophils % 0.3, Absolute Granulocytes 6.0, Absolute Lymphocytes 2.0, Absolute Monocytes 1.1 H, Absolute Eosinophils 0.2, Absolute Basophils 0, PUBS MCHC 33.0 Assessment/Plan Assessment: Ms. Branch is 86 year old female with past medical history significant for diabetes mellitus, asthma, COPD not on home oxygen, hypertension, hyperlipidemia , bradycardia, chronic kidney disease, chronic lower back pain, chronic left hydronephrosis, osteoarthritis, who presented to ED with chief complaint of mechanical fall at home. 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 -She is planned to get an MRI of thoracic and lumbar spine on Saturday to get vertebral augmentation. But she needs the pacemaker placed before that according to the anesthesia team. Will be kept nothing by mouth after midnight on Saturday for that. 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 -Patient's heart rhythm changed to atrial fibrillation with low heart rate, thus proving conduction defect as well. Not on anticoagulation, per back feeder plywood layup line. -Continue aspirin (held for pacemaker procedure) -Monitor for bradycardia in tele for now #Mechanical fall with scalp laceration, no fracture -Orthostatic BP was negtive -continue telemetry due to fall risk and bradycardia -PT evaluation #HTN -avoiding any rate lowering drugs -Continue fenofibrate -cardiology consultation appreciated #Acute kidney injury on chronic kidney disease -BUN/creatinine 38/1.8, was NPO overnight with gentle hydration -Baseline creatinine 1.4 -Avoid nephrogenic medication including lasix for now #Diabetes mellitus -Accu-Chek 3 times a day -NovoLog sliding scale 3 times a day #Asthma and COPD on inhalers -TRC -Continue home inhalers Diet heart healthy DVT prophylaxis ALPS for now, possibly back to SQ Heparin after the procedure Code full Problem List: 1. Fall 2. Atrial fibrillation 3. Bradycardia 4. Acute renal failure 5. Diabetes mellitus 6. CKD (chronic kidney disease) Pain Ratin Pain Location: back, max 10 Pain Goal: Pain 4 or less Pain Plan: prn Tomorrow's Labs & Rationales: CBC, BEP, Mg to follow up after procedure, ANIKA Bermudez MD 01/18/17 6246: Attending MD Review Statement Attending Statement Attending MD Statement: examined this patient, discuss w/resident/PA/FISCAL ACCOUNTING CLERK, agreed w/resident/PA/FISCAL ACCOUNTING CLERK, discussed with family, reviewed EMR data (avail), discussed with nursing, discussed with case mgmt, amended to note Attending Assessment/Plan: The patient was seen and discussed with house staff. Agree with the plan of care as outlined. Still with significant pain. Pacemaker placed today. Will continue telemetry and plan to do vertebral augmentation (thoracic) on Saturday01/22/17 ( Dr. Portillo in Interventional Radiology). Continue Dilaudid for pain.
--- NOTE | 2017-01-18 07:20 | PN- Student ---
Subjective Subjective: This morning Mrs. Branch is waiting for her procedure to get her pacemaker. she complains of back pain of 10/10 (hasnt gotten pain medication yet) but denies any leg pains. She states that she does have some occaisional abdominal pains but states that she hasnt had a bowel movement in several days. She reports no increased shortness of breath or chest pains and states that urination has been normal. She slept well throughout the night and has had no headaches or appetite changes. Objective Objective: Vital Signs Date Time Temp Pulse Resp B/P B/P Pulse O2 O2 Flow FiO2 Mean Ox Delivery Rate 01/18 0019 98.7 65 18 136/60 97 Room Air 01/18 0000 Room Air 01/17 2045 59 144/68 01/17 1624 57 144/68 01/17 1600 97.8 56 18 132/64 94 Room Air 01/17 1114 52 140/80 01/17 0812 98.2 58 20 122/64 94 Room Air Intake & Output 01/18 1600 01/18 0800 01/18 0000 Intake Total 120 Output Total 400 500 Balance -280 -500 Intake, Oral 120 Output, Urine 400 500 Telemetry: atrial fibrillation 39-47 w/ no events Note: ECG showed atrial fibrillation yesterday evening. Dr. Esposito stated that its a normal occurrence for her and that he doesnt wish to start anticoagulant therapy yet. May start following her procedures. PE: General- alert and oriented x 3, slightly uncomfortable and a little anxious HEENT- PEERLA, healing laceration present on left side of calvarium, membranes moist and pink Neck- supple, no thyromegaly or lymphadenopathy. trachea midline CV- S1 and S2 appreciated, irregularly irregular rhythm, systolic murmur 2/6, no rubs heard Chest- vesicular sounds throughout all lung mcnally, good air flow Abd- soft, slightly tender on right side around to back (described as aching with instances of sharp pain), bowel sounds heard, no distention Back- tender to palpation over the lumbar region of the back, pain greater on the right side that is aggravated by movement Ext- no edema present Skin- warm and well perfused, little dry but without lesions Results Results: Laboratory Tests 01/18/17 0930: Anion Gap 13, Estimated GFR 27 L, BUN/Creatinine Ratio 21.1, PT 12.3, INR 1.17, CBC w Diff NO MAN DIFF REQ, RBC 4.41, MCV 90.2, MCH 29.7, RDW 13.8, MPV 10.4, Gran % 64.2, Lymphocytes % 21.6, Monocytes % 11.3 H, Eosinophils % 2.6, Basophils % 0.3, Absolute Granulocytes 6.0, Absolute Lymphocytes 2.0, Absolute Monocytes 1.1 H, Absolute Eosinophils 0.2, Absolute Basophils 0, PUBS MCHC 33.0 01/17/17 0621: Anion Gap 11, Estimated GFR 36 L, BUN/Creatinine Ratio 30.0 H, PT 12.6 H, INR 1.20 H 01/16/17 0650: Anion Gap 14, Estimated GFR 33 L, BUN/Creatinine Ratio 33.3 H, TSH 1.250, Free T4 1.64, PT 12.0, INR 1.14, CBC w Diff NO MAN DIFF REQ, RBC 4.58, MCV 90.1, MCH 29.9, RDW 13.8, MPV 10.2, Gran % 57.2, Lymphocytes % 25.3, Monocytes % 13.7 H, Eosinophils % 3.2, Basophils % 0.6, Absolute Granulocytes 4.7, Absolute Lymphocytes 2.1, Absolute Monocytes 1.1 H, Absolute Eosinophils 0.3, Absolute Basophils 0, PUBS MCHC 33.2 Assessment/Plan Assessment: Ms. Branch is 86 year old white female with past medical history of diabetes mellitus (diet controlled), asthma, COPD (no home oxygen), hypertension, hyperlipidemia, bradycardia, chronic kidney disease, chronic lower back pain, chronic left hydronephrosis, osteoarthritis, who presented to ED with chief complaint of mechanical fall at home resulting in a head laceration. Yesterday her ECG showed atrial fibrillation, Dr. Esposito is aware and does not wish for anticoagulation therapy yet. Her heart rate is still bradycardic and she has no signs or symptoms of distress. Her abdominal pain is most likely due to fecal buildup as she hasnt had a bowel movement in over 4 days. She wishes to wait until after the procedure to receive medicine for her constipation. Her pain was high at the time of exam but it was prior to her receiving any pain medications. She is scheduled to receive a pacemaker at 2pm today and she is to have a vertebroplasty on saturday of next week. Current Medications Sig/Tricia Start time Last Medication Dose Route Stop Time Status Admin Acetaminophen 650 MG .STK-MED ONE 01/17 2330 DC PO 01/17 2331 Acetaminophen 650 MG Q6P PRN 01/14 2215 AC 01/17 PO 2331 Atorvastatin Calcium 10 MG 1700 01/15 1700 AC 01/17 PO 1624 Budesonide/ 2 PUF BID 01/15 1103 AC 01/17 Formoterol Fumarate INH 2045 Cholecalciferol 1,000 IU DAILY 01/15 1103 AC 01/17 PO 1113 Fenofibrate 145 MG DAILY 01/15 1104 AC 01/17 PO 1114 Fluoxetine HCl 20 MG DAILY 01/15 1104 AC 01/17 PO 1114 Hydralazine HCl 50 MG TID 01/15 1105 AC 01/17 PO 2045 Hydrochlorothiazide 50 MG DAILY 01/15 1105 AC 01/17 PO 1122 Hydromorphone HCl 1 MG Q6PRN PRN 01/16 1600 AC 01/17 PO 1112 Hydromorphone HCl 0.5 MG Q4P PRN 01/14 2215 AC 01/18 IV 0455 Lorazepam 1 MG BID PRN 01/15 1115 AC 01/16 PO 1040 Multivitamins 1 TAB DAILY 01/15 1110 AC 01/17 Therapeutic PO 1114 Omeprazole 20 MG DAILY AC 01/15 1110 AC 01/16 PO 0627 Patient Medication 1 ED .STK-MED ONE 01/17 1355 DC Teaching ED 01/17 1356 Potassium Chloride 40 MEQ ONCE ONE 01/17 1000 DC 01/17 PO 01/17 1001 1122 Pregabalin 50 MG BID 01/15 1110 AC 01/17 PO 2044 Sodium Chloride 1,000 ML Q13H 01/17 1615 DC IV 01/18 0514 Sodium Chloride 1,000 ML Q13H / 0000 DC 05 IV 01/18 0159 0042 Tiotropium [place] 1 PUF DAILY 01/15 1110 AC 01/17 INH 1122 Plan: Patient is awaiting procedure to place pacemaker today. She has been PO in preparation for the procedure. Following the procedure she wishes to have medicine for her constipation. Will consult with Cardiology on anticoagulation therapy for her atrial fibrillation post procedure. Problem List: 1. Mechanical fall- head laceration healing nicely, orthostatics have been negative, patient is at fall risk and will see PT. 2. Spinal compression Fx- augmentation postponed, will continue pain medication and attempt to switch from IV to PO today. 3. atrial fibrillation- hold anticoagulation for now, follow up with cardiology after pacemaker implantation. 4. Junctional Bradycardia- continue to monitor on telemetry, continue fenofibrate, will go for pacemaker implantation tomorrow (hold aspirin) 5. Acute Renal Failure and Chronic Kidney Disease- No lasix for now and no nephrogenic medications. BUN/Customer Support Advisor- 30, Customer Support Advisor- 1.4 (baseline is 1.4) 6. Diabetes Mellitus- blood glucose monitoring TID w/ sliding scale novolog 7. COPD and Asthma- continue home medications and TRC 8. Hypertension- heart healthy diet and continue home medications Diet: heart healthy DVT prophylaxis: Alps for now, will continue SQ heparin following procedure Code status: full
[2017-01-18 08:23] VITALS: BP 132/70
[2017-01-18 10:34] LABS: ABSOLUTE BASOPHIL COUNT 0 /CUMM (0.0-0.2); ABSOLUTE EOSINOPHIL COUNT 0.2 /CUMM (0.0-0.7); ABSOLUTE MONOCYTE COUNT 1.1 /CUMM (0.10-0.60); BASOPHIL % 0.3 % (0.0-2.0); EOSINOPHIL % 2.6 % (0-5); GRANULOCYTE % 64.2 % (42.2-75.2); HEMATOCRIT 39.8 % (37-47); MEAN CORPUSCULAR HGB 29.7 PG (27.0-31.0); MEAN CORPUSCULAR VOLUME 90.2 FL (81.0-99.0); MEAN PLATELET VOLUME 10.4 FL (7.4-10.4); PLATELET COUNT 299 /CUMM (130-400); RBC DISTRIBUTION WIDTH 13.8 % (11.5-14.5); RED BLOOD CELL CT 4.41 /CUMM (4.20-5.40); WHITE BLOOD CELL COUNT 9.3 /CUMM (4.8-10.8)
[2017-01-18 10:38] LABS: PT 12.3 SEC (9.4-12.5)
[2017-01-18 15:57] VITALS: BP 128/68
--- NOTE | 2017-01-18 18:55 | RADIOLOGY REPORT ---
EXAMINATION: XR PORTABLE CHEST CLINICAL INFORMATION: Status post placement replacement. Evaluate for pneumothorax. COMPARISON: CT chest without contrast 01/14/2017. Chest x-ray 08/27/2016. TECHNIQUE: Portable frontal view of the chest was obtained. FINDINGS: Single AP view of the chest demonstrates significant pulmonary hypoinflation which limits evaluation of the bilateral lungs. There is a left chest wall cardiac pacemaker with leads identified in the expected region of the right atrium and right ventricle. There are no visible pneumothoraces or pleural effusions. There is bibasilar subsegmental atelectasis. There are severe degenerative changes involving the left glenohumeral joint. IMPRESSION: Limited exam secondary to significant pulmonary hypoinflation. There is a left chest wall cardiac pacemaker with leads identified in the expected region of the right atrium and right ventricle. No large pneumothoraces are identified.
--- NOTE | 2017-01-18 18:56 | RADIOLOGY REPORT ---
EXAMINATION:\H\ \N\XR CHEST CLINICAL INFORMATION: Pacemaker insertion. COMPARISON: CXR of 08/27/2016. Chest CT of 01/14/2017. TECHNIQUE: AP view of the chest was obtained. FINDINGS: Again noted is chronic elevation of the right diaphragm and mild atelectasis in the lung bases. No acute interstitial edema, focal consolidation or overt pleural effusion. Cardiac silhouette is mildly enlarged, unchanged, and the dual-chamber pacing leads are in their expected positions. No postprocedure pneumothorax. Thoracic aorta is calcified. There is mild dextroscoliosis of the degenerated thoracic spine. There is severe osteoarthritis of the visualized left glenohumeral joint. IMPRESSION: Dual-chamber cardiac pacing leads are in their expected positions. No acute pulmonary edema or pneumothorax.
[2017-01-19 01:03] VITALS: BP 166/68
--- NOTE | 2017-01-19 08:48 | PN- Housestaff ---
RAFI WISE,[facility] [place] 01/19/17 0848: Subjective Follow-up For: Fall, head injury Atrial fibrillation, bradycardia Tele-Events Since Last Visit: Paced sinus rhythm HR 59-60 Subjective: No acute events overnight. Patient seen and examined this morning. She is doing well following placement of permanent pacemaker yesterday. She endorses constipation but has no other complaints. She denies chest pain, shortness of breath or palpitations. Review of Systems Constitutional: Reports: see HPI. Objective Last 24 Hrs of Vital Signs/I&O Vital Signs Date Time Temp Pulse Resp B/P B/P Pulse O2 O2 Flow FiO2 Mean Ox Delivery Rate 01/19 2110 63 05/ 1812 64 122/60 05/06 1548 98.6 64 18 122/60 94 Room Air / 1019 104/66 05/ 0850 98.0 60 18 98/68 95 Room Air / 0103 98.2 60 20 166/68 97 Nasal 2.0L Cannula Intake & Output 01/19 1600 / 0800 05/ 0000 Intake Total 600 250 130 Output Total 450 400 Balance 150 -150 130 Intake, IV 10 10 Intake, Oral 600 240 120 Output, Urine 450 400 Physical Exam General Appearance: Alert, Oriented X3, No Acute Distress HEENT: Atraumatic, Mucous Membr. moist/pink Cardiovascular: Regular Rate, Normal S1, Normal S2 Lungs: Clear to Auscultation Abdomen: Soft, No Tenderness, Positive Bowel Sounds Extremities: No Clubbing, No Cyanosis, No Edema Current Medications: Current Medications Sig/Tricia Start time Last Medication Dose Route Stop Time Status Admin Acetaminophen 650 MG Q6P PRN 01/14 2215 AC 01/17 PO 2331 Atorvastatin Calcium 10 MG 1700 01/15 1700 AC 01/19 PO 1812 Budesonide/ 2 PUF BID 01/15 1103 AC 01/19 Formoterol Fumarate INH 2110 Cephalexin 500 MG BID 01/19 1000 AC 01/19 PO 2110 Cholecalciferol 1,000 IU DAILY 01/15 1103 AC 01/19 PO 1018 Fenofibrate 145 MG DAILY 01/15 1104 AC 01/19 PO 1018 Fluoxetine HCl 20 MG DAILY 01/15 1104 AC 01/19 PO 1019 Hydralazine HCl 50 MG TID 01/15 1105 AC 01/19 PO 211 Hydrochlorothiazide 50 MG DAILY 01/15 1105 AC 01/19 PO 1019 Hydromorphone HCl 1 MG Q6PRN PRN 01/16 1600 AC 01/19 PO 1816 Hydromorphone HCl 0.5 MG Q4P PRN 01/14 2215 AC 01/19 IV 0105 Lorazepam 1 MG BID PRN 01/15 1115 AC 01/16 PO 1040 Magnesium Oxide 400 MG ONE ONE 01/19 1515 DC 01/19 PO 01/19 1516 1815 Multivitamins 1 TAB DAILY 01/15 1110 AC 01/19 Therapeutic PO 1018 Omeprazole 20 MG DAILY AC 01/15 1110 AC 01/19 PO 0601 Polyethylene Glycol 17 GM DAILY 01/19 1156 AC 01/19 PO 1815 Pregabalin 50 MG BID 01/15 1110 AC 01/19 PO 2110 Senna/Docusate Sodium 1 TAB BID 01/19 1156 AC 01/19 PO 1815 Tiotropium [place] 1 PUF DAILY 01/15 1110 AC 01/19 INH 1018 Last 24 Hrs of Lab/Tylor Results Last 24 Hrs of Labs/Mics: Laboratory Tests 01/19/17 0730: Anion Gap 15, Estimated GFR 36 L, BUN/Creatinine Ratio 23.6, Magnesium 1.9, CBC w Diff NO MAN DIFF REQ, RBC 4.24, MCV 90.2, MCH 29.5, RDW 14.2, MPV 9.9, Gran % 60.6, Lymphocytes % 23.5, Monocytes % 11.7 H, Eosinophils % 3.8, Basophils % 0.4, Absolute Granulocytes 4.4, Absolute Lymphocytes 1.7, Absolute Monocytes 0.8 H, Absolute Eosinophils 0.3, Absolute Basophils 0, PUBS MCHC 32.7 L Orders Radiology Findings: Limited exam secondary to significant pulmonary hypoinflation. There is a left chest wall cardiac pacemaker with leads identified in the expected region of the right atrium and right ventricle. No large pneumothoraces are identified. Assessment/Plan Assessment: Ms. Branhc is 86 year old female with past medical history significant for diabetes mellitus, asthma, COPD not on home oxygen, hypertension, hyperlipidemia , bradycardia, chronic kidney disease, chronic lower back pain, chronic left hydronephrosis, osteoarthritis, who presented to ED with chief complaint of mechanical fall at home. 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 -She is planned to get an MRI of thoracic and lumbar spine on Saturday to get vertebral augmentation. But she needs the pacemaker placed before that according to the anesthesia team. Will be kept nothing by mouth after midnight on Saturday for that. -target optimal pain control while watching her heart rate -No NSAIDs, blood thinners, antiplatelets before the procedure #History of junctional bradycardia, s/p pacemaker placement -S/p pacemaker placement yesterday. Currently in sinus rhythm. Interrogation of pacemaker this AM reveals that pacemaker is functioning normally. -Continue aspirin (held for pacemaker procedure) -Monitor on telemetry for atrial fibrillation. If further episodes are noted, consider anticoagulation. #Mechanical fall with scalp laceration, no fracture -Orthostatic BP was negtive -continue telemetry due to fall risk and bradycardia -PT evaluation #HTN -avoiding any rate lowering drugs -Continue fenofibrate -cardiology consultation appreciated #Acute kidney injury on chronic kidney disease -Cr improved to baseline, 1.4 today -Avoid nephrogenic medication including lasix for now #Diabetes mellitus -Accu-Chek 3 times a day -NovoLog sliding scale 3 times a day #Asthma and COPD on inhalers -TRC -Continue home inhalers #Constipation -Scheduled Miralax and Senokot S with parameters to hold for loose stools. Diet heart healthy DVT prophylaxis Consider resuming HSQ (discontinued for pacemaker placement) and ALPs Code full Problem List: 1. Atrial fibrillation 2. Fall 3. Bradycardia 4. Acute renal failure 5. Diabetes mellitus 6. CKD (chronic kidney disease) 7. S/P placement of cardiac pacemaker 8. Constipation Pain Ratin Pain Location: N/A Pain Goal: Remain pain free Pain Plan: Dilaudid 0.5 mg IV Q4H PRN for severe pain (scale 7-10) Dilaudid 1 mg PO Q6H PRN for moderate pain (scale 4-6) Tylenol 650 mg PO Q6H PRN for mild pain (scale 1-3) Tomorrow's Labs & Rationales: None MARIA G WISE,M[place] 01/19/17 1526: Attending MD Review Statement Attending Statement Attending MD Statement: examined this patient, discuss w/resident/PA/ANDROID DEVELOPER, agreed w/resident/PA/ANDROID DEVELOPER, reviewed EMR data (avail), discussed with nursing, amended to note Attending Assessment/Plan: Patient seen and examined. Resting comfortably chest. No issues overnight reported by nursing staff. She is currently in sinus rhythm on telemetry. She offers no complaints today other than constipation. Exam abdomen is soft and nontender. Recommendations: -Administer bowel regimen for her constipation. -Awaiting vertebral augmentation discharge today. -Continue telemetry monitoring per cardiology recommendations for any recurrence of atrial fibrillation. If so she may require anticoagulation. -No need for repeat labs tomorrow.
[2017-01-19 08:50] VITALS: BP 98/68
[2017-01-19 09:06] LABS: ABSOLUTE BASOPHIL COUNT 0 /CUMM (0.0-0.2); ABSOLUTE EOSINOPHIL COUNT 0.3 /CUMM (0.0-0.7); ABSOLUTE GRANULOCYTE CT 4.4 /CUMM (1.4-6.5); ABSOLUTE LYMPH COUNT 1.7 /CUMM (1.2-3.4); ABSOLUTE MONOCYTE COUNT 0.8 /CUMM (0.10-0.60); BASOPHIL % 0.4 % (0.0-2.0); EOSINOPHIL % 3.8 % (0-5); GRANULOCYTE % 60.6 % (42.2-75.2); HEMATOCRIT 38.2 % (37-47); MEAN CORPUSCULAR HGB 29.5 PG (27.0-31.0); MEAN CORPUSCULAR HGB CONC 32.7 G/DL (33.0-37.0); MEAN CORPUSCULAR VOLUME 90.2 FL (81.0-99.0); MEAN PLATELET VOLUME 9.9 FL (7.4-10.4); PLATELET COUNT 279 /CUMM (130-400); RBC DISTRIBUTION WIDTH 14.2 % (11.5-14.5); RED BLOOD CELL CT 4.24 /CUMM (4.20-5.40); WHITE BLOOD CELL COUNT 7.3 /CUMM (4.8-10.8)
--- NOTE | 2017-01-19 10:44 | PN- Cardiology ---
Subjective Subjective: Doing well status post permanent pacemaker placement yesterday. No chest pain. No shortness of breath. No diaphoresis. No palpitations. No nausea or vomiting. Objective Vital Signs and I&Os Vital Signs Date Time Temp Pulse Resp B/P B/P Pulse O2 O2 Flow FiO2 Mean Ox Delivery Rate 01/19 1019 104/66 01/19 0850 98.0 60 18 98/68 95 Room Air 01/19 0103 98.2 60 20 166/68 97 Nasal 2.0L Cannula 01/18 2117 60 01/18 1557 97.5 47 16 128/68 94 Room Air Intake & Output 01/19 1600 01/19 0800 / 0000 01/18 1600 01/18 0800 01/18 0000 Intake Total 250 130 120 Output Total 400 400 400 500 Balance -150 130 -400 -280 -500 Intake, IV 10 10 Intake, Oral 240 120 120 Output, Urine 400 400 400 500 Physical Exam: Gen: NAD HEENT: normal Lungs: clear to auscultation, normal resp. effort Heart: RRR, S1, S2, 2/6 systolic murmur Abdomen: Soft, nontender, no masses Extremities: No clubbing, cyanosis, or edema. Neuro: Alert and oriented x 3, cranial nerves intact Current Medications: Current Medications Sig/Tricia Start time Last Medication Dose Route Stop Time Status Admin Acetaminophen 650 MG Q6P PRN 01/14 2215 AC 01/17 PO 2331 Atorvastatin Calcium 10 MG 1700 01/15 1700 AC 01/18 PO 2117 Budesonide/ 2 PUF BID 01/15 1103 AC 01/19 Formoterol Fumarate INH 1018 Cephalexin 500 MG BID 01/19 1000 AC 01/19 PO 1019 Cholecalciferol 1,000 IU DAILY 01/15 1103 AC 01/19 PO 1018 Enalaprilat 2.5 MG .STK-MED ONE 01/18 1829 DC IV 01/18 1830 Fenofibrate 145 MG DAILY 01/15 1104 AC 01/19 PO 1018 Fentanyl Citrate 100 MCG .STK-MED ONE 01/18 1320 DC IM 01/18 1321 Fluoxetine HCl 20 MG DAILY 01/15 1104 AC 01/19 PO 1019 Hydralazine HCl 50 MG TID 01/15 1105 AC 01/19 PO 1019 Hydrochlorothiazide 50 MG DAILY 01/15 1105 AC 01/19 PO 1019 Hydromorphone HCl 1 MG Q6PRN PRN 01/16 1600 AC 01/19 PO 0434 Hydromorphone HCl 0.5 MG Q4P PRN 01/14 2215 AC 01/19 IV 0105 Lorazepam 1 MG BID PRN 01/15 1115 AC 01/16 PO 1040 Multivitamins 1 TAB DAILY 01/15 1110 AC 01/19 Therapeutic PO 1018 Omeprazole 20 MG DAILY AC 01/15 1110 AC 01/19 PO 0601 Pregabalin 50 MG BID 01/15 1110 AC 01/19 PO 1018 Tiotropium [place] 1 PUF DAILY 01/15 1110 AC 01/19 INH 1018 Results Last 48 Hrs of Labs/Mics: Laboratory Tests 01/19/17 0730: Anion Gap 15, Estimated GFR 36 L, BUN/Creatinine Ratio 23.6, Magnesium 1.9, CBC w Diff Pending, WBC Pending, RBC Pending, Hgb Pending, Hct Pending, MCV Pending, MCH Pending, RDW Pending, Plt Count Pending, MPV Pending, PUBS MCHC Pending 01/18/17 0930: Anion Gap 13, Estimated GFR 27 L, BUN/Creatinine Ratio 21.1, PT 12.3, INR 1.17, CBC w Diff NO MAN DIFF REQ, RBC 4.41, MCV 90.2, MCH 29.7, RDW 13.8, MPV 10.4, Gran % 64.2, Lymphocytes % 21.6, Monocytes % 11.3 H, Eosinophils % 2.6, Basophils % 0.3, Absolute Granulocytes 6.0, Absolute Lymphocytes 2.0, Absolute Monocytes 1.1 H, Absolute Eosinophils 0.2, Absolute Basophils 0, PUBS MCHC 33.0 Recent Imaging Studies: Chest x-ray: Limited exam secondary to significant pulmonary hypoinflation. There is a left chest wall cardiac pacemaker with leads identified in the expected region of the right atrium and right ventricle. No large pneumothoraces are identified. Pacemaker interrogation this morning shows that the pacemaker is functioning normally. Assessment/Plan Assessment/Plan Assessment: 1. Sick sinus syndrome status post permanent pacemaker 2. Vaginal atrial fibrillation, currently in sinus rhythm 3. Hypertension, controlled Plan: * Continue current cardiac medications. * Monitor for further episodes of atrial fibrillation. If she is noted to have fibrillation, then anticoagulation should be considered. Continue telemetry? Yes
[2017-01-19 15:48] VITALS: BP 122/60
[2017-01-20 00:48] VITALS: BP 150/70
[2017-01-20 08:33] VITALS: BP 148/66
--- NOTE | 2017-01-20 08:42 | PN- Housestaff ---
FELIPA WISE,TOBIAS 01/20/17 0842: Subjective Follow-up For: Bradycardia, status post pacemaker implant Compressed vertebral fractures Complaints: back pain Tele-Events Since Last Visit: Normal sinus rhythm, single pacing, PVCs, heart rate ranging from 60-63. Subjective: Patient followed up and examined by me today. She is resting comfortably in her recliner, her only complaints being intermittent back pain whenever she tries to move around, telemetry event noted as above, vital signs otherwise have been stable, no other issues. Review of Systems Constitutional: Reports: see HPI. Objective Last 24 Hrs of Vital Signs/I&O Vital Signs Date Time Temp Pulse Resp B/P B/P Pulse O2 O2 Flow FiO2 Mean Ox Delivery Rate 01/20 2113 70 130/64 01/20 1644 98.1 62 18 133/68 97 Room Air 01/20 1612 133/68 01/20 0933 140/60 01/20 0833 98.4 67 18 148/66 96 Room Air 01/20 0048 97.8 69 20 150/70 97 Room Air Intake & Output 01/20 1600 01/20 0800 01/20 0000 Intake Total 400 130 250 Output Total 700 Balance -300 130 250 Intake, IV 10 10 Intake, Oral 400 120 240 Output, Urine 700 Patient 61.235 kg Weight Physical Exam General Appearance: Alert, Oriented X3, Cooperative, No Acute Distress Other Physical Findings: Skin No Rashes, laceration of left temprol area, no active bleeding. no other trauma Anterior left side of the chest has a dressing over the pacemaker implantation site. No signs of infections. Skin Temp/Moisture Exam: Warm/Dry HEENT Trauma: left parietal region has scalp laceration that has five yanet, placed, eyes not scaly today, PERRLA, EOMI, Mucous Membr. moist/pink Neck Supple, No JVD Lymphatic no cervical lymphadenopathy Cardiovascular Regular Rate, Normal S1, Normal S2, systolic Murmur + Lungs Clear to Auscultation, Normal Air Movement Abdomen Normal Bowel Sounds, Soft, No Tenderness Neurological Normal Gait, grossly intact Back Tenderness over lower back L>R, spine tenderness at multiple levels of spine Extremities No Clubbing, No Cyanosis, No Edema, Normal Pulses Current Medications: Current Medications Sig/Tricia Start time Last Medication Dose Route Stop Time Status Admin Acetaminophen 650 MG Q6P PRN 01/14 2215 AC 01/17 PO 2331 Atorvastatin Calcium 10 MG 1700 01/15 1700 AC 01/20 PO 1610 Budesonide/ 2 PUF BID 01/15 1103 AC 01/20 Formoterol Fumarate INH 2113 Cephalexin 500 MG BID 01/19 1000 DC 01/20 PO 0932 Cholecalciferol 1,000 IU DAILY 01/15 1103 AC 01/20 PO 0932 Fenofibrate 145 MG DAILY 01/15 1104 AC 01/20 PO 0932 Fluoxetine HCl 20 MG DAILY 01/15 1104 AC 01/20 PO 0932 Hydralazine HCl 50 MG TID 01/15 1105 AC 01/20 PO 2113 Hydrochlorothiazide 50 MG DAILY 01/15 1105 AC 01/20 PO 0933 Hydromorphone HCl 1 MG Q6PRN PRN 01/16 1600 AC 01/20 PO 2112 Hydromorphone HCl 0.5 MG Q4P PRN 01/14 2215 AC 01/20 IV 0037 Lorazepam 1 MG BID PRN 01/15 1115 AC 01/16 PO 1040 Multivitamins 1 TAB DAILY 01/15 1110 AC 01/20 Therapeutic PO 0932 Omeprazole 20 MG DAILY AC 01/15 1110 AC 01/20 PO 0527 Polyethylene Glycol 17 GM DAILY 01/19 1156 AC 01/20 PO 0932 Pregabalin 50 MG BID 01/15 1110 AC 01/20 PO 2112 Senna/Docusate Sodium 1 TAB BID 01/19 1156 AC 01/20 PO 0932 Tiotropium [place] 1 PUF DAILY 01/15 1110 AC 01/20 INH 0932 Assessment/Plan Assessment: Ms. Branch is 86 year old female with past medical history significant for diabetes mellitus, asthma, COPD not on home oxygen, hypertension, hyperlipidemia , bradycardia, chronic kidney disease, chronic lower back pain, chronic left hydronephrosis, osteoarthritis, who presented to ED with chief complaint of mechanical fall at home. 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 -She is planned to get an MRI of thoracic and lumbar spine on Saturday to get vertebral augmentation. But she needs the pacemaker placed before that according to the anesthesia team. Will be kept nothing by mouth after midnight on Saturday for that. -target optimal pain control while watching her heart rate -No NSAIDs, blood thinners, antiplatelets before the procedure #History of junctional bradycardia, s/p pacemaker placement -S/p pacemaker placement on Saturday. Currently in sinus rhythm. Interrogation of pacemaker yesterday AM revealed that pacemaker is functioning normally. -Continue aspirin (held for pacemaker procedure) -Monitor on telemetry for atrial fibrillation. If further episodes are noted, consider anticoagulation. None so far. #Mechanical fall with scalp laceration, no fracture -Orthostatic BP was negtive -continue telemetry due to fall risk and bradycardia -PT evaluation #HTN -avoiding any rate lowering drugs -Continue fenofibrate -cardiology consultation appreciated #Acute kidney injury on chronic kidney disease -Cr improved to baseline, 1.4 today -Avoid nephrogenic medication including lasix for now #Diabetes mellitus -Accu-Chek 3 times a day -NovoLog sliding scale 3 times a day #Asthma and COPD on inhalers -TRC -Continue home inhalers #Constipation -Scheduled Miralax and Senokot S with parameters to hold for loose stools. Diet heart healthy DVT prophylaxis Consider resuming HSQ (discontinued for pacemaker placement) and ALPs Code full Problem List: 1. S/P placement of cardiac pacemaker 2. Compression fracture of body of thoracic vertebra Pain Ratin Pain Location: back Pain Goal: Pain 4 or less Pain Plan: home meds plus prn, planning for vertebral augmentation on Saturday Tomorrow's Labs & Rationales: INR, BEP, CBC MARIA G WISE,MASON 01/20/17 1331: Attending MD Review Statement Attending Statement Attending MD Statement: examined this patient, discuss w/resident/PA/AUDITING CONTROL CLERK, agreed w/resident/PA/AUDITING CONTROL CLERK, reviewed EMR data (avail), discussed with nursing, amended to note Attending Assessment/Plan: Patient seen and examined. Lying comfortably in bed and not in acute distress. No issues overnight. She remains in sinus rhythm on telemetry. She is on Dilaudid and reports adequate pain control and this regimen. Cardiology follow- up appreciated. Recommendations are to continue telemetry monitoring. The patient on BuSpar continue atrial fibrillation she may require long-term" therapy. She is scheduled to undergo vertebral augmentation surgery during the week.
--- NOTE | 2017-01-20 09:45 | PN- Student ---
TYJENNY LONG 01/20/17 0941: Subjective Subjective: Mrs. Branch says that she feels good today. She complains that she is still constipated and that the medications that she was given yesterday did not work. She is trying prunes today to help initiate a bowel movement. She also states that her back pain right now is a 3/10. She has a good appetite and denies any problems urinating. She stated that she feels well following her permanent pacemaker implantation on saturday. She denies any pain or soreness around the surgical site. she denies any chest pain or difficulty breathing. She also denies any headache or vision changes. Objective Objective: Vital Signs Date Time Temp Pulse Resp B/P B/P Pulse O2 O2 Flow FiO2 Mean Ox Delivery Rate 01/20 0933 140/60 01/20 0833 98.4 67 18 148/66 96 Room Air 01/20 0048 97.8 69 20 150/70 97 Room Air 01/19 2110 63 05/ 1812 64 122/60 01/19 1548 98.6 64 18 122/60 94 Room Air 01/19 1019 104/66 Intake & Output 01/20 1600 01/20 0800 05 0000 Intake Total 130 250 Output Total Balance 130 250 Intake, IV 10 10 Intake, Oral 120 240 Telemetry- NSR/ single pacing, some PVCs 60-63 Notes: -feeling well following pacemaker implantation saturday PE: General- alert and oriented x 3, comfortably sitting in bed, NAD HEENT- PEERLA, healing laceration present on left side of calvarium, membranes moist and pink Neck- supple, no thyromegaly or lymphadenopathy. trachea midline CV- S1 and S2 appreciated, regular rate and rhythm, no rubs heard Chest- vesicular sounds throughout all lung mcnally, good air flow. Pacemaker implanted in left infraclavicular area, pocket looks clean with no signs of irritation or infection. Abd- soft, slightly tender on right side around to back (described as aching with instances of sharp pain), bowel sounds heard, no distention Back- tender to palpation over the lumbar region of the back, pain greater on the right side that is aggravated by movement, pain 3/10 at rest. Ext- no edema present Skin- warm and well perfused, little dry but without lesions Results Results: Laboratory Tests 01/19/17 0730: Anion Gap 15, Estimated GFR 36 L, BUN/Creatinine Ratio 23.6, Magnesium 1.9, CBC w Diff NO MAN DIFF REQ, RBC 4.24, MCV 90.2, MCH 29.5, RDW 14.2, MPV 9.9, Gran % 60.6, Lymphocytes % 23.5, Monocytes % 11.7 H, Eosinophils % 3.8, Basophils % 0.4, Absolute Granulocytes 4.4, Absolute Lymphocytes 1.7, Absolute Monocytes 0.8 H, Absolute Eosinophils 0.3, Absolute Basophils 0, PUBS MCHC 32.7 L 01/18/17 0930: Anion Gap 13, Estimated GFR 27 L, BUN/Creatinine Ratio 21.1, PT 12.3, INR 1.17, CBC w Diff NO MAN DIFF REQ, RBC 4.41, MCV 90.2, MCH 29.7, RDW 13.8, MPV 10.4, Gran % 64.2, Lymphocytes % 21.6, Monocytes % 11.3 H, Eosinophils % 2.6, Basophils % 0.3, Absolute Granulocytes 6.0, Absolute Lymphocytes 2.0, Absolute Monocytes 1.1 H, Absolute Eosinophils 0.2, Absolute Basophils 0, PUBS MCHC 33.0 Assessment/Plan Assessment: Ms. Branch is 86 year old white female with past medical history of diabetes mellitus (diet controlled), asthma, COPD (no home oxygen), hypertension, hyperlipidemia, bradycardia, chronic kidney disease, chronic lower back pain, chronic left hydronephrosis, osteoarthritis, who presented to ED with chief complaint of mechanical fall at home resulting in a head laceration. Today Mrs. Branch is doing well. Her procedure site shows no sign of inflammation and is free of soreness or pain. Her only complaint has been constipation, she has not had a bowel movement since she has been here. She appears to have more energy since the last time i saw her. Her vitals are stable and her telemetry has shown NSR/single pacing with a HR in 60s with PVCs. She is awaiting her vertebroplasty on saturday. Current Medications Sig/Tricia Start time Last Medication Dose Route Stop Time Status Admin Acetaminophen 650 MG Q6P PRN 01/14 2215 AC 01/17 PO 2331 Atorvastatin Calcium 10 MG 1700 01/15 1700 AC 01/19 PO 1812 Budesonide/ 2 PUF BID 01/15 1103 AC 01/20 Formoterol Fumarate INH 0933 Cephalexin 500 MG BID 01/19 1000 AC 01/20 PO 0932 Cholecalciferol 1,000 IU DAILY 01/15 1103 AC 01/20 PO 0932 Fenofibrate 145 MG DAILY 01/15 1104 AC 01/20 PO 0932 Fluoxetine HCl 20 MG DAILY 01/15 1104 AC 01/20 PO 0932 Hydralazine HCl 50 MG TID 01/15 1105 AC 01/20 PO 0933 Hydrochlorothiazide 50 MG DAILY 01/15 1105 AC 01/20 PO 0933 Hydromorphone HCl 1 MG Q6PRN PRN 01/16 1600 AC 01/19 PO 1816 Hydromorphone HCl 0.5 MG Q4P PRN 01/14 2215 AC 01/20 IV 0037 Lorazepam 1 MG BID PRN 01/15 1115 AC 01/16 PO 1040 Magnesium Oxide 400 MG ONE ONE 01/19 1515 DC 01/19 PO 01/19 1516 1815 Multivitamins 1 TAB DAILY 01/15 1110 AC 01/20 Therapeutic PO 0932 Omeprazole 20 MG DAILY AC 01/15 1110 AC 01/20 PO 0527 Polyethylene Glycol 17 GM DAILY 01/19 1156 AC 01/20 PO 0932 Pregabalin 50 MG BID 01/15 1110 AC 01/20 PO 0932 Senna/Docusate Sodium 1 TAB BID 01/19 1156 AC 01/20 PO 0932 Tiotropium [place] 1 PUF DAILY 01/15 1110 AC 01/20 INH 0932 Plan: Vitals are stable and pacemaker pocket is free from signs of inflammation. She has not been able to have a bowel movement so plan to give miralax and senna to help relieve her constipation. She will go for vertebral augmentation on saturday. Pain management will continue as previously planned (Hydromorphone HCl 1 MG Q6PRN PO, and Hydromorphone HCl 0.5 MG Q4P PRN IV). Problem List: 1. Mechanical fall- head laceration healing nicely, orthostatics have been negative, patient is at fall risk and will see PT. 2. Spinal compression Fx- vertebroplasty schedule for saturday 3. atrial fibrillation- has been in NSR since pacemaker implantation, will monitor via telemetry and will follow up with cardio if she reverts back to afib. Will hold anticoagulation unless she converts back to afib, as per cardio. 4. 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 Acute Renal Failure and Chronic Kidney Disease- No lasix for now and no nephrogenic medications. BUN/[employer]oples[employer] Analyst- 33, Peoplesoft Analyst- 1.4 (baseline is 1.4) 6. Diabetes Mellitus- blood glucose monitoring TID w/ sliding scale novolog 7. COPD and Asthma- continue home medications and TRC 8. Hypertension- heart healthy diet and continue home medications Diet: heart healthy DVT prophylaxis: Alps for now, will continue SQ heparin Code status: full
--- NOTE | 2017-01-20 12:01 | PN- Cardiology ---
Subjective Subjective: The patient reports that she is feeling well. No chest pain. No palpitations. No diaphoresis. No nausea or vomiting. No lightheadedness or dizziness. Objective Vital Signs and I&Os Vital Signs Date Time Temp Pulse Resp B/P B/P Pulse O2 O2 Flow FiO2 Mean Ox Delivery Rate 01/20 0933 140/60 01/20 0833 98.4 67 18 148/66 96 Room Air 01/20 0048 97.8 69 20 150/70 97 Room Air 01/19 2110 63 / 1812 64 122/60 / 1548 98.6 64 18 122/60 94 Room Air Intake & Output 01/20 1600 01/20 0800 01/20 0000 01/19 1600 01/19 0800 01/19 0000 Intake Total 130 250 600 250 130 Output Total 450 400 Balance 130 250 150 -150 130 Intake, IV 10 10 10 10 Intake, Oral 120 240 600 240 120 Output, Urine 450 400 Patient 135 lb Weight Physical Exam: Gen: NAD HEENT: normal Lungs: clear to auscultation, normal resp. effort Heart: RRR, S1, S2, 2/6 systolic murmur Abdomen: Soft, nontender, no masses Extremities: No clubbing, cyanosis, or edema. Neuro: Alert and oriented x 3, cranial nerves intact Current Medications: Current Medications Sig/Tricia Start time Last Medication Dose Route Stop Time Status Admin Acetaminophen 650 MG Q6P PRN 01/14 2215 AC 01/17 PO 2331 Atorvastatin Calcium 10 MG 1700 / 1700 AC 01/19 PO 1812 Budesonide/ 2 PUF BID 01/15 1103 AC 01/20 Formoterol Fumarate INH 0933 Cephalexin 500 MG BID 01/19 1000 AC 01/20 PO 0932 Cholecalciferol 1,000 IU DAILY 01/15 1103 AC 01/20 PO 0932 Fenofibrate 145 MG DAILY 01/15 1104 AC 01/20 PO 0932 Fluoxetine HCl 20 MG DAILY 01/15 1104 AC 01/20 PO 0932 Hydralazine HCl 50 MG TID 01/15 1105 AC 01/20 PO 0933 Hydrochlorothiazide 50 MG DAILY 01/15 1105 AC 01/20 PO 0933 Hydromorphone HCl 1 MG Q6PRN PRN 01/16 1600 AC 01/20 PO 1123 Hydromorphone HCl 0.5 MG Q4P PRN 01/14 2215 AC 01/20 IV 0037 Lorazepam 1 MG BID PRN 01/15 1115 AC 01/16 PO 1040 Magnesium Oxide 400 MG ONE ONE 01/19 1515 DC 01/19 PO 01/19 1516 1815 Multivitamins 1 TAB DAILY 01/15 1110 AC 01/20 Therapeutic PO 0932 Omeprazole 20 MG DAILY AC 01/15 1110 AC 01/20 PO 0527 Polyethylene Glycol 17 GM DAILY 01/19 1156 AC 01/20 PO 0932 Pregabalin 50 MG BID 01/15 1110 AC 01/20 PO 0932 Senna/Docusate Sodium 1 TAB BID 01/19 1156 AC 01/20 PO 0932 Tiotropium [place] 1 PUF DAILY 01/15 111 AC 01/20 INH 0932 Results Last 48 Hrs of Labs/Mics: Laboratory Tests 01/19/17 0730: Anion Gap 15, Estimated GFR 36 L, BUN/Creatinine Ratio 23.6, Magnesium 1.9, CBC w Diff NO MAN DIFF REQ, RBC 4.24, MCV 90.2, MCH 29.5, RDW 14.2, MPV 9.9, Gran % 60.6, Lymphocytes % 23.5, Monocytes % 11.7 H, Eosinophils % 3.8, Basophils % 0.4, Absolute Granulocytes 4.4, Absolute Lymphocytes 1.7, Absolute Monocytes 0.8 H, Absolute Eosinophils 0.3, Absolute Basophils 0, PUBS MCHC 32.7 L Assessment/Plan Assessment/Plan Assessment: 1. Sick sinus syndrome status post permanent pacemaker 2. Paroxysmal atrial fibrillation, currently in sinus rhythm 3. Hypertension, controlled Plan: * Continue current cardiac medications. * Would hold off on anticoagulation unless further episodes of atrial fibrillation are documented. * Follow up with Dr. Esposito one week after discharge. Continue telemetry? Yes
[2017-01-20 16:44] VITALS: BP 133/68
[2017-01-21 00:33] VITALS: BP 152/62
--- NOTE | 2017-01-21 07:29 | PN- Housestaff ---
FELIPA WISE,TOBIAS 01/21/17 0728: Subjective Follow-up For: Bradycardia, status post pacemaker implant Compressed vertebral fractures Complaints: no complaints Tele-Events Since Last Visit: Sinus rhythm, single patient, heart rate ranging from 59-68. Subjective: Patient followed up and examined by me today. She is resting comfortably in her recliner, does not have any complaints other than intermittent back pain which is chronic, vitals have been stable, telemetry event noted as above, no overnight issues. She is eagerly waiting for her vertebral augmentation procedure tomorrow. Review of Systems Constitutional: Reports: see HPI. Objective Last 24 Hrs of Vital Signs/I&O Vital Signs Date Time Temp Pulse Resp B/P B/P Pulse O2 O2 Flow FiO2 Mean Ox Delivery Rate 01/21 1707 131/61 01/21 1600 98.0 60 20 131/61 95 Room Air 01/21 1015 144/66 01/21 0757 98.0 61 20 144/80 97 / 0033 98.9 65 20 152/62 97 01/20 2113 70 130/64 Intake & Output 01/21 1600 08 0800 05/08 0000 Intake Total 400 360 240 Output Total 600 120 Balance -200 360 120 Intake, Oral 400 360 240 Number 3 Bowel Movements Output, Urine 600 120 Physical Exam General Appearance: Alert, Oriented X3, Cooperative, No Acute Distress Other Physical Findings: Skin No Rashes, laceration of left temprol area, no active bleeding. no other trauma Anterior left side of the chest has a dressing over the pacemaker implantation site. No signs of infections. Skin Temp/Moisture Exam: Warm/Dry HEENT Trauma: left parietal region has scalp laceration that has five yanet, placed, eyes not scaly today, PERRLA, EOMI, Mucous Membr. moist/pink Neck Supple, No JVD Lymphatic no cervical lymphadenopathy Cardiovascular Regular Rate, Normal S1, Normal S2, systolic Murmur + Lungs Clear to Auscultation, Normal Air Movement Abdomen Normal Bowel Sounds, Soft, No Tenderness Neurological Normal Gait, grossly intact Back Tenderness over lower back L>R, spine tenderness at multiple levels of spine Extremities No Clubbing, No Cyanosis, No Edema, Normal Pulses Current Medications: Current Medications Sig/Tricia Start time Last Medication Dose Route Stop Time Status Admin Acetaminophen 650 MG Q6P PRN 01/14 2215 AC 01/21 PO 1334 Atorvastatin Calcium 10 MG 1700 01/15 1700 AC 01/21 PO 1707 Budesonide/ 2 PUF BID 01/15 1103 AC 01/21 Formoterol Fumarate INH 1017 Cholecalciferol 1,000 IU DAILY 01/15 1103 AC 01/21 PO 1015 Fenofibrate 145 MG DAILY 01/15 1104 AC 01/21 PO 1015 Fluoxetine HCl 20 MG DAILY 01/15 1104 AC 01/21 PO 1015 Furosemide 40 MG DAILY 01/22 1000 AC PO Hydralazine HCl 50 MG TID 01/15 1105 AC 01/21 PO 1707 Hydrochlorothiazide 50 MG DAILY 01/15 1105 DC 01/21 PO 1015 Hydromorphone HCl 1 MG Q6PRN PRN 01/16 1600 AC 01/21 PO 1016 Hydromorphone HCl 0.5 MG Q4P PRN 01/14 2215 AC 01/20 IV 0037 Lorazepam 1 MG BID PRN 01/15 1115 AC 01/16 PO 1040 Multivitamins 1 TAB DAILY 01/15 1110 AC 01/21 Therapeutic PO 1015 Omeprazole 20 MG DAILY AC 01/15 1110 AC 01/21 PO 0608 Polyethylene Glycol 17 GM DAILY 01/19 1156 AC 01/20 PO 0932 Pregabalin 50 MG BID 01/15 1110 AC 01/21 PO 1015 Senna/Docusate Sodium 1 TAB BID 01/19 1156 AC 01/20 PO 0932 Tiotropium [place] 1 PUF DAILY 01/15 1110 AC 01/21 INH 1015 Last 24 Hrs of Lab/Tylor Results Last 24 Hrs of Labs/Mics: Laboratory Tests 01/21/17 0714: Anion Gap 11, Estimated GFR 43 L, BUN/Creatinine Ratio 19.2, Magnesium 2.0 Assessment/Plan Assessment: Ms. Branch is 86 year old female with past medical history significant for diabetes mellitus, asthma, COPD not on home oxygen, hypertension, hyperlipidemia , bradycardia, chronic kidney disease, chronic lower back pain, chronic left hydronephrosis, osteoarthritis, who presented to ED with chief complaint of mechanical fall at home. Problem list #Mechanical fall with scalp lacertion, no fracture s/p yanet placement #History of bradycardia , s/p pacemaker placement on 01/18/17 #Hypertension #Diabetes mellitus #Asthma and COPD on inhalers #Acute on Chronic low back pain, thoracic and lumbar level #Acute kidney injury on chronic kidney disease -Admit to telemetry floor and managed following problems: #Acute on Chronic back pain -MRI lumbar of thoraco-lumbar spine shows T5 compression fracture with marrow edema, and multi level lumbar degenerative diseage with bulging of discs. -She is planned to get an MRI of thoracic and lumbar spine on 01/22/17, to get vertebral augmentation. -Will be kept nothing by mouth after midnight on Saturday for that. -target optimal pain control while watching her heart rate -No NSAIDs, blood thinners, antiplatelets before the procedure #History of junctional bradycardia, s/p pacemaker placement -S/p pacemaker placement on Saturday. Currently in sinus rhythm. Interrogation of pacemaker yesterday AM revealed that pacemaker is functioning normally. -Continue aspirin (held for pacemaker procedure) -Monitor on telemetry for atrial fibrillation. If further episodes are noted, consider anticoagulation. None so far. #Mechanical fall with scalp laceration, no fracture -Orthostatic BP was negtive -continue telemetry due to fall risk and bradycardia -PT evaluation -Patient still has 5 yanet in her scalp, appears healthy, needs reassessment tomorrow, and plan to take it off accordingly #HTN -avoiding any heart rate lowering drugs -Continue fenofibrate (for lyperlipidemia) -cardiology consultation appreciated #Acute kidney injury on chronic kidney disease -Cr improved to baseline, 1.2 today -Avoid nephrogenic medication including lasix for now #Diabetes mellitus -Accu-Chek 3 times a day -NovoLog sliding scale 3 times a day #Asthma and COPD on inhalers -TRC -Continue home inhalers #Constipation -Continue Miralax and Senokot S with parameters to hold for loose stools. Diet heart healthy DVT prophylaxis Consider resuming HSQ (discontinued for pacemaker placement) and ALPs Code full Problem List: 1. Fall 2. Scalp laceration 3. S/P placement of cardiac pacemaker 4. Compression fracture of body of thoracic vertebra 5. Diabetes mellitus 6. CKD (chronic kidney disease) 7. Chronic low back pain Pain Ratin Pain Location: back, when present Pain Goal: Pain 4 or less Pain Plan: home meds plus prn Tomorrow's Labs & Rationales: BEP to replete lytes if necessary, undergoing IR procedure. ANIKA CARRANZA MD 01/21/17 2224: Attending MD Review Statement Attending Statement Attending MD Statement: examined this patient, discuss w/resident/PA/SOFA COVER INSPECTOR, agreed w/resident/PA/SOFA COVER INSPECTOR, discussed with family, reviewed EMR data (avail), discussed with nursing, discussed with case mgmt, amended to note Attending Assessment/Plan: The patient was seen and discussed with house staff, family and case management. Continues with back pain. Pacer functioning well. Plan for vertebroplasty tomorrow as scheduled.
[2017-01-21 07:57] VITALS: BP 144/80
--- NOTE | 2017-01-21 08:36 | PN- Student ---
Subjective Subjective: This morning Mrs. Branch is feeling well. She does not report much pain right now only around a 3/10 that worsens when she moves. She stated that she did not need her latest pain medication. She states that she had a good bowel movement last night that was large and normal in consistency. She denies breathing problems, chest pain, abdominal pain, or changes in bathroom habits. She has had no headaches or vision problems. Overall she feels well. Objective Objective: Vital Signs Date Time Temp Pulse Resp B/P B/P Pulse O2 O2 Flow FiO2 Mean Ox Delivery Rate 01/21 1015 144/66 01/21 0757 98.0 61 20 144/80 97 01/21 0033 98.9 65 20 152/62 97 01/20 2113 70 130/64 01/20 1644 98.1 62 18 133/68 97 Room Air 01/20 1612 133/68 Intake & Output 01/21 1600 01/21 0800 01/21 0000 Intake Total 360 240 Output Total 120 Balance 360 120 Intake, Oral 360 240 Number 3 Bowel Movements Output, Urine 120 Telemetry: NSR single pacing 59-68 with no events PE: General- alert and oriented x 3, comfortably sitting in bed, NAD HEENT- PEERLA, healing laceration present on left side of calvarium, membranes moist and pink Neck- supple, no thyromegaly or lymphadenopathy. trachea midline CV- S1 and S2 appreciated, regular rate and rhythm, no rubs heard Chest- bibasilar crackles heard, good air flow. Pacemaker implanted in left infraclavicular area, pocket looks clean with no signs of irritation or infection. Abd- soft non-tender, bowel sounds heard, no distention Back- tender to palpation over the lumbar region of the back, pain greater on the right side that is aggravated by movement, pain 3/10 at rest. Ext- no edema present Skin- warm and well perfused, little dry but without lesions Results Results: Laboratory Tests 01/21/17 0714: Anion Gap 11, Estimated GFR 43 L, BUN/Creatinine Ratio 19.2, Magnesium 2.0 01/19/17 0730: Anion Gap 15, Estimated GFR 36 L, BUN/Creatinine Ratio 23.6, Magnesium 1.9, CBC w Diff NO MAN DIFF REQ, RBC 4.24, MCV 90.2, MCH 29.5, RDW 14.2, MPV 9.9, Gran % 60.6, Lymphocytes % 23.5, Monocytes % 11.7 H, Eosinophils % 3.8, Basophils % 0.4, Absolute Granulocytes 4.4, Absolute Lymphocytes 1.7, Absolute Monocytes 0.8 H, Absolute Eosinophils 0.3, Absolute Basophils 0, PUBS MCHC 32.7 L Assessment/Plan Assessment: Mrs. Branch is comfortably relaxing in her room. She is awaiting her vertebroplasty that is scheduled for tomorrow. Her vitals are stable, her scalp laceration is healing well, and she has no problems with her pacemaker. The pocket is clean and clear of infection, and she reports no soreness. She has slight crackles of bilateral lung bases but does not complain of any difficulty breathing that is out of the norm. Current Medications Sig/Tricia Start time Last Medication Dose Route Stop Time Status Admin Acetaminophen 650 MG Q6P PRN 01/14 2215 AC 01/21 PO 1334 Atorvastatin Calcium 10 MG 1700 01/15 1700 AC 01/20 PO 1610 Budesonide/ 2 PUF BID 01/15 1103 AC 01/21 Formoterol Fumarate INH 1017 Cholecalciferol 1,000 IU DAILY 01/15 1103 AC 01/21 PO 1015 Fenofibrate 145 MG DAILY 01/15 1104 AC 01/21 PO 1015 Fluoxetine HCl 20 MG DAILY 01/15 1104 AC 01/21 PO 1015 Furosemide 40 MG DAILY 01/22 1000 AC PO Hydralazine HCl 50 MG TID 01/15 1105 AC 01/21 PO 1015 Hydrochlorothiazide 50 MG DAILY 01/15 1105 DC 01/21 PO 1015 Hydromorphone HCl 1 MG Q6PRN PRN 01/16 1600 AC 01/21 PO 1016 Hydromorphone HCl 0.5 MG Q4P PRN 01/14 2215 AC 01/20 IV 0037 Lorazepam 1 MG BID PRN 01/15 1115 AC 01/16 PO 1040 Multivitamins 1 TAB DAILY 01/15 1110 AC 01/21 Therapeutic PO 1015 Omeprazole 20 MG DAILY AC 01/15 1110 AC 01/21 PO 0608 Polyethylene Glycol 17 GM DAILY 01/19 1156 AC 01/20 PO 0932 Pregabalin 50 MG BID 01/15 1110 AC 05/08 PO 1015 Senna/Docusate Sodium 1 TAB BID 01/19 1156 AC 01/20 PO 0932 Tiotropium [place] 1 PUF DAILY 01/15 1110 AC 01/21 INH 1015 Plan: Patient will be NPO at midnight for her procedure tomorrow. Lasix will be started since her Creatinine is 1.2, as per cardio. Problem List: 1. Mechanical fall- head laceration healing nicely, orthostatics have been negative, patient is at fall risk and will see PT. 2. Spinal compression Fx- vertebroplasty schedule for saturday. NPO after midnight 3. atrial fibrillation- has been in NSR since pacemaker implantation, will monitor via telemetry and will follow up with cardio if she reverts back to afib. Will hold anticoagulation unless she converts back to afib, as per cardio. 4. 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 Acute Renal Failure and Chronic Kidney Disease- discontinue HCTZ today and begin 40 mg per day lasix PO. BUN/Windows Technical Specialist- 33, Windows Technical Specialist- 1.2 (baseline is 1.4) 6. Diabetes Mellitus- blood glucose monitoring TID w/ sliding scale novolog 7. COPD and Asthma- continue home medications and TRC 8. Hypertension- heart healthy diet and continue home medications Diet: heart healthy DVT prophylaxis: Alps for now, will continue SQ heparin Code status: full Diet: heart healthy DVT prophylaxis: Alps for now, will continue SQ heparin Code status: full
--- NOTE | 2017-01-21 10:52 | PN- Cardiology ---
Subjective Subjective: * Patient reports mild shortness of breath. No chest discomfort or lightheadedness. * atrial paced rhythm * creatinine is 1.2 Objective Vital Signs and I&Os Vital Signs Date Time Temp Pulse Resp B/P B/P Pulse O2 O2 Flow FiO2 Mean Ox Delivery Rate 01/21 1015 144/66 01/21 0757 98.0 61 20 144/80 97 01/21 0033 98.9 65 20 152/62 97 01/20 2113 70 130/64 01/20 1644 98.1 62 18 133/68 97 Room Air 01/20 1612 133/68 Intake & Output 01/21 1600 01/21 0800 01/21 0000 01/20 1600 01/20 0800 01/20 0000 Intake Total 360 240 400 130 250 Output Total 120 700 Balance 360 120 -300 130 250 Intake, IV 10 10 Intake, Oral 360 240 400 120 240 Number 3 Bowel Movements Output, Urine 120 700 Patient 135 lb Weight Physical Exam: General: WD/ overweight female in NAD; alert and oriented x 3 Neck: no JVD, no carotid bruit Chest: pacer site is WNL Heart: regular rate and rhythm with 2/6 systolic murmur Lungs: crackles at bases bilaterally Extremities: no edema Assessment/Plan Assessment/Plan * This patient is doing better following pacemaker placement with improvement in her renal function likely due to resolution of a pre-renal state. * Patient reports shortness of breath and now demonstrates bilateral lung crackles. Discontinue HCTZ and begin Lasix 40mg daily. Continue telemetry? Yes
[2017-01-21 16:00] VITALS: BP 131/61
--- NOTE | 2017-01-21 21:04 | Transfer of Care Summary ---
Hospital Course Course Hospital Course: Ms. Branch is 86 year old female with past medical history significant for diabetes mellitus, asthma, COPD not on home oxygen, hypertension, hyperlipidemia , bradycardia, chronic kidney disease, chronic lower back pain, chronic left hydronephrosis, osteoarthritis, who presented to ED with chief complaint of mechanical fall at home. Problem list #Mechanical fall with scalp lacertion, no fracture s/p yanet placement #History of bradycardia , s/p pacemaker placement on 01/18/17 #Hypertension #Diabetes mellitus #Asthma and COPD on inhalers #Acute on Chronic low back pain, thoracic and lumbar level #Acute kidney injury on chronic kidney disease -Admitted and being managed to telemetry floor for the following issues: #Acute on Chronic back pain -MRI lumbar of thoraco-lumbar spine shows T5 compression fracture with marrow edema, and multi level lumbar degenerative diseage with bulging of discs. -She is planned to get an MRI of thoracic and lumbar spine on 01/22/17, to get vertebral augmentation. -Will be kept nothing by mouth after midnight on Saturday for that. -target optimal pain control while watching her heart rate -No NSAIDs, blood thinners, antiplatelets before the procedure #History of junctional bradycardia, s/p pacemaker placement -S/p pacemaker placement on Saturday. Currently in sinus rhythm. Interrogation of pacemaker yesterday AM revealed that pacemaker is functioning normally. -Continue aspirin (held for pacemaker procedure) -Monitor on telemetry for atrial fibrillation. If further episodes are noted, consider anticoagulation. None so far. #Mechanical fall with scalp laceration, no fracture -Orthostatic BP was negtive -continue telemetry due to fall risk and bradycardia -PT evaluation -Patient still has 5 yanet in her scalp, appears healthy, needs reassessment tomorrow, and plan to take it off accordingly #HTN -avoiding any heart rate lowering drugs -Continue fenofibrate (for lyperlipidemia) -cardiology consultation appreciated #Acute kidney injury on chronic kidney disease -Cr improved to baseline, 1.2 today -Avoid nephrogenic medication including lasix for now #Diabetes mellitus -Accu-Chek 3 times a day -NovoLog sliding scale 3 times a day #Asthma and COPD on inhalers -TRC -Continue home inhalers #Constipation -Continue Miralax and Senokot S with parameters to hold for loose stools. Diet heart healthy DVT prophylaxis Consider resuming HSQ (discontinued for pacemaker placement) and ALPs Code full Significant Procedures: T5 vertebral body augmentation planned for tomorrow (01/22/17). Assessment/Plan: as mentioned above. TO DO LIST: # Back pain: Geting thoracic level 5 (T5) vertebral augmentation tomorrow. She is NPO from [place]. Resume diet, ASA, and DVT ppx after the procedure. #History of bradycardia from junctional extopy, atrial fibriallation with conduction defect leading to bradycardic a fib. S/p pacemaker placement on Saturday, which has been interrogated already, and is fully functional. #Mechanical fall with scalp laceration: Patient still has 5 yanet in her scalp , appears healthy today, needs reassessment tomorrow, and plan to take it off accordingly.
[2017-01-21 22:00] VITALS: BP 148/80
--- NOTE | 2017-01-22 05:54 | PN- Housestaff ---
See Addendum Subjective Follow-up For: Bradycardia, status post pacemaker implant Compressed vertebral fractures Tele-Events Since Last Visit: Single pacing, HR 59-75 Subjective: Patient seen and examined at bedside. Resting comfortably in bed with no new complaints. Back pain is worse than yesterday at 6 out of 10. No signs of infection around the pacemaker implantation site. Dressings changed. Denies any chest pain, dyspnea, palpitations, lightheadedness, dizziness, abdominal pain, n /v/c/d. No acute events reported overnight. Review of Systems Constitutional: Reports: see HPI. Objective Last 24 Hrs of Vital Signs/I&O Vital Signs Date Time Temp Pulse Resp B/P B/P Pulse O2 O2 Flow FiO2 Mean Ox Delivery Rate 01/21 2202 68 160/80 01/21 2200 98.9 68 20 148/80 96 Room Air 01/21 1707 131/61 01/21 1600 98.0 60 20 131/61 95 Room Air 01/21 1015 144/66 01/21 0757 98.0 61 20 144/80 97 Intake & Output 01/22 0800 01/22 0000 01/21 1600 Intake Total 100 400 Output Total 600 Balance 100 -200 Intake, Oral 100 400 Output, Urine 600 Physical Exam General Appearance: Alert, Cooperative, No Acute Distress Other Physical Findings: Skin No Rashes, laceration of left temprol area, no active bleeding. no other trauma Anterior left side of the chest has a dressing over the pacemaker implantation site. No signs of infections. Skin Temp/Moisture Exam: Warm/Dry HEENT Trauma: left parietal region has scalp laceration that has five yanet, placed, eyes not scaly today, PERRLA, EOMI, Mucous Membr. moist/pink Neck Supple, No JVD Lymphatic no cervical lymphadenopathy Cardiovascular Regular Rate, Normal S1, Normal S2, systolic Murmur + Lungs Clear to Auscultation, Normal Air Movement Abdomen Normal Bowel Sounds, Soft, No Tenderness Neurological Normal Gait, grossly intact Back Tenderness over lower back L>R, spine tenderness at multiple levels of spine Extremities No Clubbing, No Cyanosis, No Edema, Normal Pulses Current Medications: Current Medications Sig/Tricia Start time Last Medication Dose Route Stop Time Status Admin Acetaminophen 650 MG .STK-MED ONE 01/21 1335 DC PO 01/21 133 Acetaminophen 650 MG Q6P PRN 01/14 2215 AC 01/21 PO 1334 Atorvastatin Calcium 10 MG 1700 01/15 1700 AC 01/21 PO 1707 Budesonide/ 2 PUF BID 01/15 1103 AC 01/21 Formoterol Fumarate INH 2204 Cholecalciferol 1,000 IU DAILY 01/15 1103 AC 05/ PO 1015 Fenofibrate 145 MG DAILY 01/15 1104 AC 01/21 PO 1015 Fluoxetine HCl 20 MG DAILY 01/15 1104 AC 01/21 PO 1015 Furosemide 40 MG DAILY 01/22 1000 AC PO Hydralazine HCl 50 MG TID 01/15 1105 AC 01/21 PO 2202 Hydrochlorothiazide 50 MG DAILY 01/15 1105 DC 01/21 PO 1015 Hydromorphone HCl 1 MG Q6PRN PRN 01/16 1600 AC 01/21 PO 1016 Hydromorphone HCl 0.5 MG Q4P PRN 01/14 2215 DC 01/21 IV 2020 Lorazepam 1 MG BID PRN 01/15 1115 AC 01/16 PO 1040 Multivitamins 1 TAB DAILY 01/15 1110 AC 01/21 Therapeutic PO 1015 Omeprazole 20 MG DAILY AC 01/15 1110 AC 01/21 PO 0608 Polyethylene Glycol 17 GM DAILY 01/19 1156 AC 01/20 PO 0932 Pregabalin 50 MG BID 01/15 1110 AC 01/21 PO 2202 Senna/Docusate Sodium 1 TAB BID 01/19 1156 AC 05 PO 0932 Tiotropium [place] 1 PUF DAILY 01/15 1110 AC 01/21 INH 1015 Assessment/Plan Assessment: Ms. Branch is 86 year old female with past medical history significant for diabetes mellitus, asthma, COPD not on home oxygen, hypertension, hyperlipidemia , bradycardia, chronic kidney disease, chronic lower back pain, chronic left hydronephrosis, osteoarthritis, who presented to ED with chief complaint of mechanical fall at home. Problem list #Mechanical fall with scalp lacertion, no fracture s/p yanet placement #History of bradycardia , s/p pacemaker placement on 01/18/17 #Hypertension #Diabetes mellitus #Asthma and COPD on inhalers #Acute on Chronic low back pain, thoracic and lumbar level #Acute kidney injury on chronic kidney disease -Admit to telemetry floor and managed following problems: #Acute on Chronic back pain MRI lumbar of thoraco-lumbar spine shows T5 compression fracture with marrow edema, and multi level lumbar degenerative diseage with bulging of discs. * Awaiting vertebral augmentation. * Resume diet s/p procedure * Adequate pain control #History of junctional bradycardia, s/p pacemaker placement -S/p pacemaker placement on Saturday. Currently in sinus rhythm. Interrogation of pacemaker yesterday AM revealed that pacemaker is functioning normally. * Continue aspirin (held for pacemaker procedure) * Discontinue tele monitoring as per cardio rec #Mechanical fall with scalp laceration, no fracture * Orthostatic BP was negtive * Discontinue tele monitoring as per cardio rec * PT evaluation * Patient still has 5 yanet in her scalp, appears healthy, needs reassessment tomorrow, and plan to take it off accordingly #HTN * avoiding any heart rate lowering drugs * Continue fenofibrate (for lyperlipidemia) * cardiology consultation appreciated #Acute kidney injury on chronic kidney disease * Check BEP daily, trend Cr Cr improved to baseline, 1.2 today * Avoid nephrogenic medication including lasix for now #Diabetes mellitus * Accu-Chek 3 times a day * NovoLog sliding scale 3 times a day #Asthma and COPD on inhalers * TRC * Continue home inhalers #Constipation * Continue Miralax and Senokot S with parameters to hold for loose stools. Diet heart healthy DVT prophylaxis - ALPs Code full Problem List: 1. Gait instability 2. Compression fracture of thoracic spine, non-traumatic 3. Chronic low back pain 4. Scalp laceration 5. Atrial fibrillation 6. CKD (chronic kidney disease) 7. Diabetes mellitus 8. Junctional bradycardia Pain Ratin Pain Location: Back Pain Goal: Pain 4 or less Pain Plan: Moderate pathway Tomorrow's Labs & Rationales: BEP to replete lytes if necessary
--- NOTE | 2017-01-22 07:37 | PN- Student ---
JENNY CRAWFORD 01/22/17 0735: Subjective Subjective: I examined Mrs. Branch this morning while she was laying comfortably in her bed. She states that her pain is a 6/10 today but is well controlled by her medication. She does not believe that her breathing is any worse than yesterday. She denies any abdominal pain, chest pain, palpitations, headaches, vision disturbances, urinary difficulties, or bowel problems. Objective Objective: Vital Signs Date Time Temp Pulse Resp B/P B/P Pulse O2 O2 Flow FiO2 Mean Ox Delivery Rate 01/21 2202 68 160/80 01/21 2200 98.9 68 20 148/80 96 Room Air 01/21 1707 131/61 01/21 1600 98.0 60 20 131/61 95 Room Air 01/21 1015 144/66 01/21 0757 98.0 61 20 144/80 97 Intake & Output 01/22 0800 01/22 0000 01/21 1600 Intake Total 100 400 Output Total 600 Balance 100 -200 Intake, Oral 100 400 Output, Urine 600 Telemetry: single pacing 59-60 with no events Notes: -started on 40mg lasix PO daily yesterday, stopped HCTZ -vertebroplasty today, will resume diet, ASA, and DVT prophylaxis following procedure -pacemaker site examined and steristrips reapplied PE: General- alert and oriented x 3, comfortably sitting in bed, NAD HEENT- PEERLA, healing laceration present on left side of calvarium, membranes moist and pink Neck- supple, no thyromegaly or lymphadenopathy. trachea midline CV- S1 and S2 appreciated, regular rate and rhythm, no rubs heard Chest- slight bibasilar crackles heard, good air flow. Pacemaker implanted in left infraclavicular area, pocket looks clean with no signs of irritation or infection. Abd- soft non-tender, bowel sounds heard, no distention Back- tender to palpation over the lumbar region of the back, pain greater on the right side that is aggravated by movement, pain 6/10. Ext- no edema present Skin- warm and well perfused, little dry but without lesions Results Results: Laboratory Tests 01/22/17 0724: Anion Gap 11, Estimated GFR 39 L, BUN/Creatinine Ratio 25.4 H 01/21/17 0714: Anion Gap 11, Estimated GFR 43 L, BUN/Creatinine Ratio 19.2, Magnesium 2.0 Assessment/Plan Assessment: Mrs. Branch has not had any significant change from yesterday. Her pacemaker site was clean of erythema or any signs of infection, new steristrips were placed. Incision is healing nicely with no bleeding noted. Some bibasilar crackles heard on auscultation but she is saturating at 96% on room air with normal respiratory effort. Current Medications Sig/Tricia Start time Last Medication Dose Route Stop Time Status Admin Acetaminophen 650 MG .STK-MED ONE 01/21 1335 DC PO 01/21 1336 Acetaminophen 650 MG Q6P PRN 01/14 2215 AC 01/21 PO 1334 Atorvastatin Calcium 10 MG 1700 01/15 1700 AC 01/21 PO 1707 Budesonide/ 2 PUF BID 01/15 1103 AC 01/21 Formoterol Fumarate INH 2204 Cholecalciferol 1,000 IU DAILY 01/15 1103 AC 01/21 PO 1015 Fenofibrate 145 MG DAILY 01/15 1104 AC 01/21 PO 1015 Fluoxetine HCl 20 MG DAILY 01/15 1104 AC 01/21 PO 1015 Furosemide 40 MG DAILY 01/22 1000 AC PO Hydralazine HCl 50 MG TID 01/15 1105 AC 01/21 PO 2202 Hydrochlorothiazide 50 MG DAILY 01/15 1105 DC 01/21 PO 1015 Hydromorphone HCl 1 MG Q6PRN PRN 01/16 1600 AC 05/08 PO 1016 Hydromorphone HCl 0.5 MG Q4P PRN / 2215 DC 01/21 IV 2020 Lorazepam 1 MG BID PRN 01/15 1115 AC 01/16 PO 1040 Multivitamins 1 TAB DAILY 01/15 1110 AC 01/21 Therapeutic PO 1015 Omeprazole 20 MG DAILY AC 01/15 1110 AC / PO 0608 Polyethylene Glycol 17 GM DAILY 01/19 1156 AC 01/20 PO 0932 Pregabalin 50 MG BID 01/15 1110 AC 01/21 PO 2202 Senna/Docusate Sodium 1 TAB BID 01/19 1156 AC / PO 0932 Tiotropium [place] 1 PUF DAILY 01/15 1110 AC 01/21 INH 1015 Plan: Patient is doing well, she is awaiting her vertebroplasty this morning and has been NPO since midnight. Her pain is controlled well with her current medications but IV medications will need to be changed to PO prior to discharge. Patient will need rehabilitation on discharge as well due to deconditioning. Continue to monitor renal function since she is on Lasix. Possible discharge tomorrow of to rehab facility. Problem List: 1. Mechanical fall- head laceration healing nicely, orthostatics have been negative, patient is at fall risk and will see PT. continue to monitor wound. 2. Spinal compression Fx- vertebroplasty schedule for saturday. 3. atrial fibrillation- has been in NSR since pacemaker implantation, will monitor via telemetry and will follow up with cardio if she reverts back to afib. Will hold anticoagulation unless she converts back to afib, as per cardio. 4. 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 Acute Renal Failure and Chronic Kidney Disease- currently on 40 mg per day lasix PO. 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 Diabetes Mellitus- blood glucose monitoring TID w/ sliding scale novolog 7. COPD and Asthma- continue home medications and TRC 8. Hypertension- heart healthy diet and continue home medications Diet: heart healthy DVT prophylaxis: Alps for now, will continue SQ heparin following vertebroplasty Code status: full
[2017-01-22 08:00] VITALS: BP 154/78
--- NOTE | 2017-01-22 09:36 | Discharge Summary ---
See Addendum Visit Information Visit Dates Admission Date: 01/15/17 Discharge Date: 01/23/17 Hospital Course Course Attending Physician: ANIKA CARRANZA MD Primary Care Physician: TYREL HARRIS APRN [facility] Course: Ms. Branch is 86 year old female with past medical history significant for diabetes mellitus, asthma, COPD not on home oxygen, hypertension, hyperlipidemia , bradycardia, chronic kidney disease, chronic lower back pain, chronic left hydronephrosis, osteoarthritis presented to ED with chief complaint of mechanical fall at home. On admission Vitals 96.3, pulse 74, blood pressure 120/74, respiratory rate 20 with saturation 95% air Physical Exam General Appearance Alert, Oriented X3, Cooperative, No Acute Distress Skin No Rashes, laceration of left temprol area, no active bleeding. no other trauma Skin Temp/Moisture Exam: Warm/Dry HEENT PERRLA, EOMI, Mucous Membr. moist/pink Neck Supple, No JVD Lymphatic no cervical lymphadenopathy Cardiovascular Regular Rate, Normal S1, Normal S2, No Murmurs Lungs Clear to Auscultation, Normal Air Movement Abdomen Normal Bowel Sounds, Soft, No Tenderness Neurological Normal Gait, Normal Speech, Strength at 5/5 X4 Ext, Normal Tone, Sensation Intact, Cranial Nerves 3-12 NL, Reflexes 2+ Extremities No Clubbing, No Cyanosis, No Edema, Normal Pulses Labs H&H 14.2/43.7, the WBC 11.5, platelet 345, BUN/creatinine 55/1.7, G if are 28, troponin 0.03, liver function test within normal Image CT head and cervical spine IMPRESSION: Head: There is a laceration of the left parietal scalp. The underlying calvarium is intact. No acute intracranial hemorrhage. Chronic small vessel ischemic changes are visualized within the periventricular white matter. No evidence of acute territorial infarct. Cervical spine: No acute cervical spinal fracture. There are central protrusions that cause at least mild canal stenosis at the levels of C2-C3, C3-C4, C4-C5, and C5-C6. If there is a clinical suspicion for compressive myelopathy then a dedicated cervical spine MRI should be obtained for better anatomic characterization of the cord. CT chest, abdomen and pelvis without IV contrast IMPRESSION: 1. Limited exam secondary to lack of intravenous contrast. No significant anterior mediastinal hematoma. Limited evaluation for acute thoracic aortic injury given lack of intravenous contrast. 2. Limited evaluation for solid organ and hollow visceral injury given lack of intravenous contrast. No intraperitoneal or retroperitoneal hematoma. 3. Persistent significant dilatation of the left renal pelvis which may be secondary to underlying chronic left UPJ obstruction. 4. Scattered colonic diverticulosis, without secondary signs of acute diverticulitis. 5. No acute osseous abnormality. Scoliosis of the thoracolumbar spine. She was admitted to telemetry floor and treated for these medical conditions: #Mechanical fall with scalp lacertion, no fracture s/p 5 yanet placement/Acute on Chronic back pain Orthostatic BP was negtive. MRI lumbar of thoraco-lumbar spine shows T5 compression fracture with marrow edema, and multi level lumbar degenerative diseage with bulging of discs.she underwent vertebral augmentation by IR during hospitalization. Pain was controlled with narcotics. PT evaluation recommended STR. #History of junctional bradycardia/runs of possible afib, s/p pacemaker placement pacemaker was in the hospitalization by Dr. Esposito. We continued aspirin. No other episodes of atrial fibrillation was observed. #Acute kidney injury on chronic kidney disease -Cr improved to baseline during the hospitalization.we Avoided nephrogenic medication including lasix for now Allergies: Coded Allergies: NO KNOWN ALLERGIES (12/24/12) Disposition Summary Disposition Principal Diagnosis: bradycardia s/p pacemaker vertebral augmentaion Additional Diagnosis: HTN anxiety/ depression Discharge Disposition: SNF Discharge Instructions General Discharge Information Code Status: Full Code Patient's Diet: heart healthy Patient's Activity: as tolerated Follow-Up Instructions/Appts: -Please follow-up with your primary care provider within 7 days after discharge. -Please follow-up with your dam tender 7 days after discharge. -We have made changes to your home medications, please read the instructions carefully. -Please come back to the hospital if your symptoms got worse. Medications at Discharge Discharge Medications: Stop taking the following medications: Hydralazine HCl (Hydralazine HCl) 50 MG TABLET ORAL THREE TIMES DAILY Qty = 270 Hydrochlorothiazide (Hydrochlorothiazide) 50 MG TABLET ORAL DAILY Continue taking these medications: Budesonide/Formoterol Fumarate (Symbicort 80-4.5 Mcg Inhaler) 80 MCG-4.5 MCG/ ACTUATION HFA.AER.AD 2 Puff Inhale through mouth TWICE DAILY Qty = 30 Comments: Last Taken: 01/23/17 Time: 10:30 AM Fluoxetine HCl (Fluoxetine HCl) 20 MG CAPSULE 1 Capsule ORAL DAILY Qty = 90 Comments: Last Taken: 01/23/17 Time: 10:30 AM Lovastatin (Lovastatin) 40 MG TABLET 1 Tablet ORAL DAILY Qty = 90 Instructions: with food Comments: Last Taken: 01/22/17 Time: 6 PM Cholecalciferol (Vitamin D3) (Vitamin D) 1,000 UNIT TABLET 1 Tablet ORAL DAILY Comments: Last Taken: Time: 10:30 AM Fenofibrate Nanocrystallized (Fenofibrate) 145 MG TABLET 1 Tablet ORAL DAILY Comments: Last Taken: 01/23/17 Time: 10:30 AM Aspirin (Aspirin*) 81 MG TAB.CHEW 1 Tablet ORAL DAILY Comments: NOT GIVEN IN THE HOSPITAL Aclidinium [place] (Tudorza Pressair) 400 MCG/ACTUATION AER.POW.BA 1 PUFF Inhale through mouth TWICE DAILY Comments: NOT GIVEN IN THE HOSPITAL Albuterol Sulfate (Albuterol Sulfate) 2.5 MG/3 ML (0.083 %) VIAL.NEB 1 Vial Inhale Solution Q6H as needed for WHEEZING Comments: NOT GIVEN IN THE HOSPITAL Hydromorphone HCl (Dilaudid) 2 MG TABLET 1 Tablet ORAL Q4H as needed for PAIN Comments: Last Taken: 01/23/17 Time: 6 AM Hydroxyzine HCl (Hydroxyzine HCl) 25 MG TABLET 1 Tablet ORAL THREE TIMES DAILY as needed for ITCHING Comments: NOT GIVEN IN THE HOSPITAL Lidocaine (Lidoderm) 5 % ADH..PATCH 1 Patch On the skin DAILY Instructions: may wear up to 12 hours Comments: NOT GIVEN IN THE HOSPITAL Lorazepam (Lorazepam) 1 MG TABLET 1 Tablet ORAL TWICE DAILY as needed for ANXIETY Comments: NOT GIVEN IN THE HOSPITAL Multivitamin (Multi-Day Vitamins) 1 EACH TABLET 1 Tablet ORAL DAILY Comments: Last Taken: 01/23/17 Time: 10:30 AM Omeprazole (Omeprazole) 20 MG TABLET.DR 1 Tablet ORAL DAILY Comments: Last Taken: 01/23/17 Time: 6 AM Pregabalin (Lyrica) 50 MG CAPSULE 1 Capsule ORAL TWICE DAILY Tiotropium [place] (Spiriva) 18 MCG CAP.W.DEV 1 Capsule Inhale through mouth DAILY Comments: Last Taken: 01/23/17 Time: 10:30 AM Start taking the following new medications: Hydralazine HCl (Hydralazine HCl) 50 MG TABLET 100 Milligram ORAL THREE TIMES DAILY Days = 20 No Refills Comments: Last Taken: 01/23/17 Time: 10:30 AM Furosemide (Lasix) 40 MG TABLET 40 Milligram ORAL DAILY Days = 29 No Refills Comments: Last Taken: 01/23/17 Time: 10:30 AM Copies To: TYREL HARRIS APRN; S[employer]NEY [employer] PhD,EM[employer]
--- NOTE | 2017-01-22 14:23 | NUR ---
Patient was not seen due to being off the floor for testing.
[2017-01-22 15:49] VITALS: BP 160/70
--- NOTE | 2017-01-22 16:42 | PN- Cardiology ---
Subjective Subjective: * Doing well following vertebroplasty. * 100% paced rhythm with good capture. Objective Vital Signs and I&Os Vital Signs Date Time Temp Pulse Resp B/P B/P Pulse O2 O2 Flow FiO2 Mean Ox Delivery Rate 01/22 1549 98.3 61 18 160/70 97 Room Air 01/22 0849 98.9 68 20 160/80 01/22 0800 98.5 60 18 154/78 96 Room Air 01/21 2202 68 160/80 01/21 2200 98.9 68 20 148/80 96 Room Air 01/21 1707 131/61 Intake & Output 01/22 1600 01/22 0800 01/22 0000 01/21 1600 01/21 0800 05 0000 Intake Total 120 100 400 360 240 Output Total 600 120 Balance 120 100 -200 360 120 Intake, Oral 120 100 400 360 240 Number 3 Bowel Movements Output, Urine 600 120 Physical Exam: General: WD/ overweight female in NAD; alert and oriented x 3 Neck: no JVD, no carotid bruit Chest: pacer site is WNL Heart: regular rate and rhythm with 2/6 systolic murmur Lungs: crackles at bases bilaterally Extremities: no edema Assessment/Plan Assessment/Plan * This patient is doing better following pacemaker placement with improvement in her renal function likely due to resolution of a pre-renal state. * BP is elevated. Increase hydralazine to 100mg BID. * Patient is breathing a bit better on Lasix. Continue this medication at 40mg daily. Okay for discharge from a cardiac standpoint with follow up recommended in one week in the office. Continue telemetry? No
--- NOTE | 2017-01-22 17:48 | INTERVENTIONAL RADIOLOGY RPT ---
PROCEDURE: T5 KYPHOPLASTY under fluoroscopic guidance CLINICAL INFORMATION: 86-year-old woman status post fall with persistent mid thoracic back pain. Subsequent studies confirmed the presence of an acute T5 vertebral compression fracture. SUMAC TANNER: Dr. Gilson Portillo COMPARISON: CT of the chest dated 01/14/2017, MRI of the thoracic and lumbar spine dated 01/16/2017. TECHNIQUE/FINDINGS: Access: Bilateral transpedicular, T5 Informed Consent: Informed consent was obtained from the patient prior to the procedure. During this process, the procedure and potential alternatives was explained, along with the intended outcome and benefits. The risks of the procedure, as well as the risk of not doing the procedure, were discussed. The patient was given the opportunity to ask questions regarding the procedure and appeared competent to make medical decisions. A signed consent form which documents this discussion was placed in the medical record. The patient's recent imaging studies were reviewed. Description: The patient was brought to the interventional radiology suite and a final timeout procedure was performed. The patient was placed on the special procedures table in the prone position and IV deep sedation was induced by the anesthesiology department. The pedicles of T5 were localized fluoroscopically and marked on the skin. The back in the region of the mid thoracic spine was sterilely prepped and draped. Local anesthesia was then performed with infiltration of the skin and deep tissues tissues using 1% lidocaine. Small nicks were then made in the skin using a #11 scalpel blade. Express osteo introducers were advanced transpedicularly bilaterally into the posterior third of the vertebral body. A small hand drill was then used to core the trabecular bone in the vertebral body creating a cortical window. 20 mm length inflatable bone tamps were then inserted through the introducers and advanced into the vertebral body near the anterior cortex. The bones tamps were then slowly inflated to a maximum pressure of approximately 200 PSI and a volume of 2.5 mL each. There was excellent reduction of the compression fracture with approximately 5 mm elevation of the superior endplate of the T5 vertebral body. The bone tamps were then deflated and removed. Kyphon HV-R bone cement filler was prepared. Under fluoroscopic guidance, internal fixation was achieved through slow, low pressure injection of the barium opacified bony filler directly into the medullary cavity through filling tubes using a total of 4.4 mL of cement. There was excellent filling of the vertebral body without evidence of any extension of cement into the paravertebral soft tissues, spinal canal, or neuroforamina. The introduction channels were then removed. The puncture sites were cleansed and sterilely sealed using Dermabond. After approximately 15 minutes, patient was turned into the supine position. When the patient awoke, she was stable and neurologically intact. CONCLUSION: Kyphoplasty performed on an acute T5 osteoporotic wedge compression fracture under biplane fluoroscopic guidance via a bilateral transpedicular approach with excellent fracture reduction and stabilization. No complications were encountered.
[2017-01-22] MEDS ORDERED: LASIX40 M1 PO (20:07)
[2017-01-22] MEDS ORDERED: HYDRALAZINE HCL50 M1 PO (20:07)
--- NOTE | 2017-01-22 20:09 | Patient Discharge Instructions ---
Discharge Instructions General Discharge Information You were seen/treated for: bradycardia back pain You had these procedures: vertebral augmentation Diet Recommended Diet: Heart Healthy Acute Coronary Syndrome Inclusion Criteria At DC or during hospital stay patient has or had the following: ACS DIAGNOSIS No Discharge Core Measures Meds if any: Prescribed or Continued at Discharge Meds if any: NOT Prescribed or Continued at Discharge Congestive Heart Failure Inclusion Criteria At DC or during hospital stay patient has or had the following: CHF DIAGNOSIS No Discharge Core Measures Meds if any: Prescribed or Continued at Discharge Meds if any: NOT Prescribed or Continued at Discharge Cerebrovascular accident Inclusion Criteria At DC or during hospital stay patient has or had the following: CVA/TIA Diagnosis No Discharge Core Measures Meds if any: Prescribed or Continued at Discharge Meds if any: NOT Prescribed or Continued at Discharge Venous thromboembolism Inclusion Criteria VTE Diagnosis No VTE Type NONE VTE Confirmed by (Test) NONE Discharge Core Measures - Per Current guidelines, there needs to be overlap - treatment for the first 5 days of Warfarin therapy. - If discharged on Warfarin prior to 5 days of - overlap therapy, the patient will need to be - assessed for post discharge needs including - *Post discharge parental anticoagulation - *Warfarin and/or parental anticoagulation education - *Follow up date to check INR post discharge At least 5 days overlap therapy as Inpatient No Meds if any: Prescribed or Continued at Discharge Note: Overlap Therapy is Warfarin and Anticoagulant Meds if any: NOT Prescribed or Continued at Discharge
[2017-01-22 23:00] VITALS: BP 124/64
--- NOTE | 2017-01-23 05:55 | PN- Housestaff ---
ANGIE WISE,XAVIER 01/23/17 0555: Subjective Follow-up For: Bradycardia, status post pacemaker implant Compressed vertebral fractures Tele-Events Since Last Visit: Off tele Subjective: Patient seen and examined at bedside. Reports back pain under control s/p vertebral plasty yest. Currently at 6 out of 10. Came off tele as of yest. No signs of infection around the pacemaker implantation site. Denies any chest pain , dyspnea, palpitations, lightheadedness, dizziness, abdominal pain, n/v/c/d. No acute events reported overnight. Review of Systems Constitutional: Reports: see HPI. Objective Last 24 Hrs of Vital Signs/I&O Vital Signs Date Time Temp Pulse Resp B/P B/P Pulse O2 O2 Flow FiO2 Mean Ox Delivery Rate 01/22 2300 98.2 78 18 124/64 96 Room Air 01/22 2038 78 124/64 01/22 1755 61 160/70 01/22 1549 98.3 61 18 160/70 97 Room Air 01/22 0849 98.9 68 20 160/80 01/22 0800 98.5 60 18 154/78 96 Room Air Intake & Output 01/23 0800 01/23 0000 01/22 1600 Intake Total 250 450 120 Output Total Balance 250 450 120 Intake, IV 0 0 Intake, Oral 250 450 120 Number 0 0 Bowel Movements Physical Exam General Appearance: Alert, Oriented X3, Cooperative, No Acute Distress Other Physical Findings: Skin No Rashes, laceration of left temprol area healing with no active bleeding or drainage. No signs of infection over the pacemaker implantation site. Skin Temp/Moisture Exam: Warm/Dry HEENT Trauma: left parietal region has scalp laceration that has five yanet, placed, eyes not scaly today, PERRLA, EOMI, Mucous Membr. moist/pink Neck Supple, No JVD Lymphatic no cervical lymphadenopathy Cardiovascular Regular Rate, Normal S1, Normal S2, systolic Murmur + Lungs Clear to Auscultation, Normal Air Movement Abdomen Normal Bowel Sounds, Soft, No Tenderness Neurological Normal Gait, grossly intact Back Tenderness over lower back L>R, spine tenderness at multiple levels of spine Extremities No Clubbing, No Cyanosis, No Edema, Normal Pulses Current Medications: Current Medications Sig/Tricia Start time Last Medication Dose Route Stop Time Status Admin Acetaminophen 650 MG .STK-MED ONE 01/23 2036 DC PO 05/09 2037 Acetaminophen 650 MG Q6P PRN 01/14 2215 AC 01/22 PO 2039 Atorvastatin Calcium 10 MG 1700 01/15 1700 AC 01/22 PO 1755 Budesonide/ 2 PUF BID 01/15 1103 AC 01/22 Formoterol Fumarate INH 2040 Cholecalciferol 1,000 IU DAILY 01/15 1103 AC 01/22 PO 0849 Fenofibrate 145 MG DAILY 01/15 1104 AC 01/22 PO 0849 Fentanyl Citrate 200 MCG .STK-MED ONE 01/22 1115 DC IM 01/22 1116 Fluoxetine HCl 20 MG DAILY 01/15 1104 AC 01/22 PO 0848 Furosemide 40 MG DAILY 01/22 1000 AC 01/22 PO 0849 Hydralazine HCl 100 MG BID 01/22 2200 AC 01/22 PO 2038 Hydralazine HCl 50 MG TID 01/15 1105 DC 01/22 PO 1755 Hydromorphone HCl 1 MG Q6PRN PRN 01/16 1600 AC 01/23 PO 0612 Lidocaine 0 .STK-MED ONE 01/22 1120 DC .ROUTE Lorazepam 1 MG .STK-MED ONE 01/22 1117 DC PO 01/22 1118 Lorazepam 1 MG BID PRN 01/15 1115 DC 01/16 PO 1040 Midazolam HCl 2 MG .STK-MED ONE 01/22 1328 DC IM 01/22 1329 Multivitamins 1 TAB DAILY 01/15 1110 AC 01/22 Therapeutic PO 0848 Omeprazole 20 MG DAILY AC 01/15 1110 AC 01/23 PO 0610 Patient Medication 1 ED ONE ONE 01/22 1400 DC 01/22 Teaching ED 01/22 1401 1433 Polyethylene Glycol 17 GM DAILY 01/19 1156 AC 01/20 PO 0932 Pregabalin 50 MG BID 01/15 1110 DC 01/21 PO 2202 Senna/Docusate Sodium 1 TAB BID 01/19 1156 AC 01/20 PO 0932 Tiotropium [place] 1 PUF DAILY 01/15 1110 AC 01/22 INH 0846 Last 24 Hrs of Lab/Tylor Results Last 24 Hrs of Labs/Mics: Laboratory Tests 01/23/17 0640: CBC w Diff Pending, WBC Pending, RBC Pending, Hgb Pending, Hct Pending, MCV Pending, MCH Pending, RDW Pending, Plt Count Pending, MPV Pending, PUBS MCHC Pending Assessment/Plan Assessment: Ms. Branch is 86 year old female with past medical history significant for diabetes mellitus, asthma, COPD not on home oxygen, hypertension, hyperlipidemia , bradycardia, chronic kidney disease, chronic lower back pain, chronic left hydronephrosis, osteoarthritis, who presented to ED with chief complaint of mechanical fall at home. Problem list #Mechanical fall with scalp lacertion, no fracture s/p yanet placement #History of bradycardia , s/p pacemaker placement on 01/18/17 #Hypertension #Diabetes mellitus #Asthma and COPD on inhalers #Acute on Chronic low back pain, thoracic and lumbar level #Acute kidney injury on chronic kidney disease #Acute on Chronic back pain MRI lumbar of thoraco-lumbar spine shows T5 compression fracture with marrow edema, and multi level lumbar degenerative diseage with bulging of discs. * Control pain s/p vertebral augmentation (01/22) #History of junctional bradycardia, s/p pacemaker placement -S/p pacemaker placement on Saturday. Currently in sinus rhythm. Interrogation of pacemaker yesterday AM revealed that pacemaker is functioning normally. * Continue aspirin (held for pacemaker procedure) * Monitoring off tele monitoring as per cardio rec #Mechanical fall with scalp laceration, no fracture * Orthostatic BP was negtive * Discontinue tele monitoring as per cardio rec * PT evaluation * Patient still has 5 yanet in her scalp, appears healthy, needs reassessment tomorrow, and plan to take it off accordingly #HTN/HLD * Cont hydralazine 100mg BID and Lasix 40mg PO daily * Avoid any heart rate lowering drugs * Continue fenofibrate (for lyperlipidemia) * Cardiology consultation appreciated #Acute kidney injury on chronic kidney disease * Check BEP daily, trend Cr * Avoid nephrogenic medication including lasix for now #Diabetes mellitus * Accu-Chek 3 times a day * NovoLog sliding scale 3 times a day #Asthma and COPD on inhalers * TRC * Continue home inhalers #Constipation * Continue Miralax and Senokot S with parameters to hold for loose stools. Diet heart healthy DVT prophylaxis - ALPs Code full Problem List: 1. Hypertension 2. Chronic low back pain 3. CKD (chronic kidney disease) 4. Atrial fibrillation 5. Diabetes mellitus 6. Compression fracture of body of thoracic vertebra Pain Ratin Pain Location: Back Pain Goal: Remain pain free Pain Plan: Mild pathway Tomorrow's Labs & Rationales: None - discharge ANIKA CARRANZA MD 01/23/17 1614: Attending MD Review Statement Attending Statement Attending MD Statement: examined this patient, discuss w/resident/PA/COMMUTATOR INSPECTOR, agreed w/resident/PA/COMMUTATOR INSPECTOR, discussed with family, reviewed EMR data (avail), discussed with nursing, discussed with case mgmt, amended to note Attending Assessment/Plan: The patient was seen and discussed with house staff. Agree with the plan of care as outlined. Tolerating po pain medication. OK to transfer to rehab today.
--- NOTE | 2017-01-23 07:17 | PN- Student ---
Subjective Subjective: I examined Mrs. Branch this morning while she was sitting comfortably in her recliner. Overall she says she feels well post op. She stated that her back pain has decreased from an 11/10 to a 7/10. She reports no chest pains or palpitations, she stated that she has no shortness of breath that is out of the norm for her. She also denies abdominal pain, problems voiding bowel or bladder, or any pain or soreness in her lower extremity. She did express that she would like to get up and go for a walk today with PT. Objective Objective: Vital Signs Date Time Temp Pulse Resp B/P B/P Pulse O2 O2 Flow FiO2 Mean Ox Delivery Rate 01/22 2300 98.2 78 18 124/64 96 Room Air 01/22 2038 78 124/64 01/22 1755 61 160/70 01/22 1549 98.3 61 18 160/70 97 Room Air 01/22 0849 98.9 68 20 160/80 01/22 0800 98.5 60 18 154/78 96 Room Air Intake & Output 01/23 0800 01/23 0000 01/22 1600 Intake Total 250 450 120 Output Total Balance 250 450 120 Intake, IV 0 0 Intake, Oral 250 450 120 Number 0 0 Bowel Movements Telemetry: off telemetry PE: General- alert and oriented x 3, comfortably sitting in recliner, NAD HEENT- PEERLA, healing laceration present on left side of parietal area of scalp , membranes moist and pink Neck- supple, no thyromegaly or lymphadenopathy. trachea midline CV- S1 and S2 appreciated, regular rate and rhythm, no rubs heard Chest- vesicular breath sounds heard throughout all mcnally, good air flow. Pacemaker implanted in left infraclavicular area, pocket looks clean with no signs of irritation or infection. Abd- soft non-tender, bowel sounds heard, no distention Back- tender to palpation over the lumbar region of the back, pain greater on the right side that is aggravated by movement, pain 7/10. Ext- no edema present Skin- warm and well perfused, little dry but without lesions Results Results: Laboratory Tests 01/23/17 0640: CBC w Diff NO MAN DIFF REQ, RBC 4.18 L, MCV 90.4, MCH 29.4, RDW 14.5, MPV 9.6, Gran % 66.0, Lymphocytes % 19.3 L, Monocytes % 10.3 H, Eosinophils % 3.8, Basophils % 0.6, Absolute Granulocytes 5.0, Absolute Lymphocytes 1.5, Absolute Monocytes 0.8 H, Absolute Eosinophils 0.3, Absolute Basophils 0, PUBS MCHC 32.5 L 01/22/17 0724: Anion Gap 11, Estimated GFR 39 L, BUN/Creatinine Ratio 25.4 H 01/21/17 0714: Anion Gap 11, Estimated GFR 43 L, BUN/Creatinine Ratio 19.2, Magnesium 2.0 Assessment/Plan Assessment: Today Mrs. Branch seems to be recovering well from her latest procedure. According to the surgical note the kyphoplasty went well. Her pacemaker site is still clear and healing very nicely. Her vitals are stable and she is eager to get up and walk around with PT. Current Medications Sig/Tricia Start time Last Medication Dose Route Stop Time Status Admin Acetaminophen 650 MG .STK-MED ONE 01/23 2036 DC PO 01/22 2037 Acetaminophen 650 MG Q6P PRN 01/14 2215 AC 01/22 PO 203 Atorvastatin Calcium 10 MG 1700 01/15 1700 AC 01/22 PO 1755 Budesonide/ 2 PUF BID 01/15 1103 AC 01/22 Formoterol Fumarate INH 2040 Cholecalciferol 1,000 IU DAILY 01/15 1103 AC 01/22 PO 0849 Fenofibrate 145 MG DAILY 01/15 1104 AC 01/22 PO 0849 Fentanyl Citrate 200 MCG .STK-MED ONE 01/22 111 DC IM 01/22 1116 Fluoxetine HCl 20 MG DAILY 01/15 1104 AC 01/22 PO 0848 Furosemide 40 MG DAILY 01/22 1000 AC 01/22 PO 0849 Heparin Sodium 5,000 UNIT Q8 01/23 1400 AC (Porcine) SC Hydralazine HCl 100 MG BID 01/22 2200 AC 01/22 PO 2038 Hydralazine HCl 50 MG TID 01/15 1105 DC 01/22 PO 1755 Hydromorphone HCl 1 MG Q6PRN PRN 01/16 1600 AC 01/23 PO 0612 Lidocaine 0 .STK-MED ONE 01/22 1120 DC .ROUTE Lorazepam 1 MG .STK-MED ONE 01/22 1117 DC PO 01/22 1118 Lorazepam 1 MG BID PRN 01/15 1115 DC 01/16 PO 1040 Midazolam HCl 2 MG .STK-MED ONE 01/22 1328 DC IM 01/22 1329 Multivitamins 1 TAB DAILY 01/15 1110 AC 01/22 Therapeutic PO 0848 Omeprazole 20 MG DAILY AC 01/15 1110 AC 05 PO 0610 Patient Medication 1 ED ONE ONE 01/22 1400 DC 01/22 Teaching ED 01/22 1401 1433 Polyethylene Glycol 17 GM DAILY 01/19 1156 AC 01/20 PO 0932 Pregabalin 50 MG BID 01/15 1110 DC 01/21 PO 2202 Senna/Docusate Sodium 1 TAB BID 01/19 1156 AC 01/20 PO 0932 Tiotropium [place] 1 PUF DAILY 01/15 1110 AC 01/22 INH 0846 Plan: Patient was taken off of telemetry monitoring yesterday. She has been recovering very well since her pacemaker and now since her vertebroplasty. Her pain is still there yet it is diminished a bit. Will continue her pain medication for now, medication were switched to PO. Continue to monitor electrolytes since she is on lasix. Will follow cardiology recommendations regarding BP management and outpatient follow up. Planned DC today to short term rehab. Cardiology Recommendations: -This patient is doing better following pacemaker placement with improvement in her renal function likely due to resolution of a pre-renal state. -BP is improved although not yet in the ideal range. Increase hydralazine to 100mg TID. -Patient is breathing a bit better on Lasix. Continue this medication at 40mg daily. Okay for discharge from a cardiac standpoint with follow up recommended in one week in the office. Problem List: 1. Mechanical fall- head laceration healing nicely, orthostatics have been negative, patient is at fall risk and will see PT. continue to monitor wound. 2. Spinal compression Fx- vertebroplasty schedule for saturday. 3. atrial fibrillation- has been in NSR since pacemaker implantation, will follow up with cardio if she reverts back to afib. Will hold anticoagulation unless she converts back to afib, as per cardio. 4. 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 Acute Renal Failure and Chronic Kidney Disease- continue on 40 mg per day lasix PO. BUN/[employer] Carman- 33, [employer] Carman- 1.3 (baseline is 1.4) 6. Diabetes Mellitus- blood glucose monitoring TID w/ sliding scale novolog 7. COPD and Asthma- continue home medications and TRC 8. Hypertension- heart healthy diet and continue home medications Diet: heart healthy DVT prophylaxis: Alps for now, SQ heparin Code Status: full code
[2017-01-23 08:05] LABS: ABSOLUTE BASOPHIL COUNT 0 /CUMM (0.0-0.2); ABSOLUTE EOSINOPHIL COUNT 0.3 /CUMM (0.0-0.7); ABSOLUTE LYMPH COUNT 1.5 /CUMM (1.2-3.4); ABSOLUTE MONOCYTE COUNT 0.8 /CUMM (0.10-0.60); BASOPHIL % 0.6 % (0.0-2.0); EOSINOPHIL % 3.8 % (0-5); HEMATOCRIT 37.8 % (37-47); MEAN CORPUSCULAR HGB 29.4 PG (27.0-31.0); MEAN CORPUSCULAR HGB CONC 32.5 G/DL (33.0-37.0); MEAN CORPUSCULAR VOLUME 90.4 FL (81.0-99.0); MEAN PLATELET VOLUME 9.6 FL (7.4-10.4); PLATELET COUNT 260 /CUMM (130-400); RBC DISTRIBUTION WIDTH 14.5 % (11.5-14.5); RED BLOOD CELL CT 4.18 /CUMM (4.20-5.40); WHITE BLOOD CELL COUNT 7.6 /CUMM (4.8-10.8)
[2017-01-23 08:28] VITALS: BP 148/80
[2017-01-23 12:57] VITALS: BP 148/80
--- NOTE | 2017-01-23 13:41 | PN- Cardiology ---
Subjective Subjective: * Doing well. No lightheadedenss or shortness of breath. Objective Vital Signs and I&Os Vital Signs Date Time Temp Pulse Resp B/P B/P Pulse O2 O2 Flow FiO2 Mean Ox Delivery Rate 01/23 1257 97.9 60 18 148/80 01/23 1240 Room Air 01/23 1042 60 148/80 01/23 0828 97.9 60 18 148/80 96 Room Air 01/22 2300 98.2 78 18 124/64 96 Room Air 01/22 2038 78 124/64 01/22 1755 61 160/70 01/22 1549 98.3 61 18 160/70 97 Room Air Intake & Output 01/23 1600 01/23 0800 01/23 0000 01/22 1600 01/22 0800 01/22 0000 Intake Total 250 450 120 100 Output Total Balance 250 450 120 100 Intake, IV 0 0 Intake, Oral 250 450 120 100 Number 0 0 Bowel Movements Physical Exam: General: WD/ overweight female in NAD; alert and oriented x 3 Neck: no JVD, no carotid bruit Chest: pacer site is WNL Heart: regular rate and rhythm with 2/6 systolic murmur Lungs: no crackles or wheezing Extremities: no edema Assessment/Plan Assessment/Plan * This patient is doing better following pacemaker placement with improvement in her renal function likely due to resolution of a pre-renal state. * BP is improved although not yet in the ideal range. Increase hydralazine to 100mg TID. * Patient is breathing a bit better on Lasix. Continue this medication at 40mg daily. Okay for discharge from a cardiac standpoint with follow up recommended in one week in the office. Continue telemetry? No
[2017-01-23] MEDS ORDERED: HYDRALAZINE HCL50 M1 PO (14:10)
--- NOTE | 2017-01-24 09:51 | Proc Note Cardiology ---
Cardiology Procedure Procedure Date: 01/18/17 Cardiology Procedure(s): Permanent pacemaker Pre-Operative Diagnosis: symptomatic bradycardia Post-Operative Diagnosis: same Estimated Blood Loss: scant Anesthesia: local monitored anesthesi Procedure Findings: History: Ms. Branch is an 86 year female with history of bradycardia and junctional heart rhythm. She also carries a history of increased cardiac troponin. While walking with a walker toward her kitchen table this patient fell backward hitting her head. She does not recall tripping on anything but denies loss of consciousness. She also denies any obvious palpitations. In the ER the patient was noted to be bradycardic with heart rate as slow as 38bpm. Procedure: This patient was prepped and draped in the usual sterile fashion after having obtained informed consent. She was administered 1 gm of Ancef as prophylaxis against infection. An incision was then made in the left subclavicular space where a pacemaker pocket was dissected out. Access was obtained in the left subclavian vein via the [employer] techinique and a 7F sheath was placed in the vein. Two wires were placed and the sheath then removed and placed over a single wire with retension of the remaining wire for later use. The right ventricular lead was then placed in the right ventricular apex and pacing parameters were checked and confirmed to be good. We then removed the sheath and placed a second 7F sheath in the left subclavian vein and through this passed the lead to the right atrial appendage. Pacing parameters were again checked and confirmed to be within acceptable, or better, limits. The sheath was removed and the leads were sewn into place and the pacemaker was then placed in the pocket after attaching both leads. The pacemaker pocket was sutured closed with three layers of absorpable suture. The pacemaker was again tested and the patient was brought to recovery where a chest X-ray and 12 lead ECG were obtained. Pacemaker: Medtronic Advisa MRI safe Pacemaker Model # A2DR01 with serial # [id number] Atrial Lead: Model # 5076-45 Serial # [id number] Voltage: 0.7V Current: 1.3mA Impedance: 531 Ohms P wave: 2.9mV Ventricular Lead: Model # 5076-52 Serial # [id number] Voltage: 0.7V Current: 1.1mA Impedance: 652 Ohms R wave: 8.4 The patient tolerated this procedure well without complications.
== END 2017-01-23 16:30 | DRG 243 ==
LOC: ERH 16:04 → ERHI 20:05 → 1NO 20:05 → ENRESERV 23:45 → 1NO 01-15 06:05 → ENPENDDIS 01-23 09:20 → 1NO 01-23 12:29
PROVIDERS: Physician Assistant Medical; Student in an Organized Health Care Education/Training Program; ADMIT Internal Medicine
PROC: 0HQ0XZZ Repair Scalp Skin, External Approach (ICD-10-PCS; 2017-01-16)
PROC: 0JH606Z Insertion of Pacemaker, Dual Chamber into Chest Subcutaneous Tissue and Fascia, Open Approach (ICD-10-PCS; principal; 2017-01-18)
PROC: 02HK3JZ Insertion of Pacemaker Lead into Right Ventricle, Percutaneous Approach (ICD-10-PCS; principal; 2017-01-18)
PROC: 02H63JZ Insertion of Pacemaker Lead into Right Atrium, Percutaneous Approach (ICD-10-PCS; principal; 2017-01-18)
PROC: 0PS43ZZ Reposition Thoracic Vertebra, Percutaneous Approach (ICD-10-PCS; 2017-01-22)
PROC: 0PU43JZ Supplement Thoracic Vertebra with Synthetic Substitute, Percutaneous Approach (ICD-10-PCS; 2017-01-22)
DX: R00.1 Bradycardia, unspecified (principal); N17.9 Acute kidney failure, unspecified; J44.9 Chronic obstructive pulmonary disease, unspecified; M80.08XA Age-related osteoporosis with current pathological fracture, vertebra(e), initial encounter for fracture; E11.22 Type 2 diabetes mellitus with diabetic chronic kidney disease; Z99.81 Dependence on supplemental oxygen; J45.909 Unspecified asthma, uncomplicated; S01.01XA Laceration without foreign body of scalp, initial encounter; I12.9 Hypertensive chronic kidney disease with stage 1 through stage 4 chronic kidney disease, or unspecified chronic kidney disease; E78.5 Hyperlipidemia, unspecified; I48.0 Paroxysmal atrial fibrillation; W19.XXXA Unspecified fall, initial encounter; Y92.009 Unspecified place in unspecified non-institutional (private) residence as the place of occurrence of the external cause; G89.29 Other chronic pain; M54.5 Low back pain; M48.06 Spinal stenosis, lumbar region; M51.16 Intervertebral disc disorders with radiculopathy, lumbar region; K59.00 Constipation, unspecified; N18.9 Chronic kidney disease, unspecified
CPT/HCPCS: 04007; 1NP; 72146; 72148; 36415; 72110; 74176; 81001; 82436; 93005; 93010; 96372; 96374; 97110-GO; 97116-GO; 97161-GP; 97165-GO; 97530-GO; 97530-GP; 99291; C1785; C1898; G8978-GP; G8979-GP; J0690; J1644; J3490

== ENCOUNTER 2017-02-11 13:12 | Inpatient (IN) | payer OTHER ==
[~2017-02-11] VITALS: Ht 152.4 cm; Wt 81.6 kg
[~2017-02-11 13:12] MED LIST changes: +ALBUTEROL2.5 MG/3 M INH/SOL; +HYDROXYZINE HCL25 M2 PO; +LASIX40 M1 PO; +LORAZEPAM1 M1 PO; +LYRICA50 M1 PO; +MULTI-DAY VITA1 EACH PO; +OMEPRAZOLE20 M3 PO; +TUDORZA PRESS400 MCG INH
--- NOTE | 2017-02-11 13:16 | ED MVC/FALL/TRAUMA COMPLAINT ---
History of Present Illness General Chief Complaint: Fall Stated Complaint: BIBA WITH A FALL WITH A HEAD WOUND Source: patient, family, old records, EMS Exam Limitations: no limitations Vital Signs & Intake/Output Vital Signs & Intake/Output Vital Signs Date Time Temp Pulse Resp B/P B/P Pulse O2 O2 Flow FiO2 Mean Ox Delivery Rate 02/14 1052 96.1 112 32 180/88 99 Non 100% ReBreather 02/14 0859 92 Nasal 2.0L Cannula 02/14 08 90 Nasal Room Air Cannula 02/14 08 99.9 79 20 96/56 93 Room Air 02/14 0055 98.9 77 22 92/60 94 Room Air 02/14 0000 94 Room Air 02/13 2154 122/60 02/13 1921 97 Room Air Room Air ED Intake and Output 02/14 0000 02/13 1200 Intake Total 520 800 Output Total 350 Balance 520 450 Intake, IV 600 Intake, Oral 520 200 Output, Urine 350 Patient 180 lb Weight Allergies Coded Allergies: NO KNOWN ALLERGIES (12/24/12) Reconcile Medications Albuterol Sulfate 2.5 MG/3 ML (0.083 %) VIAL.NEB 1 Vial INH/TWIN Q6H PRN WHEEZING (Reported) Aspirin (Aspirin*) 81 MG TAB.CHEW 1 TAB PO DAILY PACEMAKER (Reported) Budesonide/Formoterol Fumarate (Symbicort 80-4.5 Mcg Inhaler) 80 MCG-4.5 MCG/ ACTUATION HFA.AER.AD 2 PUF INH BID BREATHING PROBLEMS (Reported) Cholecalciferol (Vitamin D3) 1,000 UNIT TABLET 1 TAB PO DAILY SUPPLEMENT ( Reported) Fenofibrate Nanocrystallized (Fenofibrate) 145 MG TABLET 1 TAB PO DAILY cholesterol (Reported) Fluoxetine HCl 20 MG CAPSULE 1 CAP PO DAILY MENTAL HEALTH (Reported) Hydralazine HCl 100 MG TABLET 1 TAB PO BID HTN (Reported) Hydrochlorothiazide 50 MG TABLET 1 TAB PO DAILY HTN (Reported) Hydromorphone HCl (Dilaudid) 2 MG TABLET 1 TAB PO Q4H PRN PAIN (Reported) Hydroxyzine HCl 25 MG TABLET 1 TAB PO TID PRN ITCHING (Reported) Lidocaine (Lidoderm) 5 % ADH..PATCH 1 PAT TOP DAILY PAIN (Reported) may wear up to 12 hours Lorazepam 1 MG TABLET 1 TAB PO BID PRN ANXIETY (Reported) Lovastatin 40 MG TABLET 1 TAB PO DAILY CHOLESTEROL (Reported) with food Multivitamin (Multi-Day Vitamins) 1 EACH TABLET 1 TAB PO DAILY SUPPLEMENT ( Reported) Omeprazole 20 MG TABLET.DR 1 TAB PO DAILY GI (Reported) Pregabalin (Lyrica) 50 MG CAPSULE 1 CAP PO BID PAIN (Reported) Tiotropium [place] (Spiriva) 18 MCG CAP.W.DEV 1 CAP INH DAILY RESPIRATORY ( Reported) Triage Nurses Notes Reviewed? 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 The circumstances regarding around the fall are unknown the patient denies any prodromal dizziness or lightheadedness however states she was standing she did not trip. She now present with a laceration to the back or head complaining of upper back pain. She is status post KYPHOPLASTY earlier thismonth. Patient is unsure if she blacked out. No abdominal pain nausea vomiting headache at this time no change in her mental status per daughter who is with her currently. She states she took a pain pill and Ativan earlier this morning as she normally does on arrival patient noted to be hypertensive she does state she did take the rest of her medication. (PAVEL TRISTAN) Past History Travel History Traveled to [place] past 21 day No Medical History Any Pertinent Medical History? see below for history Neurological: NONE EENT: NONE Cardiovascular: hypertension, hyperlipidemia, pacemaker Respiratory: asthma Gastrointestinal: NONE Hepatic: NONE Renal: RENAL MASS Musculoskeletal: NONE Psychiatric: NONE Endocrine: diabetes Blood Disorders: NONE Cancer(s): NONE SENIOR ART DIRECTOR/Reproductive: NONE History of MRSA: No History of VRE: No History of CDIFF: No Surgical History Surgical History: spinal fusion Psychosocial History Who do you live with Family Services at Home Nursing What is your primary language Colombian Family History Hx Contributory? No (PAVEL TRISTAN) Review of Systems Review of Systems Constitutional: Reports: see HPI. All Other Systems: Reviewed and Negative Comments Review of systems: See HPI, All other systems negative. Constitutional, no chills no fever, no malaise HEENT: No visual changes no sore throat no congestion, no ear pain Cardiovascular: No chest pain , no palpitation , no orthopnea Skin: no rashes, no change in skin Respiratory: No dyspnea no cough no sputum GI: No nausea no vomiting, no diarrhea, no bloating : No dysuria No hematuria, no frequency Muscle skeletal: No joint pain, no joint swelling, CHRONIC back pain, no neck pain, Neurologic: No numbness no confusion, no headache Psych: No stress no depression,. Heme/endocrine: No bruising no bleeding Immunology: No lymphadenopathy (PAVEL TRISTAN) Physical Exam Physical Exam General Appearance: well developed/nourished, alert, awake Comments: Well-developed well-nourished person in no acute distress HEENT: Normal EENT exam; PERRL, EOMI, no nystagmus. There is a 2 cm avulsion injury noted to the, posterior scalp, moist mucous membranes. Neck: c collar in place, b/l paracervical tendernsss Back: Nontender, no ecchymosis no CVA tenderness. Full range of motion Cardiovascular: Regular rate and rhythms no murmurs rubs Respiratory: Chest nontender.There were no bony deformities, no asymmetry. No respiratory distress. Patient speaking in full complete sentences. Breath sounds clear to auscultation bilaterally: NO W/R/R Abdomen: Soft, nontender nondistended, no appreciable organomegaly. Normal bowel sounds. No rebound/guarding Extremity: No edema, full range of motion of extremities, normal and equal pulses bilaterally, 5 out of 5 strength noted to bilateral upper and lower extremities Neuro: Alert oriented x3, motor sensory normal, cranial nerves II through XII grossly intact. There were no obvious focal neurologic abnormalities. Skin: No appreciable rash on exposed skin, skin is warm and dry. Psych: Mood and affect is normal, memory and judgment is normal. Core Measures ACS in differential dx? Yes Severe Sepsis Present: No Septic Shock Present: No (PAVEL TRISTAN) Progress Differential Diagnosis: abd injury, C/T/L spine injury, ext injury, ICH, pelvis injury, pnemothorax, spinal cord injury, laceartion Plan of Care: Orders Procedure Date/time Status Code Status 02/14 1152 Active Code Status 02/14 1117 Complete VRE ACTIVE SURVIELLANCE 02/14 1106 Active ACTIVE SURVEILLANCE NARES 02/14 1106 Active TROPONIN LEVEL 02/14 1044 Active ARTERIAL BLOOD GAS (GEN) 02/14 1042 Active Transfer patient to 02/14 1042 Active TROPONIN LEVEL 02/14 0500 Complete EKG 02/14 0500 Active OXYGEN SETUP (GEN) 02/14 UNK Complete Therapeutic Activities 02/14 UNK Complete Discharge Patient 02/14 UNK Active [place], Insertion/Removal/Asses 02/14 UNK Active EKG 02/14 UNK Active CASE MANAGEMENT CONSULT 02/14 UNK Active TROPONIN LEVEL 02/13 2330 Complete LACTIC ACID 02/13 2330 Complete EKG 02/13 2330 Active AEROSOL CHG 02/13 UNK Complete Laboratory Tests 02/14/17 0515: Troponin I 0.15 *H 02/14/17 0515: Anion Gap 14, Estimated GFR 16 L, BUN/Creatinine Ratio 13.9, Magnesium 1.8, CBC w Diff NO MAN DIFF REQ, RBC 4.24, MCV 88.9, MCH 29.0, RDW 15.0 H, MPV 11.0 H, Gran % 89.0 H, Lymphocytes % 5.0 L, Monocytes % 5.9, Eosinophils % 0, Basophils % 0.1, Absolute Granulocytes 17.0 H, Absolute Lymphocytes 0.9 L, Absolute Monocytes 1.1 H, Absolute Eosinophils 0, Absolute Basophils 0, PUBS MCHC 32.6 L 02/13/17 2327: Lactic Acid 3.0 H, Troponin I 0.12 *H Microbiology 02/14 1128 UPPER RESP: Surveillance Culture - RECD 02/14 1128 GI: Surveillance Culture - RECD Labs ordered old records. CAT scan ordered case discussed with Dr. dorsey Discussed with patient and her daughter allo f her CAT scan imaging findings lab results. Creatinine is at baseline. She is declining anything on offered for pain patient's blood pressure has improved with hydralazine however patient is orthostatic upon standing. The wound to the back of the head was cleaned by nursing discussed with her and her daughter that there is nothing that I can suture at this time as it is a an avulsion injury to the back or scalp Case discussed with Dr. cliff celis teleobs (PAVEL TRISTAN) Diagnostic Imaging: Viewed by Me: CT Scan. Discussed w/RAD: CT Scan. Initial ED EKG: normal intervals, normal p-waves, normal QRS complex, normal sinus rhythm (80) Prior EKG: unchanged (01/18/17) Rhythm Strip: normal sinus rhythm (PAVEL TRISTAN) Departure Departure Time of Disposition: 1620 Disposition: STILL A PATIENT Condition: Stable Clinical Impression Primary Impression: Orthostatic hypotension Secondary Impressions: Compression fracture of thoracic vertebra Referrals: TYREL HARRIS APRN (PCP/Family) Departure Forms: Customer Survey General Discharge Information Observation Note Spoke With: SUSANA THORNE MD Place Patient In: Non-ED OBS Care Area Rationale for Observation: My rational for observation is as follows [TELE MONITORING, IV FLUIDS, TREND LABS, MEDICATION ADJUSTMENT, PREAMTURE DISCHARGE WOULD BE MEDICALLY HARMFUL, PT CONSULT, PT MAY REQUIRE REHAB PLACMEENT (PAVEL TRISTAN) PA/GYMNASTIC TEACHER Co-Sign Statement Statement: ED Attending supervision documentation- x I saw and evaluated the patient. I have also reviewed all the pertinent lab results and diagnostic results. I agree with the findings and the plan of care as documented in the PA's/GYMNASTIC TEACHER's documentation. [] I have reviewed the ED Record and agree with the PA's/GYMNASTIC TEACHER's documentation. [] Additions or exceptions (if any) to the PAs/GYMNASTIC TEACHER's note and plan are summarized below: [] (HAILEY WISE,ELIZA) 02/11/17 1510: Urine Opiates Screen 1162.00, Methadone Screen < 40, Barbiturate Screen < 60, Ur Phencyclidine Scrn < 6.00, Amphetamines Screen < 100, U Benzodiazepines Scrn < 85, Urine Cocaine Screen < 50, Urine Cannabis Screen < 5.00, Urine Color YEL, Urine Clarity HAZY H, Urine pH 7.0, Ur Specific [place] 1.015, Urine Protein 30 H, Urine Ketones NEG, Urine Nitrite POS H, Urine Bilirubin NEG, Urine Urobilinogen 0.2, Ur Leukocyte Esterase MOD H, Ur Microscopic SEDIMENT EXAMINED , Urine RBC RARE, Urine WBC 5-10 H, Ur Epithelial Cells RARE, Urine Bacteria MANY H, Hyaline Casts RARE H, Urine Hemoglobin NEG, Urine Glucose NEG 02/11/17 1505: Anion Gap 12, Estimated GFR 39 L, BUN/Creatinine Ratio 24.6, Glucose 90, Calcium 9.8, Magnesium 2.0, Total Bilirubin 0.8, AST 51 H, ALT 49, Alkaline Phosphatase 99, Troponin I 0.03, Total Protein 7.5, Albumin 4.2, Globulin 3.3, Albumin/Globulin Ratio 1.3, 25-OH Vitamin D Total Pending 02/11/17 1335: PT 11.4, INR 1.09, APTT 32, CBC w Diff NO MAN DIFF REQ, RBC 4.68, MCV 89.5, MCH 29.1, RDW 14.7 H, MPV 9.4, Gran % 66.8, Lymphocytes % 21.7, Monocytes % 7.7, Eosinophils % 3.2, Basophils % 0.6, Absolute Granulocytes 5.7, Absolute Lymphocytes 1.9, Absolute Monocytes 0.7 H, Absolute Eosinophils 0.3, Absolute Basophils 0, PUBS MCHC 32.5 L Labs ordered old records. CAT scan ordered case discussed with Dr. dorsey Discussed with patient and her daughter allo f her CAT scan imaging findings lab results. Creatinine is at baseline. She is declining anything on offered for pain patient's blood pressure has improved with hydralazine however patient is orthostatic upon standing. The wound to the back of the head was cleaned by nursing discussed with her and her daughter that there is nothing that I can suture at this time as it is a an avulsion injury to the back or scalp Case discussed with Dr. cliff cassidyobs (PAVEL TRISTAN) Diagnostic Imaging: Viewed by Me: CT Scan. Discussed w/RAD: CT Scan. Initial ED EKG: normal intervals, normal p-waves, normal QRS complex, normal sinus rhythm (80) Prior EKG: unchanged (01/18/17) Rhythm Strip: normal sinus rhythm Departure Departure Time of Disposition: 1620 Disposition: STILL A PATIENT Condition: Stable Clinical Impression Primary Impression: Orthostatic hypotension Secondary Impressions: Compression fracture of thoracic vertebra Referrals: TYREL HARRIS APRN (PCP/Family) Departure Forms: Customer Survey General Discharge Information Observation Note Spoke With: CLIFF WISE,SUSANA Olivo Place Patient In: Non-ED OBS Care Area Rationale for Observation: My rational for observation is as follows [TELE MONITORING, IV FLUIDS, TREND LABS, MEDICATION ADJUSTMENT, PREAMTURE DISCHARGE WOULD BE MEDICALLY HARMFUL, PT CONSULT, PT MAY REQUIRE REHAB PLACMEENT
[2017-02-11] MEDS ORDERED: VITAMIN D31000 UNI2 PO (13:28)
[2017-02-11] MEDS ORDERED: HYDRALAZINE HC100 M1 PO (13:29)
[2017-02-11] MEDS ORDERED: HYDROCHLOROTHIA50 M1 PO (13:30)
[2017-02-11 13:43] LABS: ABSOLUTE BASOPHIL COUNT 0 /CUMM (0.0-0.2); ABSOLUTE EOSINOPHIL COUNT 0.3 /CUMM (0.0-0.7); ABSOLUTE GRANULOCYTE CT 5.7 /CUMM (1.4-6.5); ABSOLUTE LYMPH COUNT 1.9 /CUMM (1.2-3.4); ABSOLUTE MONOCYTE COUNT 0.7 /CUMM (0.10-0.60); BASOPHIL % 0.6 % (0.0-2.0); EOSINOPHIL % 3.2 % (0-5); GRANULOCYTE % 66.8 % (42.2-75.2); HEMATOCRIT 41.9 % (37-47); MEAN CORPUSCULAR HGB 29.1 PG (27.0-31.0); MEAN CORPUSCULAR HGB CONC 32.5 G/DL (33.0-37.0); MEAN CORPUSCULAR VOLUME 89.5 FL (81.0-99.0); MEAN PLATELET VOLUME 9.4 FL (7.4-10.4); PLATELET COUNT 266 /CUMM (130-400); RBC DISTRIBUTION WIDTH 14.7 % (11.5-14.5); RED BLOOD CELL CT 4.68 /CUMM (4.20-5.40); WHITE BLOOD CELL COUNT 8.6 /CUMM (4.8-10.8)
[2017-02-11 13:53] LABS: PT 11.4 SEC (9.4-12.5); PTT 32 SEC (25-37)
--- NOTE | 2017-02-11 15:26 | CT SCAN REPORT ---
EXAMINATION: CRANIAL CT SCAN/CT SCAN OF THE CERVICAL SPINE CLINICAL INFORMATION: Fell and hit head COMPARISON: Cranial CT scan dated 01/14/2017 TECHNIQUE: Multidetector volumetric helical axial images are acquired through the head and cervical spine. Coronal and sagittal reformatted images of the cervical spine are constructed at the workstation FINDINGS: Cranial CT scan: There is no acute intra or extra-axial hemorrhage or mass effect. The ventricles are normal in size for the patient's age and unchanged from prior study. There is no midline shift. Sulci and cisterns are proportionately prominent with no change from prior. No abnormal extra-axial fluid collections are appreciated. Waldrop-white matter differentiation is maintained and there is no new focal parenchymal abnormality. Foci of hypoattenuation within the periventricular white matter are consistent with small vessel ischemic disease. No fracture is identified. Visualized paranasal sinuses and mastoid air cells are clear. Cervical spine CT: Vertebral body height and alignment is maintained in the cervical spine. There is degenerative disc disease at the C3-C4 and C4-C5 levels with associated hypertrophic spurring. There is facet arthropathy which is most pronounced from the C2-C5 levels bilaterally right greater than left. This is associated with hypertrophic spurring. No acute fracture or subluxation is identified in the cervical spine. There is superior endplate compression of the T1 vertebra. This is a new finding compared to the 01/14/2017 and likely represents an acute compression fracture. There is less than 25% loss of vertebral body height. There is no subluxation. Alignment is maintained.. The lung apices are clear. The prevertebral and retropharyngeal soft tissues are normal in thickness. The visualized thyroid gland is normal in appearance... IMPRESSION: 1. No acute abnormality is seen in the noncontrast cranial CT scan. Findings are similar to the study of 01/14/2017. There are chronic small vessel ischemic changes with no hemorrhage, mass effect or midline shift. 2. There is degenerative disc disease and facet arthropathy in the cervical spine most pronounced at the C3-C4 and C4-C5 levels. No acute fracture or subluxation is seen in the cervical spine. 3. There is a mild superior endplate compression fracture of the T1 vertebra which is new since 01/14/2017. There is no significant subluxation.
--- NOTE | 2017-02-11 15:59 | CT SCAN REPORT ---
EXAMINATION: CT THORACIC SPINE WO IV CONTRAST CLINICAL INFORMATION: Injury with upper back pain COMPARISON: CT scan of the chest dated 01/14/2017 and vertebral Kyphoplasty imaging from 01/22/2017 TECHNIQUE: Multidetector volumetric helical axial images are acquired through the thoracic spine from T1 through L1. Sagittal and coronal reformatted images are constructed at the workstation. There is extensive motion artifact from T9 through T12 limiting interpretation of these regions. FINDINGS: As seen on the CT scan of the cervical spine, there is a superior endplate compression fracture of the T1 vertebra with approximately 15% loss of vertebral body height. This is new compared to 01/14/2017. No subluxation. The posterior elements are grossly intact. No impingement upon the spinal canal. Vertebral kyphoplasty changes are seen within a compressed T5 vertebral body. The compression fracture was present on 01/14/2017. Kyphoplasty changes are new.. There is approximately 2 mm of posterior impingement on the spinal canal on the right by the compressed vertebral body. No subluxation. There is compression fracture of the T6 vertebral body which is new since 01/14/2017. There is loss of vertebral body height by approximately 25%. There is no subluxation or impingement on the spinal canal. Posterior elements are grossly intact. No other new compression fractures are identified. Detail of the vertebral bodies and posterior elements from T9 through T12 is limited secondary to extensive motion artifact. There is a right convex thoracic scoliosis. IMPRESSION: 1. New compression fractures of the T1 and T6 vertebral bodies since 01/14/2017 as described above. No significant subluxation. Posterior elements are grossly intact. 2. Thoracic kyphoplasty changes at T5 as described slight posterior impingement on the right side of the spinal canal by the compressed vertebral body at T5, likely not acute. 3. Limited evaluation of the thoracic spine from T9 through T12 secondary to motion artifact.
--- NOTE | 2017-02-11 17:39 | History & Physical ---
SHUN BENNETT 02/11/17 4368: General Information and HPI MD Statement: I have seen and personally examined TIFFANY GUERRA and documented this H&P. The patient is a 86 year old F who presented with a patient stated chief complaint of unwitnessed fall/syncopal episode this morning []. Source of Information: patient Exam Limitations: no limitations History of Present Illness: Patient is 86-year-old female with past medical history significant for asthma, COPD, hypertension, hyperlipidemia, history of bradycardia status post pacemaker placement, chronic kidney cc, chronic lower back pain, osteoarthritis came with chief complaint of unwitnessed fall/syncopal episode this morning. Patient was out with her granddaughter for shopping and granddaughter found her on Floor, patient didnot remember what happened and how she fell. Her fall resulted in scalp laceration and occipital region. Patient denied chest pain, palpitations, shortness of breath, dizziness, any urinary or bowel complaints Vital signs on admission were temperature 98.2, pulse 65, respiratory rate 18, blood pressure 216/100 mmHg later came down to 175/73. Was significantly orthostatics positive with blood pressure on lying 179/82 that dropped down to 102/[address] was negative for any acute intracranial pathology but CT spine showed mild superior endplate compression fracture of T1 vertebra which was new since January 14 but there is no significant subluxation Allergies/Medications Allergies: Coded Allergies: NO KNOWN ALLERGIES (12/24/12) Compliance With Home Meds: FAIR Past History Travel History Traveled to [place] past 21 day No Medical History Neurological: NONE EENT: NONE Cardiovascular: hypertension, hyperlipidemia, pacemaker Respiratory: asthma, COPD Gastrointestinal: NONE Hepatic: NONE Renal: RENAL MASS HYDRONEPHROSIS OBSTRUCTING CALUCULUS CHRONIC KIDNEY DISEASE Musculoskeletal: LOW BACK PAIN MULTIPLE FALLS OSTEOARTHRITIS Psychiatric: anxiety, MAJOR DEPRESSIVE DISORDER Endocrine: DIABETES 2 Blood Disorders: NONE Cancer(s): NONE TEST ENGINE MECHANIC/Reproductive: NONE History of MRSA: No History of VRE: No History of CDIFF: No Surgical History Surgical History: spinal fusion Past Family/Social History Family History Relations & Conditions if any Relation not specified for: *No pertinent family history Psychosocial History Where do you live? Home Services at Home: Nursing ETOH Use: denies use Functional Ability ADLs Needs Assist: dressing, eating, toileting, bathing. Ambulation: walker IADLs Needs Assist: shopping, housework, finances, food prep, telephone, transportation, medication admin. Review of Systems Review of Systems Constitutional: Reports: malaise, weakness. Denies: chills, diaphoresis, fever. Cardiovascular: Denies: chest pain, edema, orthopena. Respiratory: Denies: hemoptysis, orthopnea. GI: Denies: bloating, constipation. Genitourinary: Denies: dysuria, frequency. Musculoskeletal: Reports: back pain. Skin: Reports: see HPI. Exam & Diagnostic Data Last 24 Hrs of Vital Signs/I&O Vital Signs Date Time Temp Pulse Resp B/P B/P Pulse O2 O2 Flow FiO2 Mean Ox Delivery Rate 02/11 1727 60 60 175/73 93 02/11 1530 62 18 168/77 95 Room Air 02/11 1357 95 Room Air 02/11 1339 98.2 65 18 216/100 02/11 1326 98.2 65 18 216/100 95 Room Air Intake & Output 02/11 1600 02/11 0800 02/11 0000 Intake Total Output Total Balance Patient 180 lb Weight Weight Estimated Measurement Method Physical Exam General Appearance Alert, Oriented X3, Cooperative, No Acute Distress Skin laceration on back of scalp Cardiovascular Normal S1, Normal S2 Lungs bilateral ronchi Abdomen Soft, No Tenderness Extremities No Clubbing, No Cyanosis, No Edema Last 24 Hrs of Labs/Tylor: Laboratory Tests 02/11/17 1510: Urine Opiates Screen 1162.00, Methadone Screen < 40, Barbiturate Screen < 60, Ur Phencyclidine Scrn < 6.00, Amphetamines Screen < 100, U Benzodiazepines Scrn < 85, Urine Cocaine Screen < 50, Urine Cannabis Screen < 5.00, Urine Color YEL, Urine Clarity HAZY H, Urine pH 7.0, Ur Specific [place] 1.015, Urine Protein 30 H, Urine Ketones NEG, Urine Nitrite POS H, Urine Bilirubin NEG, Urine Urobilinogen 0.2, Ur Leukocyte Esterase MOD H, Ur Microscopic SEDIMENT EXAMINED , Urine RBC RARE, Urine WBC 5-10 H, Ur Epithelial Cells RARE, Urine Bacteria MANY H, Hyaline Casts RARE H, Urine Hemoglobin NEG, Urine Glucose NEG 02/11/17 1505: Anion Gap 12, Estimated GFR 39 L, BUN/Creatinine Ratio 24.6, Glucose 90, Calcium 9.8, Magnesium 2.0, Total Bilirubin 0.8, AST 51 H, ALT 49, Alkaline Phosphatase 99, Troponin I 0.03, Total Protein 7.5, Albumin 4.2, Globulin 3.3, Albumin/Globulin Ratio 1.3, 25-OH Vitamin D Total Pending 02/11/17 1335: PT 11.4, INR 1.09, APTT 32, CBC w Diff NO MAN DIFF REQ, RBC 4.68, MCV 89.5, MCH 29.1, RDW 14.7 H, MPV 9.4, Gran % 66.8, Lymphocytes % 21.7, Monocytes % 7.7, Eosinophils % 3.2, Basophils % 0.6, Absolute Granulocytes 5.7, Absolute Lymphocytes 1.9, Absolute Monocytes 0.7 H, Absolute Eosinophils 0.3, Absolute Basophils 0, PUBS MCHC 32.5 L Diagnostic Data Other Results SERVICE DATE: 02/11/17-1325 EXAM TYPE: CAT - CT THOR SPINE WO IV CONTRAST EXAMINATION: CT THORACIC SPINE WO IV CONTRAST CLINICAL INFORMATION: Injury with upper back pain COMPARISON: CT scan of the chest dated 01/14/2017 and vertebral Kyphoplasty imaging from 01/22/2017 TECHNIQUE: Multidetector volumetric helical axial images are acquired through the thoracic spine from T1 through L1. Sagittal and coronal reformatted images are constructed at the workstation. There is extensive motion artifact from T9 through T12 limiting interpretation of these regions. FINDINGS: As seen on the CT scan of the cervical spine, there is a superior endplate compression fracture of the T1 vertebra with approximately 15% loss of vertebral body height. This is new compared to 01/14/2017. No subluxation. The posterior elements are grossly intact. No impingement upon the spinal canal. Vertebral kyphoplasty changes are seen within a compressed T5 vertebral body. The compression fracture was present on 01/14/2017. Kyphoplasty changes are new.. There is approximately 2 mm of posterior impingement on the spinal canal on the right by the compressed vertebral body. No subluxation. There is compression fracture of the T6 vertebral body which is new since 01/14/2017. There is loss of vertebral body height by approximately 25%. There is no subluxation or impingement on the spinal canal. Posterior elements are grossly intact. No other new compression fractures are identified. Detail of the vertebral bodies and posterior elements from T9 through T12 is limited secondary to extensive motion artifact. There is a right convex thoracic scoliosis. IMPRESSION: 1. New compression fractures of the T1 and T6 vertebral bodies since 01/14/2017 as described above. No significant subluxation. Posterior elements are grossly intact. 2. Thoracic kyphoplasty changes at T5 as described slight posterior impingement on the right side of the spinal canal by the compressed vertebral body at T5, likely not acute. 3. Limited evaluation of the thoracic spine from T9 through T12 secondary to motion artifact. Assessment/Plan Assessment: Patient is 86-year-old female with past medical history significant for asthma, COPD, hypertension, hyperlipidemia, history of bradycardia status post pacemaker placement, chronic kidney cc, chronic lower back pain, osteoarthritis came with chief complaint of unwitnessed fall/syncopal episode this morning and needs telemetry monitoring for 23 hours to rule out arrhythmias and pacemaker interrogation. Problem list 1. Unwitnessed fall/syncopal episode 2. 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 History of hypertension 4. History of chronic back pain 5. New compression fracture with recent history of vertebral augmentation Plan 1. We will observe patient on telemetry floor for 23 hours and rule out any arrhythmia/we will request pacemaker interrogation 2. Cardiology consultation with Dr. Esposito in a.m. 3. We will hold her hydrochlorothiazide and we will restart after stabilization of her blood pressure as she was found to have orthostatic positive was a signs of admission 4. We'll continue her hydralazine for blood pressure 5. We will continue her home medications including Lyrica, statins and proton pump inhibitors. 6. We will provide patient with adequate analgesia 7. Patient can follow-up with interventional radiology as outpatient for vertebral augmentation if needed Patient is full code Pharmacological DVT prophylaxis Heart healthy diet As Ranked By This Provider Problem List: 1. Compression fracture of thoracic vertebra 2. Orthostatic hypotension Core Measures/Miscellaneous Acute Coronary Syndrome ACS Diagnosis: No Cerebrovascular Accident CVA/TIA Diagnosis: No Congestive Heart Failure CHF Diagnosis: No Venous Thromboembolism VTE Risk Factors: Age > 40 [facility] prophylaxis d/t: No contraindications No VTE Pharm Prophylaxis d/t: No contraindications VTE Diagnosis: No VTE Type: NONE VTE Confirmed by (Test): NONE Severe Sepsis Severe Sepsis Present: No Septic Shock Septic Shock Present: No Miscellaneous Documentation Attending Case Discussed With: MATI WISESUSANA Primary Care Physician: TYREL HARRIS APRN Patient sees these Specialists cardiology Level of Patient Care: Telemetry Resident Review Statement Resident Statement: examined this patient SUSANA THORNE 02/20/17 1439: General Information and HPI Allergies/Medications Home Med list Albuterol Sulfate 2.5 MG/3 ML (0.083 %) VIAL.NEB 1 Vial INH/TWIN Q6H PRN WHEEZING (Reported) Aspirin (Aspirin*) 81 MG TAB.CHEW 1 TAB PO DAILY PACEMAKER (Reported) Budesonide/Formoterol Fumarate (Symbicort 80-4.5 Mcg Inhaler) 80 MCG-4.5 MCG/ ACTUATION HFA.AER.AD 2 PUF INH BID BREATHING PROBLEMS (Reported) Cholecalciferol (Vitamin D3) 1,000 UNIT TABLET 1 TAB PO DAILY SUPPLEMENT ( Reported) Fenofibrate Nanocrystallized (Fenofibrate) 145 MG TABLET 1 TAB PO DAILY cholesterol (Reported) Fluoxetine HCl 20 MG CAPSULE 1 CAP PO DAILY MENTAL HEALTH (Reported) Hydralazine HCl 100 MG TABLET 1 TAB PO BID HTN (Reported) Hydrochlorothiazide 50 MG TABLET 1 TAB PO DAILY HTN (Reported) Hydromorphone HCl (Dilaudid) 2 MG TABLET 1 TAB PO Q4H PRN PAIN (Reported) Hydroxyzine HCl 25 MG TABLET 1 TAB PO TID PRN ITCHING (Reported) Lidocaine (Lidoderm) 5 % ADH..PATCH 1 PAT TOP DAILY PAIN (Reported) may wear up to 12 hours Lorazepam 1 MG TABLET 1 TAB PO BID PRN ANXIETY (Reported) Lovastatin 40 MG TABLET 1 TAB PO DAILY CHOLESTEROL (Reported) with food Multivitamin (Multi-Day Vitamins) 1 EACH TABLET 1 TAB PO DAILY SUPPLEMENT ( Reported) Omeprazole 20 MG TABLET.DR 1 TAB PO DAILY GI (Reported) Pregabalin (Lyrica) 50 MG CAPSULE 1 CAP PO BID PAIN (Reported) Tiotropium [place] (Spiriva) 18 MCG CAP.W.DEV 1 CAP INH DAILY RESPIRATORY ( Reported) Attending MD Review Statement Attending Statement Attending MD Statement: examined this patient, discuss w/resident/PA/TOOL AND DIE INSPECTOR, agreed w/resident/PA/TOOL AND DIE INSPECTOR, reviewed EMR data (avail), discussed with nursing, discussed with case mgmt Attending Assessment/Plan: Please see my separate attending note for more details.
--- NOTE | 2017-02-11 18:06 | PN- Att Addend ---
Attending Addendum Attending Brief Note Laboratory Tests 02/11/17 1510: Urine Opiates Screen 1162.00, Methadone Screen < 40, Barbiturate Screen < 60, Ur Phencyclidine Scrn < 6.00, Amphetamines Screen < 100, U Benzodiazepines Scrn < 85, Urine Cocaine Screen < 50, Urine Cannabis Screen < 5.00, Urine Color YEL, Urine Clarity HAZY H, Urine pH 7.0, Ur Specific [place] 1.015, Urine Protein 30 H, Urine Ketones NEG, Urine Nitrite POS H, Urine Bilirubin NEG, Urine Urobilinogen 0.2, Ur Leukocyte Esterase MOD H, Ur Microscopic SEDIMENT EXAMINED , Urine RBC RARE, Urine WBC 5-10 H, Ur Epithelial Cells RARE, Urine Bacteria MANY H, Hyaline Casts RARE H, Urine Hemoglobin NEG, Urine Glucose NEG 02/11/17 1505: Anion Gap 12, Estimated GFR 39 L, BUN/Creatinine Ratio 24.6, Glucose 90, Calcium 9.8, Magnesium 2.0, Total Bilirubin 0.8, AST 51 H, ALT 49, Alkaline Phosphatase 99, Troponin I 0.03, Total Protein 7.5, Albumin 4.2, Globulin 3.3, Albumin/Globulin Ratio 1.3 02/11/17 1335: PT 11.4, INR 1.09, APTT 32, CBC w Diff NO MAN DIFF REQ, RBC 4.68, MCV 89.5, MCH 29.1, RDW 14.7 H, MPV 9.4, Gran % 66.8, Lymphocytes % 21.7, Monocytes % 7.7, Eosinophils % 3.2, Basophils % 0.6, Absolute Granulocytes 5.7, Absolute Lymphocytes 1.9, Absolute Monocytes 0.7 H, Absolute Eosinophils 0.3, Absolute Basophils 0, PUBS MCHC 32.5 L Vital Signs Date Time Temp Pulse Resp B/P B/P Pulse O2 O2 Flow FiO2 Mean Ox Delivery Rate 02/11 1727 60 60 175/73 93 02/11 1530 62 18 168/77 95 Room Air 02/11 1357 95 Room Air 02/11 1339 98.2 65 18 21602/11 1326 98.2 65 18 95 Room Air 86-year-old female with past medical history of recent mechanical fall for which she was admitted on January 15 to the hospital and was found to have a T5 compression fracture for which she underwent vertebral augmentation and was also found to have some junctional bradycardia and possible A. fib for which he underwent pacemaker placement and was discharged on January 23. Patient admitted with unwitnessed fall this morning. Patient lives with her granddaughter and was going out shopping with her. Granddaughter went out to get the car and when she came back to pick her up she found her on the floor. Patient was brought to the emergency room and was found to be orthostatic positive on blood pressure check. Her systolic blood pressure on lying down was 179 and dropped down to 102 on standing up. Patient takes Dilaudid at home for pain control and she says she takes usually 1 pill at night. Patient also is on hydrochlorothiazide 50 mg daily and apparently her dose of hydrochlorothiazide was increased recently. Patient also found to have compression fracture of T1and T6. Patient will be placed in observation status secondary to her syncopal episode and we will get cardiology consult and will get pacemaker interrogation. We will hold her hydrochlorothiazide and will give IV fluids and pain management for pain control. If her pain is not well controlled she will be referred to interventional radiology as an outpatient for possible vertebral augmentation. We will also check her vitamin D level and we will monitor her on telemetry. Discussed with patient the care plan.
[2017-02-11 19:25] VITALS: BP 168/70
[2017-02-11 20:16] VITALS: BP 162/70
[2017-02-11 22:24] VITALS: BP 118/70
[2017-02-12 01:20] VITALS: BP 160/72
--- NOTE | 2017-02-12 07:42 | PN- Housestaff ---
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 Reports back pain under control on current regimen. Denies any chest pain, dyspnea, palpitations, lightheadedness, dizziness, abdominal pain, n/v/c/d. No acute events reported overnight. Review of Systems Constitutional: Reports: see HPI. Objective Last 24 Hrs of Vital Signs/I&O Vital Signs Date Time Temp Pulse Resp B/P B/P Pulse O2 O2 Flow FiO2 Mean Ox Delivery Rate 02/12 0120 160/72 02/11 2224 97.9 62 18 118/70 95 Room Air 02/11 2210 62 162/70 02/11 2016 62 162/70 02/11 1925 97.5 60 18 168/70 95 Room Air 02/11 1727 98.0 60 18 175/73 94 02/11 1530 62 18 168/77 95 Room Air 02/11 1357 95 Room Air 02/11 1339 98.2 65 18 216/100 02/11 1326 98.2 65 18 216/100 95 Room Air Intake & Output 02/12 0800 02/12 0000 02/11 1600 Intake Total 860 1750 Output Total 425 325 Balance 435 1425 Intake, IV 620 1150 Intake, Oral 240 600 Output, Urine 425 325 Patient 81.647 kg 81.647 kg Weight Weight Estimated Measurement Method Physical Exam General Appearance: Alert, Oriented X3, Cooperative, No Acute Distress Other Physical Findings: Skin No Rashes. Skin Temp/Moisture Exam: Warm/Dry HEENT Trauma: left parietal region has scalp laceration that has five yanet, placed, eyes not scaly today, PERRLA, EOMI, Mucous Membr. moist/pink Neck Supple, No JVD Lymphatic no cervical lymphadenopathy Cardiovascular Regular Rate, Normal S1, Normal S2, systolic Murmur + Lungs Clear to Auscultation, Normal Air Movement Abdomen Normal Bowel Sounds, Soft, No Tenderness Neurological Normal Gait, grossly intact Back Tenderness over lower back L>R, spine tenderness at multiple levels of spine Extremities No Clubbing, No Cyanosis, No Edema, Normal Pulses Current Medications: Current Medications Sig/Tricia Start time Last Medication Dose Route Stop Time Status Admin Acetaminophen 0 .STK-MED ONE 05/29 1834 DC IV Acetaminophen 1,000 MG ONCE ONE 02/11 1830 DC 02/11 N/A 1 UNIT IV 02/11 1844 1833 Acetaminophen 650 MG Q6P PRN 02/11 1745 AC PO Albuterol Sulfate 3 ML Q6P PRN 02/11 1745 AC INH Aspirin 81 MG DAILY 02/12 1000 AC PO Atorvastatin Calcium 10 MG 1700 02/12 1700 AC PO Budesonide/ 2 PUF BID 02/11 2200 AC 02/11 Formoterol Fumarate INH 2216 Fenofibrate 145 MG DAILY 02/12 1000 AC PO Fluoxetine HCl 20 MG DAILY 02/12 1000 AC PO Heparin Sodium 5,000 UNIT Q8 02/11 1741 AC 02/12 (Porcine) SC 0624 Hydralazine HCl 100 MG BID 02/11 2200 AC 02/11 PO 2210 Hydralazine HCl 0 .STK-MED ONE 02/11 1342 DC .ROUTE Hydralazine HCl 10 MG ONCE ONE 02/11 1330 DC 02/11 IV 02/11 1331 1339 Lorazepam 1 MG BID PRN 02/11 1800 AC 02/11 PO 2246 Morphine Sulfate 0.5 MG ONCE ONE 02/12 0100 DC 02/12 IV 02/12 0101 0119 Omeprazole 20 MG DAILY AC 02/12 0700 AC 02/12 PO 0624 Oxycodone HCl 5 MG ONCE PRN 02/11 2230 AC 02/11 PO 2244 Oxycodone/ 1 TAB Q6P PRN 02/11 1745 AC 02/11 Acetaminophen PO 1945 Oxycodone/ 2 TAB Q6P PRN 02/11 1745 AC 02/12 Acetaminophen PO 0624 Pregabalin 50 MG BID 02/11 2200 AC 02/11 PO 2216 Sodium Chloride 1,000 ML Q13H 02/11 1830 AC 02/11 IV 1945 Sodium Chloride 1,000 ML BOLUS ONE 02/11 1615 DC 02/11 IV 02/11 1714 1618 Tiotropium [place] 1 PUF DAILY 02/11 1747 AC 02/11 INH 2216 Last 24 Hrs of Lab/Tylor Results Last 24 Hrs of Labs/Mics: Laboratory Tests 02/12/17 0630: Sodium Pending, Potassium Pending, Chloride Pending, Carbon Dioxide Pending, Anion Gap Pending, BUN Pending, Creatinine Pending, BUN/Creatinine Ratio Pending , CBC w Diff Pending, WBC Pending, RBC Pending, Hgb Pending, Hct Pending, MCV Pending, MCH Pending, RDW Pending, Plt Count Pending, MPV Pending, PUBS MCHC Pending 02/12/17 0125: Troponin I 0.05 02/11/17 1510: Urine Opiates Screen 1162.00, Methadone Screen < 40, Barbiturate Screen < 60, Ur Phencyclidine Scrn < 6.00, Amphetamines Screen < 100, U Benzodiazepines Scrn < 85, Urine Cocaine Screen < 50, Urine Cannabis Screen < 5.00, Urine Color YEL, Urine Clarity HAZY H, Urine pH 7.0, Ur Specific [place] 1.015, Urine Protein 30 H, Urine Ketones NEG, Urine Nitrite POS H, Urine Bilirubin NEG, Urine Urobilinogen 0.2, Ur Leukocyte Esterase MOD H, Ur Microscopic SEDIMENT EXAMINED , Urine RBC RARE, Urine WBC 5-10 H, Ur Epithelial Cells RARE, Urine Bacteria MANY H, Hyaline Casts RARE H, Urine Hemoglobin NEG, Urine Glucose NEG 02/11/17 1505: Anion Gap 12, Estimated GFR 39 L, BUN/Creatinine Ratio 24.6, Glucose 90, Calcium 9.8, Magnesium 2.0, Total Bilirubin 0.8, AST 51 H, ALT 49, Alkaline Phosphatase 99, Troponin I 0.03, Total Protein 7.5, Albumin 4.2, Globulin 3.3, Albumin/Globulin Ratio 1.3, 25-OH Vitamin D Total 38.6 02/11/17 1335: PT 11.4, INR 1.09, APTT 32, CBC w Diff NO MAN DIFF REQ, RBC 4.68, MCV 89.5, MCH 29.1, RDW 14.7 H, MPV 9.4, Gran % 66.8, Lymphocytes % 21.7, Monocytes % 7.7, Eosinophils % 3.2, Basophils % 0.6, Absolute Granulocytes 5.7, Absolute Lymphocytes 1.9, Absolute Monocytes 0.7 H, Absolute Eosinophils 0.3, Absolute Basophils 0, PUBS MCHC 32.5 L Assessment/Plan Assessment: Ms. Branch is 86 year old female with past medical history significant for diabetes mellitus, asthma, COPD not on home oxygen, hypertension, hyperlipidemia , bradycardia, chronic kidney disease, chronic lower back pain, chronic left hydronephrosis, osteoarthritis, who presented to ED after a fall. Patient is being observed for the following problems: # Fall 2/2 most likely vasovagal etiology Most likely 2/2 dehydration. Orthostatic BP was positive on admission. * Cont tele monitoring for now to r/o arrhythmias * Vitals per protocol * PT evaluation * Cardio consult for pacemaker interrogation # New compression fractures of the T1 and T6 Acute on chronic back pain most likely 2/2 new compression fractures of the T1 and T6 vertebral bodies as noted on CT. Previously in early January MRI showed T5 compression fracture with marrow edema, and multi level lumbar degenerative diseage with bulging of discs. s/p vertebral augmentation (01/22). Patient takes Dilaudid at home for pain control and she says she takes usually 1 pill at night. * Adequate pain control with narcotics as needed * Consider consulting IR for possible vertebroplasty #History of junctional bradycardia, s/p pacemaker placement -S/p pacemaker placement in early January 2017. Currently in sinus rhythm. * Follow up on interrogation of pacemaker * Continuous cardiac monitoring #HTN/HLD Her systolic blood pressure on lying down was 179 and dropped down to 102 on standing up. * Holding diuretics for now (per pateint HCTZ was recently increaed to 50mg QD) * Gentle IV hydration * Cont home med hydralazine 100mg BID * Avoid any heart rate lowering drugs * Continue fenofibrate (for lyperlipidemia) * Cardiology consultation #Acute kidney injury on chronic kidney disease * Check BEP daily, trend Cr - stable * Avoid nephrogenic medication including lasix for now #Diabetes mellitus * Accu-Chek 3 times a day * NovoLog sliding scale 3 times a day #Asthma and COPD on inhalers * TRC * Continue home inhalers #Constipation * Continue Miralax and Senokot S with parameters to hold for loose stools. - Diet heart healthy - Moderate pain pathway - DVT prophylaxis - ALPs - Code full Problem List: 1. Compression fracture of thoracic vertebra Pain Ratin Pain Location: Back Pain Goal: Pain 7 or less Pain Plan: Moderate pain pathway Tomorrow's Labs & Rationales: None
[2017-02-12 08:00] VITALS: BP 150/60
[2017-02-12 08:01] LABS: ABSOLUTE BASOPHIL COUNT 0 /CUMM (0.0-0.2); ABSOLUTE EOSINOPHIL COUNT 0.3 /CUMM (0.0-0.7); ABSOLUTE GRANULOCYTE CT 5.5 /CUMM (1.4-6.5); ABSOLUTE LYMPH COUNT 1.1 /CUMM (1.2-3.4); ABSOLUTE MONOCYTE COUNT 0.6 /CUMM (0.10-0.60); BASOPHIL % 0.4 % (0.0-2.0); EOSINOPHIL % 3.9 % (0-5); GRANULOCYTE % 73.4 % (42.2-75.2); MEAN CORPUSCULAR HGB 29.6 PG (27.0-31.0); MEAN CORPUSCULAR HGB CONC 33.1 G/DL (33.0-37.0); MEAN CORPUSCULAR VOLUME 89.5 FL (81.0-99.0); MEAN PLATELET VOLUME 9.6 FL (7.4-10.4); PLATELET COUNT 203 /CUMM (130-400); RBC DISTRIBUTION WIDTH 14.5 % (11.5-14.5); RED BLOOD CELL CT 3.53 /CUMM (4.20-5.40); WHITE BLOOD CELL COUNT 7.5 /CUMM (4.8-10.8)
[2017-02-12 08:18] LABS: HEMATOCRIT 31.6 % (37-47)
[2017-02-12 12:41] VITALS: BP 132/66
--- NOTE | 2017-02-12 14:44 | Patient Discharge Instructions ---
Discharge Instructions General Discharge Information You were seen/treated for: Syncope Special Instructions: Please follow up with accounts collector Dr. Esposito within 1 week of discharge. Please follow up with your primary care physician and interventional radiologist Dr. Portillo within 1-2 weeks of discharge. Diet Continue normal diet: Yes Activity Full Activity/No Limits: Yes (as tolerated) Acute Coronary Syndrome Inclusion Criteria At DC or during hospital stay patient has or had the following: ACS DIAGNOSIS No Discharge Core Measures Meds if any: Prescribed or Continued at Discharge Meds if any: NOT Prescribed or Continued at Discharge Congestive Heart Failure Inclusion Criteria At DC or during hospital stay patient has or had the following: CHF DIAGNOSIS No Discharge Core Measures Meds if any: Prescribed or Continued at Discharge Meds if any: NOT Prescribed or Continued at Discharge Cerebrovascular accident Inclusion Criteria At DC or during hospital stay patient has or had the following: CVA/TIA Diagnosis No Discharge Core Measures Meds if any: Prescribed or Continued at Discharge Meds if any: NOT Prescribed or Continued at Discharge Venous thromboembolism Inclusion Criteria VTE Diagnosis No VTE Type NONE VTE Confirmed by (Test) NONE Discharge Core Measures - Per Current guidelines, there needs to be overlap - treatment for the first 5 days of Warfarin therapy. - If discharged on Warfarin prior to 5 days of - overlap therapy, the patient will need to be - assessed for post discharge needs including - *Post discharge parental anticoagulation - *Warfarin and/or parental anticoagulation education - *Follow up date to check INR post discharge At least 5 days overlap therapy as Inpatient No Meds if any: Prescribed or Continued at Discharge Note: Overlap Therapy is Warfarin and Anticoagulant Meds if any: NOT Prescribed or Continued at Discharge
--- NOTE | 2017-02-12 15:23 | Cons- Cardiology ---
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 Patient was recently hospitalized from 01/15/17 - 01/23/17 a mechanical fall for which she was found to be bradycardiac with a junctional heart rhythm. CT/MRI imaging was remarkable for a T5 compression fracture for which she successfully underwent vertebral augmentation. Patient was placed with a pacemaker during this hospitalization resulting in improvement of her heart rate and symptoms of lightheadedness/dizziness. Patient was out shopping with her grandaughter this past Saturday when she left the store and sent her to go get the car. She was standing at the curb waiting to be picked up when she suddenly "passed out". She denies any preceeding lightheadedness/dizzyness, chest pain/discomfort, palpitations, shortness of breath, nausea, heart burn, blurred/double vision. She reports waking up a short time later with new posterior head pain and otherwise denies any urinary/bowel incontinence. She reports compliance with her medications but does admit to poor oral intake, specifically with fluids. Recent echocardiogram on 08/26/16 demonstrated a normal left ventricular size with mild LVH and hyperdynamica systolic function without any obvious regional wall motion abnormalities. EF estimated at 75%. Past Medical History - hypertension, hyperlipidemia, junctional bradycardia s/p PM, CKD, chronic low back pain, osteoarthritis, asthma, COPD not on home oxygen, chronic left hydronephrosis, NIDDM Allergies/Medications Allergies: Coded Allergies: NO KNOWN ALLERGIES (12/24/12) Home Med List: Albuterol Sulfate 2.5 MG/3 ML (0.083 %) VIAL.NEB 1 Vial INH/TWIN Q6H PRN WHEEZING (Reported) Aspirin (Aspirin*) 81 MG TAB.CHEW 1 TAB PO DAILY PACEMAKER (Reported) Budesonide/Formoterol Fumarate (Symbicort 80-4.5 Mcg Inhaler) 80 MCG-4.5 MCG/ ACTUATION HFA.AER.AD 2 PUF INH BID BREATHING PROBLEMS (Reported) Cholecalciferol (Vitamin D3) 1,000 UNIT TABLET 1 TAB PO DAILY SUPPLEMENT ( Reported) Fenofibrate Nanocrystallized (Fenofibrate) 145 MG TABLET 1 TAB PO DAILY cholesterol (Reported) Fluoxetine HCl 20 MG CAPSULE 1 CAP PO DAILY MENTAL HEALTH (Reported) Hydralazine HCl 100 MG TABLET 1 TAB PO BID HTN (Reported) Hydrochlorothiazide 50 MG TABLET 1 TAB PO DAILY HTN (Reported) Hydromorphone HCl (Dilaudid) 2 MG TABLET 1 TAB PO Q4H PRN PAIN (Reported) Hydroxyzine HCl 25 MG TABLET 1 TAB PO TID PRN ITCHING (Reported) Lidocaine (Lidoderm) 5 % ADH..PATCH 1 PAT TOP DAILY PAIN (Reported) may wear up to 12 hours Lorazepam 1 MG TABLET 1 TAB PO BID PRN ANXIETY (Reported) Lovastatin 40 MG TABLET 1 TAB PO DAILY CHOLESTEROL (Reported) with food Multivitamin (Multi-Day Vitamins) 1 EACH TABLET 1 TAB PO DAILY SUPPLEMENT ( Reported) Omeprazole 20 MG TABLET.DR 1 TAB PO DAILY GI (Reported) Pregabalin (Lyrica) 50 MG CAPSULE 1 CAP PO BID PAIN (Reported) Tiotropium [place] (Spiriva) 18 MCG CAP.W.DEV 1 CAP INH DAILY RESPIRATORY ( Reported) Current Medications: Current Medications Sig/Tricia Start time Last Medication Dose Route Stop Time Status Admin Acetaminophen 0 .STK-MED ONE 02/11 1834 DC IV Acetaminophen 1,000 MG ONCE ONE 02/11 183 DC 02/11 N/A 1 UNIT IV 02/11 184 1833 Acetaminophen 650 MG Q6P PRN 02/11 1745 AC PO Albuterol Sulfate 3 ML Q6P PRN 02/11 1745 AC INH Aspirin 81 MG DAILY 02/12 1000 AC 02/12 PO 1022 Atorvastatin Calcium 10 MG 1700 02/12 1700 AC PO Budesonide/ 2 PUF BID 02/11 2200 AC 02/12 Formoterol Fumarate INH 1018 Fenofibrate 145 MG DAILY 02/12 1000 AC 02/12 PO 1022 Fluoxetine HCl 20 MG DAILY 02/12 1000 AC 02/12 PO 1022 Heparin Sodium 5,000 UNIT Q8 02/11 1741 AC 02/12 (Porcine) SC 1339 Hydralazine HCl 100 MG BID 02/11 2200 AC 02/12 PO 1021 Hydromorphone HCl 1 MG Q4P PRN 02/12 0930 AC PO Lorazepam 1 MG BID PRN 02/11 1800 AC 02/11 PO 2246 Morphine Sulfate 0.5 MG ONCE ONE 02/12 0100 DC 02/12 IV 02/12 0101 0119 Omeprazole 20 MG DAILY AC 02/12 0700 AC 02/12 PO 0624 Oxycodone HCl 5 MG ONCE PRN 02/11 2230 DC 02/11 PO 2244 Oxycodone/ 1 TAB Q6P PRN 02/11 1745 AC 02/12 Acetaminophen PO 1200 Oxycodone/ 2 TAB Q6P PRN 02/11 1745 AC 02/12 Acetaminophen PO 0624 Pregabalin 50 MG BID 02/11 2200 AC 02/12 PO 1023 Sodium Chloride 1,000 ML Q13H 02/11 1830 AC 02/12 IV 1027 Sodium Chloride 1,000 ML BOLUS ONE 02/11 1615 DC 02/11 IV 02/11 1714 1618 Tiotropium [place] 1 PUF DAILY 02/11 1747 AC 02/12 INH 1017 Review of Systems Review of Systems Constitutional: Reports: see HPI. Past History Travel History Traveled to [place] past 21 day No Medical History Blood Transfusion Hx: Yes Neurological: NONE EENT: NONE Cardiovascular: hypertension, hyperlipidemia, pacemaker Respiratory: asthma, COPD Gastrointestinal: NONE Hepatic: NONE Renal: RENAL MASS HYDRONEPHROSIS OBSTRUCTING CALUCULUS CHRONIC KIDNEY DISEASE Musculoskeletal: LOW BACK PAIN MULTIPLE FALLS OSTEOARTHRITIS Psychiatric: anxiety, MAJOR DEPRESSIVE DISORDER Endocrine: DIABETES 2 Blood Disorders: NONE Cancer(s): NONE ASSESSMENT COUNSELOR/Reproductive: NONE Surgical History Surgical History: spinal fusion Family History Relations & Conditions If Any: Relation not specified for: *No pertinent family history Psychosocial History Where Do You Live? Home Services at Home: Nursing Smoking Status: Never Smoked ETOH Use: denies use Functional Ability ADLs Needs Assist: dressing, eating, toileting, bathing. Ambulation: walker IADLs Needs Assist: shopping, housework, finances, food prep, telephone, transportation, medication admin. Exam & Diagnostic Data Vital Signs and I&O Vital Signs Date Time Temp Pulse Resp B/P B/P Pulse O2 O2 Flow FiO2 Mean Ox Delivery Rate 02/12 1241 63 132/66 02/12 1021 62 190/62 02/12 0800 92 Room Air Room Air 02/12 0800 98.5 62 20 150/60 97 Room Air 02/12 0120 160/72 02/11 2224 97.9 62 18 118/70 95 Room Air 02/11 2210 62 162/70 02/12 2016 62 162/70 02/11 1925 97.5 60 18 168/70 95 Room Air 02/11 1727 98.0 60 18 175/73 94 02/11 1530 62 18 168/77 95 Room Air Intake & Output 02/12 1600 02/12 0800 02/12 0000 02/11 1600 02/11 0800 02/11 0000 Intake Total 5667 470 3071 Output Total 425 325 Balance 1574 003 2129 Intake, IV 322 946 8519 Intake, Oral 480 240 600 Output, Urine 425 325 Patient 81.647 kg 81.647 kg Weight Weight Estimated Measurement Method Physical Exam: General- well developed, obese elderly woman in no acute distress HEENT- 3.5" hematoma on posterior scalp with associated scabbing and scant bloody drainage, EOMI, PERRL, anicteric sclera, moist mucous membranes Neck- Supple, no JVD, no carotid bruits CVS- 2/6 systolic murmur, RRR Resp- CTA bilaterally GI- Soft, nontender, nondistended, bowel sounds intact Neuro- Awake and alert, oriented to person/place/time, CN II - XII grossly intact Ext- normal pulses, no cyanosis/clubbing/edema Assessment/Plan Assessment/Plan * Patient with recent hospitalization for mechanical fall and history of junctional bradycardion s/p pacemaker seen for evaluation of syncope. Patient denies any precedding aura/symptoms or any post-ictal state. Vital signs upon initial assessment demonstrated profound orthostasis. CT Head was negative for any acute intracranial pathology, but did identify two new compression fratures of T1/T6. Telemetry monitoring demonstrates a paced rhythm, interrogation of the pacemaker currently pending. * Patient admits to poor oral intake of fluids while taking her home medications that include hydrochlorothiazide 50mg daily. She denies any symptoms suggestive of persistent or new cardiovascular disease. Her syncope may be due to dehydration given this information and her profound orthostasis. Encourage oral intake and monitor for further hemodynamic instability. Follow up pacemaker interrogation and pending negative results patient may be discharged to home with outpatient follow up. Continue to hold lasix. * Continue hydralazine. Consult Acknowledgment - Thank you for your consult request. SIDNEY WISE,EMMY [place] 02/12/17 3689: Assessment/Plan Assessment/Plan This patient presented to the hospital after a syncopal episode in the setting of severe orthostasis. Her HCTZ is being held which is appropriate. At present she is also 100% paced. We will nevertheless have her pacer interogated to ensure that there were no dysrhythmias of the heart or times when the pacer did not capture. The patient, at present has severe abdominal discomfort but did move her bowels with difficulty. If this is a recurrent problem then I would check a KUB. Although she carries a history of diverticulosis, there is no current fever or increased WBC to indicate diverticulitis. No diarrhea has been found, thus far, that would be a source of dehydration. An obstructive process cannot be excluded considering her prior abdominal CT results. For now continue to monitor on telemetry and continue hydralazine as previously prescribed. Consult Acknowledgment - Thank you for your consult request.
[2017-02-12 15:30] VITALS: BP 158/80
[2017-02-13 02:42] VITALS: BP 152/76
--- NOTE | 2017-02-13 02:46 | Event Note ---
Event Note Event Note: Pt has tmax 102 around 2:45 AM. Blood cx, sputum cx UA, urine cx ordered and CXR ordered. Hold off on abx and monitor if pt spikes another temp.
--- NOTE | 2017-02-13 06:41 | PN- Housestaff ---
ANGIE WISE,FLORA 02/13/17 0640: Subjective Follow-up For: Unwitnessed fall/syncopal episode Chronic back pain Tele-Events Since Last Visit: S-pacing, HR 57-76 Subjective: Patient seen and examined at bedside. Patient complains of difficulty breathing this morning. She had tmax 102 around 2:45 AM. Otherwise denies URI or urinary sxs. Reports chronic back pain under control on current regimen. Denies any fever, chills, chest pain, palpitations, lightheadedness, dizziness, abdominal pain, n/v/c/d. Review of Systems Constitutional: Reports: see HPI. Objective Last 24 Hrs of Vital Signs/I&O Vital Signs Date Time Temp Pulse Resp B/P B/P Pulse O2 O2 Flow FiO2 Mean Ox Delivery Rate 02/13 0423 97.6 02/13 0353 97.6 02/13 0254 102.1 02/13 0242 102.1 70 22 152/76 96 Room Air 02/13 0000 96 Room Air 02/12 2115 168/70 02/12 1600 Room Air 02/12 1530 97.9 88 16 158/80 95 Room Air 02/12 1241 63 132/66 02/12 1021 62 190/62 Intake & Output 02/13 1600 02/13 0800 02/13 0000 Intake Total 800 840 Output Total 350 200 Balance 450 640 Intake, IV 600 600 Intake, Oral 200 240 Number 1 Bowel Movements Output, Urine 350 200 Physical Exam General Appearance: Alert, Oriented X3, Cooperative, No Acute Distress Other Physical Findings: Skin No Rashes. Skin Temp/Moisture Exam: Warm/Dry HEENT Trauma: left parietal region has scalp laceration that has five yanet, placed, eyes not scaly today, PERRLA, EOMI, Mucous Membr. moist/pink Neck Supple, No JVD Lymphatic no cervical lymphadenopathy Cardiovascular Regular Rate, Normal S1, Normal S2, systolic Murmur + Lungs Clear to Auscultation, Normal Air Movement Abdomen Normal Bowel Sounds, Soft, No Tenderness Neurological Normal Gait, grossly intact Back Tenderness over lower back L>R, spine tenderness at multiple levels of spine Extremities No Clubbing, No Cyanosis, No Edema, Normal Pulses Current Medications: Current Medications Sig/Tricia Start time Last Medication Dose Route Stop Time Status Admin Acetaminophen 650 MG Q6P PRN 02/11 1745 AC 02/13 PO 0254 Albuterol Sulfate 3 ML Q6P PRN 02/11 1745 AC INH Aspirin 81 MG DAILY 02/12 1000 AC 02/12 PO 1022 Atorvastatin Calcium 10 MG 1700 02/12 1700 AC 02/12 PO 1744 Budesonide/ 2 PUF BID 02/11 2200 AC 02/12 Formoterol Fumarate INH 2115 Fenofibrate 145 MG DAILY 02/12 1000 AC 02/12 PO 1022 Fluoxetine HCl 20 MG DAILY 02/12 1000 AC 02/12 PO 1022 Heparin Sodium 5,000 UNIT Q8 02/11 1741 AC 02/13 (Porcine) SC 0557 Hydralazine HCl 100 MG BID 02/11 2200 AC 02/12 PO 2115 Hydromorphone HCl 1 MG Q4P PRN 02/12 0930 AC 02/13 PO 0229 Lorazepam 1 MG BID PRN 02/11 1800 AC 02/13 PO 0016 Omeprazole 20 MG DAILY AC 02/12 0700 AC 02/13 PO 0558 Oxycodone HCl 5 MG ONCE PRN 02/11 2230 DC 02/11 PO 2244 Oxycodone/ 1 TAB Q6P PRN 02/11 1745 AC 02/12 Acetaminophen PO 1200 Oxycodone/ 2 TAB Q6P PRN 02/11 1745 AC 02/12 Acetaminophen PO 1747 Potassium Chloride 40 MEQ ONCE ONE 02/12 2100 DC 02/13 PO 02/12 2101 0104 Potassium Chloride 40 MEQ ONCE ONE 02/12 1815 DC 02/12 PO 02/12 1816 2115 Pregabalin 50 MG BID 02/11 2200 AC 02/12 PO 2115 Sodium Chloride 1,000 ML Q13H 02/11 1830 AC 02/12 IV 2229 Tiotropium [place] 1 PUF DAILY 02/11 1747 AC 02/12 INH 1017 Last 24 Hrs of Lab/[place] Results Last 24 Hrs of Labs/Mics: Laboratory Tests 02/13/17 0610: Sodium Pending, Potassium Pending, Chloride Pending, Carbon Dioxide Pending, Anion Gap Pending, BUN Pending, Creatinine Pending, BUN/Creatinine Ratio Pending , Magnesium Pending, CBC w Diff Pending, WBC Pending, RBC Pending, Hgb Pending, Hct Pending, MCV Pending, MCH Pending, RDW Pending, Plt Count Pending, MPV Pending, PUBS MCHC Pending 02/13/17 0300: Urinalysis LIGHT H, Urine Color YEL, Urine Clarity CLDY H, Urine pH 6.0, Ur Specific [place] 1.025, Urine Protein 100 H, Urine Ketones NEG, Urine Nitrite NEG, Urine Bilirubin NEG, Urine Urobilinogen 1.0, Ur Leukocyte Esterase LARGE H , Ur Microscopic SEDIMENT EXAMINED, Urine RBC 1-3, Urine WBC > 75 H, Ur Epithelial Cells MOD H, Urine Bacteria PACKD H, Urine Mucus FEW, Urine Hemoglobin TRACE-INTACT, Urine Glucose NEG Microbiology 02/13 315 BLOOD: Blood Culture - RECD 02/13 300 URINE ROUT: Urine Culture - RECD 02/13 300 BLOOD: Blood Culture - RECD 02/13 245 LOWER RESP: Respiratory Culture - COLB 02/13 245 LOWER RESP: Gram Stain - COLB Assessment/Plan Assessment: Ms. Branch is 86 year old female with past medical history significant for diabetes mellitus, asthma, COPD not on home oxygen, hypertension, hyperlipidemia , bradycardia, chronic kidney disease, chronic lower back pain, chronic left hydronephrosis, osteoarthritis, who presented to ED after a fall. Patient is admitted to telemetery unit for the following problems: # Syncope 2/2 orthostatic hypotension Most likely due to dehydration. Orthostatic BP was positive on admission. * Cont tele monitoring for now to r/o arrhythmias * Vitals per protocol * PT evaluation * Appreciate cardio recs * Follow up on pacemaker interrogation - unremarkable # Severe sepsis most likely 2/2 UTI Patient spiked a fever of 102 last night. WBC and lactic acid elevated at 21 and 2.7 respectively. UA suspiscious for UTI. CXR shows no acute cardiopulmonary findings * Follow pancultures * Start IV CTX * Cont to monitor for signs of inection * Trend lactic acid # CHF exacerbation Satting well on RA but patient is complaining of difficulty breathing. Significant crackles on lung exam. No edema in legs. Most likely 2/2 CHF exacerbation as diruetics have been held. There is also a component of anxiety * Discontinue IVF * Give one time IV Lasix 40mg * Follow CXR - no acute cardiopulmonary findings * Appreciate cardio recs # HERNÁN Patient's creatinine bumped up to 1.7 this morning. Most likely 2/2 cardiorenal syndrome. There may be a component of her history of hydroneprhosis also. * Check renal fx daily * Discontinue IVF for now and give one time IV Lasix * Avoid nephrotoxins # New compression fractures of the T1 and T6 Acute on chronic back pain most likely 2/2 new compression fractures of the T1 and T6 vertebral bodies as noted on CT. Previously in early January MRI showed T5 compression fracture with marrow edema, and multi level lumbar degenerative diseage with bulging of discs. s/p vertebral augmentation (01/22). Patient takes Dilaudid at home for pain control and she says she takes usually 1 pill at night. * Adequate pain control with narcotics as needed * Consider consulting IR for possible vertebroplasty #History of junctional bradycardia, s/p pacemaker placement -S/p pacemaker placement in early January 2017. Currently in sinus rhythm. * Follow up on interrogation of pacemaker * Continuous cardiac monitoring #HTN/HLD Her systolic blood pressure on lying down was 179 and dropped down to 102 on standing up. * Holding diuretics for now (per pateint HCTZ was recently increaed to 50mg QD) * Gentle IV hydration * Cont home med hydralazine 100mg BID * Avoid any heart rate lowering drugs * Continue fenofibrate (for lyperlipidemia) * Cardiology consultation #Acute kidney injury on chronic kidney disease * Check BEP daily, trend Cr - stable * Avoid nephrogenic medication including lasix for now #Diabetes mellitus * Accu-Chek 3 times a day * NovoLog sliding scale 3 times a day #Asthma and COPD on inhalers * TRC * Continue home inhalers #Constipation * Continue Miralax and Senokot S with parameters to hold for loose stools. - Diet heart healthy - Moderate pain pathway - DVT prophylaxis - ALPs - Code full Problem List: 1. Compression fracture of thoracic vertebra 2. Orthostatic hypotension 3. Chronic low back pain 4. S/P placement of cardiac pacemaker 5. Scalp laceration 6. Constipation 7. Atrial fibrillation 8. CKD (chronic kidney disease) 9. Diabetes mellitus Pain Ratin Pain Location: Back Pain Goal: Pain 7 or less Pain Plan: Moderate pathway Tomorrow's Labs & Rationales: None ANIKA CARRANZA MD 02/13/17 1214: Attending Review Statement Attending Statement Attending MD Statement: examined this patient, discuss w/resident/PA/HYDRAULIC BLOCKER, agreed w/resident/PA/HYDRAULIC BLOCKER, reviewed EMR data (avail), discussed with nursing, discussed with case mgmt, reviewed images, amended to note Attending Assessment/Plan: The patient was seen and discussed with house staff. Pacer was interrogated and functioning, however the patient developed tachycardia, dyspnea, rales and fever to 101 last evening. Due to events, converted to full admission. WBC elevated meeting sepsis criteria with pyuria suggestive of UTI as source. Received furosemide IV x 1 dose, IV Ceftriaxone begun and will await cultures and cardiology follow-up. Renal ultrasound and follow renal function closely.
[2017-02-13 08:01] LABS: ABSOLUTE BASOPHIL COUNT 0 /CUMM (0.0-0.2); ABSOLUTE EOSINOPHIL COUNT 0 /CUMM (0.0-0.7); ABSOLUTE LYMPH COUNT 1.1 /CUMM (1.2-3.4); BASOPHIL % 0 % (0.0-2.0); GRANULOCYTE % 86.3 % (42.2-75.2); HEMATOCRIT 35.8 % (37-47); MEAN CORPUSCULAR VOLUME 89.1 FL (81.0-99.0); RBC DISTRIBUTION WIDTH 14.6 % (11.5-14.5)
[2017-02-13 08:19] VITALS: BP 120/58
[2017-02-13 08:31] LABS: ABSOLUTE GRANULOCYTE CT 18.1 /CUMM (1.4-6.5); ABSOLUTE MONOCYTE COUNT 1.7 /CUMM (0.10-0.60); EOSINOPHIL % 0.1 % (0-5); MEAN CORPUSCULAR HGB 29.4 PG (27.0-31.0); MEAN PLATELET VOLUME 10.6 FL (7.4-10.4); PLATELET COUNT 245 /CUMM (130-400); RED BLOOD CELL CT 4.01 /CUMM (4.20-5.40)
--- NOTE | 2017-02-13 10:12 | PN- Cardiology ---
RJ WISE,BUSTER 02/13/17 1006: Subjective Subjective: Patient seen and examined. She is seen sitting upright in a chair at bedside. She appears to be in mild distress, short of breath and uncomfortable. She reports 8/10 substernal aching chest pain without radiation that has been present "all morning". She also admits to having urinary pain/frequency/urgency with associated fever and chills. Review of Systems Constitutional: Reports: see HPI. Objective Vital Signs and I&Os Vital Signs Date Time Temp Pulse Resp B/P B/P Pulse O2 O2 Flow FiO2 Mean Ox Delivery Rate 02/13 0819 99.1 63 20 120/58 92 Room Air 02/13 0423 97.6 02/13 0353 97.6 02/13 0254 102.1 02/13 0242 102.1 70 22 152/76 96 Room Air 02/13 0000 96 Room Air 02/12 2115 168/70 02/12 1600 Room Air 02/12 1530 97.9 88 16 158/80 95 Room Air 02/12 1241 63 132/66 02/12 1021 62 190/62 Intake & Output 02/13 1600 02/13 0800 02/13 0000 02/12 1600 02/12 0800 02/12 0000 Intake Total 695 409 2235 860 1750 Output Total 350 200 425 325 Balance 372 924 2594 435 1425 Intake, IV 600 600 347 169 2828 Intake, Oral 200 240 480 240 600 Number 1 Bowel Movements Output, Urine 350 200 425 325 Patient 81.647 kg Weight Physical Exam: General- well developed, obese elderly woman in mild distress HEENT- 3.5" hematoma on posterior scalp with associated scabbing and scant bloody drainage, EOMI, PERRL, anicteric sclera, moist mucous membranes Neck- Supple, no JVD, no carotid bruits CVS- 2/6 systolic murmur, RRR Resp- Scant amount of bibasilar crackles GI- Soft, nontender, nondistended, bowel sounds intact Neuro- Awake and alert, oriented to person/place/time, CN II - XII grossly intact Ext- normal pulses, no cyanosis/clubbing/edema Current Medications: Current Medications Sig/Tricia Start time Last Medication Dose Route Stop Time Status Admin Acetaminophen 650 MG Q6P PRN 02/11 1745 AC 02/13 PO 0254 Albuterol Sulfate 3 ML Q6P PRN 02/11 1745 AC INH Aspirin 81 MG DAILY 02/12 1000 AC 02/12 PO 1022 Atorvastatin Calcium 10 MG 1700 02/12 1700 AC 02/12 PO 1744 Budesonide/ 2 PUF BID 02/11 2200 AC 02/12 Formoterol Fumarate INH 2115 Ceftriaxone Sodium 1,000 MG DAILY 02/13 1000 AC IV Fenofibrate 145 MG DAILY 02/12 1000 AC 02/12 PO 1022 Fluoxetine HCl 20 MG DAILY 02/12 1000 AC 02/12 PO 1022 Furosemide 40 MG ONCE ONE 02/13 0830 DC IV 02/13 0831 Heparin Sodium 5,000 UNIT Q8 02/11 1741 AC 02/13 (Porcine) SC 0557 Hydralazine HCl 100 MG BID 02/11 2200 AC 02/12 PO 2115 Hydromorphone HCl 1 MG Q4P PRN 02/12 0930 AC 02/13 PO 0229 Lorazepam 1 MG BID PRN 02/11 1800 AC 02/13 PO 0016 Magnesium Chloride 64 MG ONCE ONE 02/13 1000 DC PO 02/13 1001 Omeprazole 20 MG DAILY AC 02/12 0700 AC 02/13 PO 0558 Oxycodone/ 1 TAB Q6P PRN 02/11 1745 AC 02/12 Acetaminophen PO 1200 Oxycodone/ 2 TAB Q6P PRN 02/11 1745 AC 02/12 Acetaminophen PO 1747 Potassium Chloride 40 MEQ ONCE ONE 02/12 2100 DC 02/13 PO 02/12 2101 0104 Potassium Chloride 40 MEQ ONCE ONE 02/12 1815 DC 02/12 PO 02/12 1816 2115 Pregabalin 50 MG BID 02/11 220 AC 02/12 PO 2115 Sodium Chloride 1,000 ML Q13H 02/11 1830 DC 02/12 IV 2229 Tiotropium [place] 1 PUF DAILY 02/11 1747 AC 02/12 INH 1017 Results Last 48 Hrs of Labs/Mics: Laboratory Tests 02/13/17 0610: Anion Gap 13, Estimated GFR 27 L, BUN/Creatinine Ratio 14.4, Magnesium 1.7, CBC w Diff MAN DIFF ORDERED, RBC 4.01 L, MCV 89.1, MCH 29.4, RDW 14.6 H, MPV 10.6 H, Gran % 86.3 H, Lymphocytes % 5.4 L, Monocytes % 8.2, Eosinophils % 0.1, Basophils % 0 L, Absolute Granulocytes 18.1 H, Segmented Neutrophils 80 H, Band Neutrophils 9 H, Absolute Lymphocytes 1.1 L, Lymphocytes 4 L, Monocytes 6, Absolute Monocytes 1.7 H, Absolute Eosinophils 0, Basophils 1, Absolute Basophils 0, Platelet Estimate ADEQUATE, Normocytic RBCs VERIFIED, Normochromic RBCs VERIFIED, PUBS MCHC 33.0 02/13/17 0300: Urinalysis LIGHT H, Urine Color YEL, Urine Clarity CLDY H, Urine pH 6.0, Ur Specific [place] 1.025, Urine Protein 100 H, Urine Ketones NEG, Urine Nitrite NEG, Urine Bilirubin NEG, Urine Urobilinogen 1.0, Ur Leukocyte Esterase LARGE H , Ur Microscopic SEDIMENT EXAMINED, Urine RBC 1-3, Urine WBC > 75 H, Ur Epithelial Cells MOD H, Urine Bacteria PACKD H, Urine Mucus FEW, Urine Hemoglobin TRACE-INTACT, Urine Glucose NEG 02/12/17 0630: Anion Gap 9, Estimated GFR 47 L, BUN/Creatinine Ratio 21.8, CBC w Diff NO MAN DIFF REQ, RBC 3.53 L, MCV 89.5, MCH 29.6, RDW 14.5, MPV 9.6, Gran % 73.4, Lymphocytes % 14.2 L, Monocytes % 8.1, Eosinophils % 3.9, Basophils % 0.4, Absolute Granulocytes 5.5, Absolute Lymphocytes 1.1 L, Absolute Monocytes 0.6, Absolute Eosinophils 0.3, Absolute Basophils 0, PUBS MCHC 33.1 02/12/17 0125: Troponin I 0.05 02/11/17 1510: Urine Opiates Screen 1162.00, Methadone Screen < 40, Barbiturate Screen < 60, Ur Phencyclidine Scrn < 6.00, Amphetamines Screen < 100, U Benzodiazepines Scrn < 85, Urine Cocaine Screen < 50, Urine Cannabis Screen < 5.00, Urine Color YEL, Urine Clarity HAZY H, Urine pH 7.0, Ur Specific [place] 1.015, Urine Protein 30 H, Urine Ketones NEG, Urine Nitrite POS H, Urine Bilirubin NEG, Urine Urobilinogen 0.2, Ur Leukocyte Esterase MOD H, Ur Microscopic SEDIMENT EXAMINED , Urine RBC RARE, Urine WBC 5-10 H, Ur Epithelial Cells RARE, Urine Bacteria MANY H, Hyaline Casts RARE H, Urine Hemoglobin NEG, Urine Glucose NEG 02/11/17 1505: Anion Gap 12, Estimated GFR 39 L, BUN/Creatinine Ratio 24.6, Glucose 90, Calcium 9.8, Magnesium 2.0, Total Bilirubin 0.8, AST 51 H, ALT 49, Alkaline Phosphatase 99, Troponin I 0.03, Total Protein 7.5, Albumin 4.2, Globulin 3.3, Albumin/Globulin Ratio 1.3, 25-OH Vitamin D Total 38.6 02/11/17 1335: PT 11.4, INR 1.09, APTT 32, CBC w Diff NO MAN DIFF REQ, RBC 4.68, MCV 89.5, MCH 29.1, RDW 14.7 H, MPV 9.4, Gran % 66.8, Lymphocytes % 21.7, Monocytes % 7.7, Eosinophils % 3.2, Basophils % 0.6, Absolute Granulocytes 5.7, Absolute Lymphocytes 1.9, Absolute Monocytes 0.7 H, Absolute Eosinophils 0.3, Absolute Basophils 0, PUBS MCHC 32.5 L Assessment/Plan Assessment/Plan * Patient with recent hospitalization for mechanical fall and history of junctional bradycardion s/p pacemaker seen for evaluation of syncope. Patient denies any precedding aura/symptoms or any post-ictal state. Vital signs upon initial assessment demonstrated profound orthostasis. CT Head was negative for any acute intracranial pathology, but did identify two new compression fratures of T1/T6. Telemetry monitoring demonstrates a paced rhythm, interrogation of the pacemaker was unremarkable. * Overnight patient became febrile for which she was pancultured. She was identified to have a urinary tract infection for which intravenous antitbiotics were started. Creatinine appears worse today (1.8 from 1.1). * Follow up chest x-ray * Continue hydralazine Continue telemetry? Yes EMMY LITTLE MD 02/13/17 1502: Assessment/Plan Assessment/Plan This patient has a well controlled BP at present although her creatinine is rising consistent with a pre-renal state. Continue current medications for now and we will reassess vitals and renal function tomorrow.
--- NOTE | 2017-02-13 11:22 | RADIOLOGY REPORT ---
EXAMINATION: XR PORTABLE CHEST CLINICAL INFORMATION: Follow-up pneumonia. Fever. COMPARISON: Chest x-rays 01/18/2017. TECHNIQUE: Portable frontal view of the chest was obtained. FINDINGS: The lung mcnally are poorly expanded bilaterally. There is crowding of the bronchovascular structures in the bases bilaterally. There is mild thickening of the horizontal fissure, similar compared to the prior study. The cardiac silhouette is prominent, but similar compared to the prior study. There is no focal consolidation. There are no pleural effusions or pneumothoraces. The central pulmonary vasculature appears normal. There is mild bronchial wall thickening bilaterally. There is a pacemaker with 2 leads from the left chest wall. There are degenerative changes of the left glenohumeral joint. There are densities in the mid thoracic spine, consistent with augmentation procedure cement. IMPRESSION: 1. The lung mcnally are poorly expanded bilaterally. 2. There are no acute cardiopulmonary findings. Thickening of the bronchial melgar may be due to reactive airways disease or bronchitis. 3. There is augmentation material from prior thoracic kyphoplasty.
--- NOTE | 2017-02-13 11:57 | RADIOLOGY REPORT ---
EXAMINATION: XR PORTABLE ABDOMEN CLINICAL INFORMATION: Abdominal pain. Obstruction. COMPARISON: CT scan of the abdomen and pelvis 01/14/2017. TECHNIQUE: AP view of the abdomen. FINDINGS: There appears to be an enteric tube the tip in the gastric lumen. The loops of bowel are unremarkable and do not appear distended. There are no radiopaque foreign bodies. There is a moderate rotatory levoscoliosis with multilevel degenerative changes particularly in the lower lumbar spine. Apart from vascular calcification, the paravertebral structures are unremarkable. IMPRESSION: 1. No evidence of ileus or obstruction. 2. There are severe degenerative changes in the visualized thoracic and lumbar spines.
--- NOTE | 2017-02-13 12:38 | ULTRASOUND REPORT ---
EXAMINATION: US RETROPERITONEAL COMPLETE (RENAL) CLINICAL INFORMATION: Acute renal injury in the setting of chronic hydronephrosis. Status post fall. COMPARISON: 08/24/2016. CT 01/14/2017. TECHNIQUE: Real-time imaging of the kidneys and bladder. Selected static images are provided for interpretation. FINDINGS: RIGHT KIDNEY: 11.5 x 6.4 x 4.8 cm (SAG x AP x TRV). The kidney is normal in size, contour, and echogenicity. Renal cortical thickness is normal. No calculi or focal parenchymal lesions. No hydronephrosis. LEFT KIDNEY: 12.5 x 7.8 x 8.9 cm (SAG x AP x TRV). There is severe left-sided hydronephrosis with diffuse cortical thinning unchanged compared with the previous examination. There is no evidence of a perinephric hematoma There is no evidence of calculi or renal masses. BLADDER: Contains a small amount of fluid limiting evaluation however appears unremarkable. Ureteral jets are not documented. IMPRESSION: Stable appearing examination with severe left-sided hydronephrosis which has a chronic appearance.
--- NOTE | 2017-02-13 13:30 | Discharge Summary ---
Visit Information Visit Dates Admission Date: 02/13/17 Hospital Course Course Attending Physician: ANIKA CARRANZA MD Primary Care Physician: TYREL HARRIS APRN Consulting Request: Consulting Specialty: Cardiology Consulting Physician: Dr. Mumtaz Esposito [facility] Course: History of Present Illness: Patient is 86-year-old female with past medical history significant for asthma, COPD, hypertension, hyperlipidemia, history of bradycardia status post pacemaker placement, chronic kidney cc, chronic lower back pain, osteoarthritis came with chief complaint of unwitnessed fall/syncopal episode this morning. Patient was out with her granddaughter for shopping and granddaughter found her on Floor, patient didnot remember what happened and how she fell. Her fall resulted in scalp laceration and occipital region. Patient denied chest pain, palpitations, shortness of breath, dizziness, any urinary or bowel complaints Vital signs on admission were temperature 98.2, pulse 65, respiratory rate 18, blood pressure 216/100 mmHg later came down to 175/73. Was significantly orthostatics positive with blood pressure on lying 179/82 that dropped down to 102/[address] was negative for any acute intracranial pathology but CT spine showed mild superior endplate compression fracture of T1 vertebra which was new since January 14 but there is no significant subluxation during her hospital stay spiked fever of 102 her urinalysis shows significant leukocyte esterase and WBC count and patient was started on ceftriaxone for UTI treatment. She admits criteria for sepsis and lactic acid was sent came back 2.5. Patient is admitted to telemetery unit for the following problems: # Fall 2/2 most likely vasovagal etiology Most likely 2/2 dehydration. Orthostatic BP was positive on admission. # Dypsnea Satting well on RA but patient is complaining of difficulty breathing this morning. Significant crackles on lung exam. * Give one time IV Lasix 40mg and IV fluids were stopped. # Fever Patient spiked a fever of 102 last night. UA suspiscious for UTI. She was started on ceftriaxone. * # New compression fractures of the T1 and T6 Acute on chronic back pain most likely 2/2 new compression fractures of the T1 and T6 vertebral bodies as noted on CT. Previously in early January MRI showed T5 compression fracture with marrow edema, and multi level lumbar degenerative diseage with bulging of discs. s/p vertebral augmentation (01/22). Patient takes Dilaudid at home for pain control and she says she takes usually 1 pill at night. * Adequate pain control with narcotics as needed * Consider consulting IR for possible vertebroplasty as outpatient #History of junctional bradycardia, s/p pacemaker placement -S/p pacemaker placement in early January 2017. Currently in sinus rhythm. * Pacemaker interrogation was done and showed that is working appropriately. #HTN/HLD Her systolic blood pressure on lying down was 179 and dropped down to 102 on standing up. * Holding diuretics for now (per pateint HCTZ was recently increaed to 50mg QD) patient was provided with Gentle IV hydration and we Cont home med hydralazine 100mg BID * Continued fenofibrate (for lyperlipidemia) #Acute kidney injury on chronic kidney disease * Check BEP daily, trend Cr - stable * Avoid nephrogenic medication including lasix for now #Diabetes mellitus * Accu-Chek 3 times a day * NovoLog sliding scale 3 times a day #Asthma and COPD on inhalers * TRC * Continue home inhalers #Constipation * Continue Miralax and Senokot S with parameters to hold for loose stools. - Diet heart healthy - Moderate pain pathway - DVT prophylaxis - ALPs - Code full Complications: None Allergies: Coded Allergies: NO KNOWN ALLERGIES (12/24/12) Significant Procedures: SERVICE DATE: 02/13/17- EXAM TYPE: US - US-RENAL/KIDNEY EXAMINATION: US RETROPERITONEAL COMPLETE (RENAL) CLINICAL INFORMATION: Acute renal injury in the setting of chronic hydronephrosis. Status post fall. COMPARISON: 08/24/2016. CT 01/14/2017. TECHNIQUE: Real-time imaging of the kidneys and bladder. Selected static images are provided for interpretation. FINDINGS: RIGHT KIDNEY: 11.5 x 6.4 x 4.8 cm (SAG x AP x TRV). The kidney is normal in size, contour, and echogenicity. Renal cortical thickness is normal. No calculi or focal parenchymal lesions. No hydronephrosis. LEFT KIDNEY: 12.5 x 7.8 x 8.9 cm (SAG x AP x TRV). There is severe left-sided hydronephrosis with diffuse cortical thinning unchanged compared with the previous examination. There is no evidence of a perinephric hematoma There is no evidence of calculi or renal masses. BLADDER: Contains a small amount of fluid limiting evaluation however appears unremarkable. Ureteral jets are not documented. IMPRESSION: Stable appearing examination with severe left-sided hydronephrosis which has a chronic appearance. Disposition Summary Disposition Principal Diagnosis: UTI Additional Diagnosis: Syncope most likely due to dehydration/vasovagal Discharge Disposition: SNF Discharge Instructions General Discharge Information Code Status: Full Code Patient's Diet: Heart healthy diet Patient's Activity: As tolerated with assistance Follow-Up Instructions/Appts: These follow-up with your primary care physician in one week of discharge Please follow-up with interventional radiology for further vertebroplasty if needed Please follow-up with cardiology as outpatient in 1 week of discharge Medications at Discharge Discharge Medications: Stop taking the following medications: Hydrochlorothiazide (Hydrochlorothiazide) 50 MG TABLET ORAL DAILY Continue taking these medications: Budesonide/Formoterol Fumarate (Symbicort 80-4.5 Mcg Inhaler) 80 MCG-4.5 MCG/ ACTUATION HFA.AER.AD 2 Puff Inhale through mouth TWICE DAILY Qty = 30 Fluoxetine HCl (Fluoxetine HCl) 20 MG CAPSULE 1 Capsule ORAL DAILY Qty = 90 Lovastatin (Lovastatin) 40 MG TABLET 1 Tablet ORAL DAILY Qty = 90 Instructions: with food Fenofibrate Nanocrystallized (Fenofibrate) 145 MG TABLET 1 Tablet ORAL DAILY Aspirin (Aspirin*) 81 MG TAB.CHEW 1 Tablet ORAL DAILY Albuterol Sulfate (Albuterol Sulfate) 2.5 MG/3 ML (0.083 %) VIAL.NEB 1 Vial Inhale Solution Q6H as needed for WHEEZING Hydromorphone HCl (Dilaudid) 2 MG TABLET 1 Tablet ORAL Q4H as needed for PAIN Hydroxyzine HCl (Hydroxyzine HCl) 25 MG TABLET 1 Tablet ORAL THREE TIMES DAILY as needed for ITCHING Lidocaine (Lidoderm) 5 % ADH..PATCH 1 Patch On the skin DAILY Instructions: may wear up to 12 hours Lorazepam (Lorazepam) 1 MG TABLET 1 Tablet ORAL TWICE DAILY as needed for ANXIETY Multivitamin (Multi-Day Vitamins) 1 EACH TABLET 1 Tablet ORAL DAILY Omeprazole (Omeprazole) 20 MG TABLET.DR 1 Tablet ORAL DAILY Pregabalin (Lyrica) 50 MG CAPSULE 1 Capsule ORAL TWICE DAILY Tiotropium [place] (Spiriva) 18 MCG CAP.W.DEV 1 Capsule Inhale through mouth DAILY Cholecalciferol (Vitamin D3) 1,000 UNIT TABLET 1 Tablet ORAL DAILY Hydralazine HCl (Hydralazine HCl) 100 MG TABLET 1 Tablet ORAL TWICE DAILY Copies To: TYREL HARRIS APRN Attending MD Review Statement Documenting Attending: ANIKA CARRANZA MD
--- NOTE | 2017-02-13 15:31 | Event Note ---
Event Note Event Note: I was informed by Dr. Garcia who received a call from microbiology regarding positive blood culture with gram-negative rods in both culture bottles. Attending was informed. Patient was already been started on ceftriaxone and we will wait for sensitivity to come back.
[2017-02-13 16:54] VITALS: BP 122/60
[2017-02-14 00:55] VITALS: BP 92/60
[2017-02-14 06:02] LABS: ABSOLUTE BASOPHIL COUNT 0 /CUMM (0.0-0.2); ABSOLUTE EOSINOPHIL COUNT 0 /CUMM (0.0-0.7); ABSOLUTE LYMPH COUNT 0.9 /CUMM (1.2-3.4); ABSOLUTE MONOCYTE COUNT 1.1 /CUMM (0.10-0.60); BASOPHIL % 0.1 % (0.0-2.0); EOSINOPHIL % 0 % (0-5); HEMATOCRIT 37.7 % (37-47); MEAN CORPUSCULAR HGB CONC 32.6 G/DL (33.0-37.0); MEAN CORPUSCULAR VOLUME 88.9 FL (81.0-99.0); PLATELET COUNT 237 /CUMM (130-400); RED BLOOD CELL CT 4.24 /CUMM (4.20-5.40); WHITE BLOOD CELL COUNT 19.1 /CUMM (4.8-10.8)
--- NOTE | 2017-02-14 06:50 | PN- Housestaff ---
See Addendum Subjective Follow-up For: Syncope Chronic back pain Acute on CKD Elevated troponins Tele-Events Since Last Visit: SR, 60-90s, junctional rhythyms Subjective: Patient seen and examined at bedside. She is in severe pain, complaining of dyspnea. Slightly lethargic. Denies any fever, chills, chest pain, palpitations, lightheadedness, dizziness, abdominal pain, n/v/c/d. Review of Systems Constitutional: Reports: see HPI. Objective Last 24 Hrs of Vital Signs/I&O Vital Signs Date Time Temp Pulse Resp B/P B/P Pulse O2 O2 Flow FiO2 Mean Ox Delivery Rate 02/14 1052 96.1 112 32 180/88 99 Non 100% ReBreather 02/14 0859 92 Nasal 2.0L Cannula 02/14 08 99.9 79 20 96/56 93 Room Air 02/14 0055 98.9 77 22 92/60 94 Room Air 02/14 0000 94 Room Air 02/13 2154 122/60 02/13 1921 97 Room Air Room Air 02/13 1654 98.8 66 20 122/60 94 02/13 1314 Room Air Room Air Intake & Output 02/14 1600 02/14 0800 06 0000 Intake Total 240 120 Output Total Balance 240 120 Intake, Oral 240 120 Physical Exam General Appearance: Alert, Cooperative, Moderate Distress Other Physical Findings: Skin Temp/Moisture Exam: Warm/Dry HEENT Trauma: left parietal region has scalp laceration that has five yanet, placed, eyes not scaly today, PERRLA, EOMI, Mucous Membr. moist/pink Neck Supple, No JVD Lymphatic no cervical lymphadenopathy Cardiovascular Regular Rate, Normal S1, Normal S2, systolic Murmur + Lungs Clear to Auscultation, Normal Air Movement Abdomen Normal Bowel Sounds, Soft, No Tenderness Neurological Normal Gait, grossly intact Back Tenderness over lower back L>R, spine tenderness at multiple levels of spine Extremities No Clubbing, No Cyanosis, No Edema, Normal Pulses Current Medications: Current Medications Sig/Tricia Start time Last Medication Dose Route Stop Time Status Admin Acetaminophen 650 MG Q6P PRN 02/11 1745 AC 02/13 PO 0254 Acetylcysteine 600 MG ONCE ONE 02/14 1045 DC PO 02/14 1046 Albuterol Sulfate 3 ML Q6P PRN 02/11 1745 AC 02/14 INH 1107 Aspirin 81 MG DAILY 02/12 1000 AC 02/13 PO 1039 Atorvastatin Calcium 10 MG 1700 02/12 1700 AC 02/13 PO 1549 Budesonide/ 2 PUF BID 02/11 2200 AC 02/13 Formoterol Fumarate INH 2154 Ceftriaxone Sodium 1,000 MG DAILY 02/13 1000 AC 02/14 IV 0930 Fenofibrate 145 MG DAILY 02/12 1000 AC 02/13 PO 1039 Fluoxetine HCl 20 MG DAILY 02/12 1000 AC 02/13 PO 1039 Heparin Sodium 5,000 UNIT Q8 02/11 1741 AC 02/14 (Porcine) SC 0534 Hydralazine HCl 100 MG BID 02/11 2200 AC 02/13 PO 2154 Hydromorphone HCl 0.2 MG Q4P PRN 02/14 1045 DC IV Hydromorphone HCl 0.4 MG Q4P PRN 02/14 1045 DC IV Hydromorphone HCl 0.4 MG Q4P PRN 02/14 0830 DC IV Hydromorphone HCl 0.6 MG Q4P PRN 02/14 0830 DC 02/14 IV 0834 Hydromorphone HCl 0.2 MG Q4P PRN 02/13 2300 DC 02/14 IV 0542 Hydromorphone HCl 1 MG Q4P PRN 02/12 0930 DC 02/13 PO 1947 Lactated Ringer's 1,000 ML Q10H 02/14 1145 AC IV Lidocaine 2 PAT DAILY 02/13 1923 AC 02/14 EXT 0802 Lorazepam 1 MG BID PRN 02/11 1800 DC 02/13 PO 2027 Methylprednisolone 20 MG ONCE ONE 02/14 1045 DC IV 02/14 1046 Morphine Sulfate 2 MG ONCE ONE 02/14 1145 DC IV 02/14 1146 Naloxone HCl 0.4 MG ONCE ONE 02/14 1030 DC 02/14 IV 02/14 1031 1032 Omeprazole 20 MG DAILY AC 02/12 0700 AC 02/14 PO 0535 Oxycodone/ 1 TAB Q6P PRN 02/11 1745 DC 02/12 Acetaminophen PO 1200 Oxycodone/ 2 TAB Q6P PRN 02/11 1745 DC 02/14 Acetaminophen PO 0801 Patient Medication 1 ED .STK-MED ONE 02/13 1417 DC Teaching ED 02/13 1418 Pregabalin 50 MG BID 02/11 2200 DC 02/13 PO 2153 Tiotropium Romance 1 PUF DAILY 02/11 1747 AC 02/13 INH 1039 Last 24 Hrs of Lab/Tylor Results Last 24 Hrs of Labs/Mics: Laboratory Tests 02/14/17 0515: Troponin I 0.15 *H 02/14/17 0515: Anion Gap 14, Estimated GFR 16 L, BUN/Creatinine Ratio 13.9, Magnesium 1.8, CBC w Diff NO MAN DIFF REQ, RBC 4.24, MCV 88.9, MCH 29.0, RDW 15.0 H, MPV 11.0 H, Gran % 89.0 H, Lymphocytes % 5.0 L, Monocytes % 5.9, Eosinophils % 0, Basophils % 0.1, Absolute Granulocytes 17.0 H, Absolute Lymphocytes 0.9 L, Absolute Monocytes 1.1 H, Absolute Eosinophils 0, Absolute Basophils 0, PUBS MCHC 32.6 L 02/13/17 2327: Lactic Acid 3.0 H, Troponin I 0.12 *H 02/13/17 1825: Troponin I 0.12 *H 02/13/17 1410: Lactic Acid 1.9 Microbiology 02/14 1106 UPPER RESP: Surveillance Culture - ORD 02/14 1106 GI: Surveillance Culture - ORD Assessment/Plan Assessment: Ms. Branch is 86 year old female with past medical history significant for diabetes mellitus, asthma, COPD not on home oxygen, hypertension, hyperlipidemia , bradycardia, chronic kidney disease, chronic lower back pain, chronic left hydronephrosis, osteoarthritis, who presented to ED after a fall. Patient is admitted to telemetery unit for the following problems: # Syncope 2/2 orthostatic hypotension Most likely due to dehydration. Orthostatic BP was positive on admission. * Cont tele monitoring for now to r/o arrhythmias * Vitals per protocol * PT evaluation * Appreciate cardio recs * Follow up on pacemaker interrogation - unremarkable # Severe sepsis most likely 2/2 UTI Patient spiked a fever of 102 last night. WBC and lactic acid elevated at 21 and 2.7 respectively. UA suspiscious for UTI. CXR shows no acute cardiopulmonary findings * Follow pancultures * Start IV CTX * Cont to monitor for signs of inection * Trend lactic acid # Acute on CKD. Patient's creatinine bumping up from 1.1 -> 1.7 -> 2.8. Most likely 2/2 cardiorenal syndrome vs. intravascular volume depletion. There may also be a component of her history of hydroneprhosis. Repeat CXR to be followed. * Check renal fx daily * Appreciate nephro recs * Start IV hydration with LR * Avoid nephrotoxins # Possible CHF exacerbation On hospitaly day 2, patient complained of severe dyspnea. Crackles appreciated on lung exam. Most likely 2/2 CHF exacerbation as diruetics have been held. We discontinued IVF and gave her one time IV Lasix 40mg. CXR done afterwards didn't show any acute cardiopulmonary findings. * Appreciate cardio/nephro recs * Resume IVF for now for HERNÁN # New compression fractures of the T1 and T6 Acute on chronic back pain most likely 2/2 new compression fractures of the T1 and T6 vertebral bodies as noted on CT. Previously in early January MRI showed T5 compression fracture with marrow edema, and multi level lumbar degenerative diseage with bulging of discs. s/p vertebral augmentation (01/22). Patient takes Dilaudid at home for pain control and she says she takes usually 1 pill at night. * Adequate pain control with minimal narcotics * Consider consulting IR for possible vertebroplasty # Elevated troponins Patient complained of substernal chest pain only induced with palpation. Trops slightly elevated with EKG showing mild ST depression. Thrid set pending this moring. #History of junctional bradycardia, s/p pacemaker placement -S/p pacemaker placement in early January 2017. Currently in sinus rhythm. * Follow up on interrogation of pacemaker * Continuous cardiac monitoring #HTN/HLD Her systolic blood pressure on lying down was 179 and dropped down to 102 on standing up. * Holding diuretics for now (per pateint HCTZ was recently increaed to 50mg QD) * Gentle IV hydration * Cont home med hydralazine 100mg BID * Avoid any heart rate lowering drugs * Continue fenofibrate (for lyperlipidemia) * Cardiology consultation #Diabetes mellitus * Accu-Chek 3 times a day * NovoLog sliding scale 3 times a day #Asthma and COPD on inhalers * TRC * Continue home inhalers #Constipation * Continue Miralax and Senokot S with parameters to hold for loose stools. - Diet heart healthy - Moderate pain pathway - DVT prophylaxis - ALPs - Code full Problem List: 1. Hypertension 2. Orthostatic hypotension 3. Chronic low back pain 4. Constipation 5. Atrial fibrillation 6. Diabetes mellitus 7. Junctional bradycardia 8. Fall Pain Ratin Pain Location: Back Pain Goal: Pain 7 or less Pain Plan: Moderate pathway Tomorrow's Labs & Rationales: CBC BEP, Mg Consulting Request: Consulting Specialty: Cardiology Consulting Physician: Dr. Mumtaz Esposito
[2017-02-14 08:00] VITALS: BP 96/56
--- NOTE | 2017-02-14 08:50 | Event Note ---
See Addendum Event Note Event Note: At appx 8:30AM patient was witnessed to be tremulous in all extremities for about 20 seconds. Patient was seen and examined by the team at which point the tremors resolved but she was diaphoretic and in severe distress due to the back pain. O2 sat dropping to 80s with tachypnea. Patient awake and alert but disoriented. She received 0.6mg of IV Dilaudid with relief in pain. Patient was placed on oxygen supplement. Discussed with the attending physician Dr. Francisco for possible seizure. No need for EEG for now. Will watch closely. At 10:30AM, patient continues to be larthargic with decreased responses to questions. Oxygen saturation remaining in high 80s on 2 liters of oxygen. Pt continues to be tachypenic. Vitals otherwise remarkable for tachycardia at 112. RT called for TRC tx and airway suction. Significant rales and stridors on lung exam. She was given narcan 0.4mg IV and Solumedrol 20mg IV. CXR and ABG ordered stat. Per Dr. Mendoza's assessment patient is being transferred to ICU for close monitoring as she may require intubation given her respiratory deteriotation. Family (niece and daughter) updated about the current status at bedside. Code changed to DNR/DNI.
--- NOTE | 2017-02-14 10:16 | Cons- Nephrology ---
General Information and HPI Consulting Request Date of Consult: 02/14/17 Requested By: ANIKA CARRANZA MD Reason for Consult: HERNÁN Source of Information: old records Exam Limitations: unable to give history, clinical condition History of Present Illness: Patient is 86-year-old female with past medical history significant for asthma, COPD, hypertension, hyperlipidemia, history of bradycardia status post pacemaker placement, chronic kidney cc, chronic lower back pain, osteoarthritis came with chief complaint of unwitnessed fall/syncopal episode this morning. CT spine showed mild superior endplate compression fracture of T1 vertebra which was new since January 14 but there is no significant subluxation. On February 13 and january 14 patient spiked fever of 102, and developed leukocytosis. Her urinalysis shows significant leukocyte esterase and WBC count and patient was started on ceftriaxone for UTI treatment. Patient's Cr slightly icreased to 1.8 from 1.1, which was considered to be a manifestation of cardiorenal syndrom +/- compronents of obstructive uropathy (left-sided hydronephrosis), accordingly, patient was treated with IV lasix for her ADHF. Over night oatient received extra narcotics, whch further suppresed her mentation, and possibly caused an aspiration. Currently patient is in acute respiratory distres and obtaining a Hx is not possible. Allergies/Medications Allergies: Coded Allergies: NO KNOWN ALLERGIES (12/24/12) Home Med List: Albuterol Sulfate 2.5 MG/3 ML (0.083 %) VIAL.NEB 1 Vial INH/TWIN Q6H PRN WHEEZING (Reported) Aspirin (Aspirin*) 81 MG TAB.CHEW 1 TAB PO DAILY PACEMAKER (Reported) Budesonide/Formoterol Fumarate (Symbicort 80-4.5 Mcg Inhaler) 80 MCG-4.5 MCG/ ACTUATION HFA.AER.AD 2 PUF INH BID BREATHING PROBLEMS (Reported) Cholecalciferol (Vitamin D3) 1,000 UNIT TABLET 1 TAB PO DAILY SUPPLEMENT ( Reported) Fenofibrate Nanocrystallized (Fenofibrate) 145 MG TABLET 1 TAB PO DAILY cholesterol (Reported) Fluoxetine HCl 20 MG CAPSULE 1 CAP PO DAILY MENTAL HEALTH (Reported) Hydralazine HCl 100 MG TABLET 1 TAB PO BID HTN (Reported) Hydrochlorothiazide 50 MG TABLET 1 TAB PO DAILY HTN (Reported) Hydromorphone HCl (Dilaudid) 2 MG TABLET 1 TAB PO Q4H PRN PAIN (Reported) Hydroxyzine HCl 25 MG TABLET 1 TAB PO TID PRN ITCHING (Reported) Lidocaine (Lidoderm) 5 % ADH..PATCH 1 PAT TOP DAILY PAIN (Reported) may wear up to 12 hours Lorazepam 1 MG TABLET 1 TAB PO BID PRN ANXIETY (Reported) Lovastatin 40 MG TABLET 1 TAB PO DAILY CHOLESTEROL (Reported) with food Multivitamin (Multi-Day Vitamins) 1 EACH TABLET 1 TAB PO DAILY SUPPLEMENT ( Reported) Omeprazole 20 MG TABLET.DR 1 TAB PO DAILY GI (Reported) Pregabalin (Lyrica) 50 MG CAPSULE 1 CAP PO BID PAIN (Reported) Tiotropium [place] (Spiriva) 18 MCG CAP.W.DEV 1 CAP INH DAILY RESPIRATORY ( Reported) Current Medications: Current Medications Sig/Tricia Start time Last Medication Dose Route Stop Time Status Admin Acetaminophen 650 MG Q6P PRN 02/11 1745 AC 02/13 PO 0254 Albuterol Sulfate 3 ML Q6P PRN 02/11 1745 AC 02/13 INH 1309 Aspirin 81 MG DAILY 02/12 1000 AC 02/13 PO 1039 Atorvastatin Calcium 10 MG 1700 02/12 1700 AC 02/13 PO 1549 Budesonide/ 2 PUF BID 02/11 2200 AC 02/13 Formoterol Fumarate INH 2154 Ceftriaxone Sodium 1,000 MG DAILY 02/13 1000 AC 02/14 IV 0930 Fenofibrate 145 MG DAILY 02/12 1000 AC 02/13 PO 1039 Fluoxetine HCl 20 MG DAILY 02/12 1000 AC 02/13 PO 1039 Heparin Sodium 5,000 UNIT Q8 02/11 1741 AC 02/14 (Porcine) SC 0534 Hydralazine HCl 100 MG BID 02/11 2200 AC 02/13 PO 2154 Hydromorphone HCl 0.4 MG Q4P PRN 02/14 0830 AC IV Hydromorphone HCl 0.6 MG Q4P PRN 02/14 0830 AC 02/14 IV 0834 Hydromorphone HCl 0.2 MG Q4P PRN 02/13 2300 DC 02/14 IV 0542 Hydromorphone HCl 1 MG Q4P PRN 02/12 0930 DC 02/13 PO 1947 Lidocaine 2 PAT DAILY 02/13 1923 AC 02/14 EXT 0802 Lorazepam 1 MG BID PRN 02/11 1800 AC 02/13 PO 2027 Naloxone HCl 0.4 MG ONCE ONE 02/14 1030 UNVr IV 02/14 1031 Omeprazole 20 MG DAILY AC 02/12 0700 AC 02/14 PO 0535 Oxycodone/ 1 TAB Q6P PRN 02/11 1745 DC 02/12 Acetaminophen PO 1200 Oxycodone/ 2 TAB Q6P PRN 02/11 1745 DC 02/14 Acetaminophen PO 0801 Patient Medication 1 ED .STK-MED ONE 02/13 1417 DC Teaching ED 02/13 1418 Pregabalin 50 MG BID 02/11 2200 AC 02/13 PO 2153 Tiotropium [place] 1 PUF DAILY 02/11 1747 AC 02/13 INH 1039 Review of Systems Review of Systems: Shortness of breath and respiratory distress and back ache. Review of Systems Constitutional: Reports: see HPI. EENTM: Reports: see HPI. Cardiovascular: Reports: see HPI. Respiratory: Reports: see HPI. 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 Home Services at Home: Nursing Smoking Status: Never Smoked ETOH Use: denies use Functional Ability ADLs Needs Assist: dressing, eating, toileting, bathing. Ambulation: walker IADLs Needs Assist: shopping, housework, finances, food prep, telephone, transportation, medication admin. Exam & Diagnostic Data Vital Signs and I&O Vital Signs Date Time Temp Pulse Resp B/P B/P Pulse O2 O2 Flow FiO2 Mean Ox Delivery Rate 02/14 0859 92 Nasal 2.0L Cannula 02/14 0800 99.9 79 20 96/56 93 Room Air 02/14 0055 98.9 77 22 92/60 94 Room Air 02/14 0000 94 Room Air 02/13 2154 122/60 02/13 1921 97 Room Air Room Air 02/13 1654 98.8 66 20 122/60 94 02/13 1314 Room Air Room Air 02/13 1039 120/58 Intake & Output 02/14 1600 02/14 0400 02/13 04002/12 0400 Intake Total 011 629 2415 840 1940 1750 Output Total 350 200 425 325 Balance 240 120 788 683 1382 1425 Intake, IV 533 474 4176 1150 Intake, Oral 240 120 600 240 720 600 Number 1 Bowel Movements Output, Urine 350 200 425 325 Patient 180 lb 180 lb Weight Physical Exam General Appearance: alert, anxious, severe distress Head: atraumatic Neck: normal inspection Respiratory: crackles, rhonchi Cardiovascular: regular rate/rhythm, tachycardia Extremities: normal inspection Assessment/Plan Assessment/Recommendations Assessment: reason for consult HERNÁN Patient is a 86 years old, who were admitted for evaluation of her syncope and was found to be ADHF and sepsis with possible source of UTI additionally it was noted that she developed HERNÁN ( Cr from 1.1 to 2.8). 1) HERNÁN: Most possible realted to cardiorenal syndrome either type I or tyoe on top of the pre-existing cardiorenal type II, either, patients kidney function seemed to have detoriorated after receiving doses of IV lasix, and possible components of obstructive uropathy or secondary to UTI. * Continue IV hydraion with Normal saline with the current rate * avoid lasix * reperat labs in the am * abdominal pelvis CT scan to assess the cause of hydronephrosis * possible urology consult 2) sepsis of urinary origin. Positive urine and blood Cx for gram negative rods. * IV cefteriaxone; follow up microbiology results Full code Recommendations: discussed above Problem List: 1. Compression fracture of thoracic vertebra 2. Orthostatic hypotension 3. S/P placement of cardiac pacemaker 4. Junctional bradycardia 5. Acute kidney injury (nontraumatic) 6. Hydronephrosis of left kidney
[2017-02-14 10:52] VITALS: BP 180/88
--- NOTE | 2017-02-14 11:10 | Transfer of Care Summary ---
Hospital Course Course Hospital Course: Ms. Branch is 86 year old female with a PMH significant for DM, asthma, COPD not on home oxygen, HTN, HLD, bradycardia s/p pacemaker palcement, CKD, chronic lower back pain, chronic left hydronephrosis, and osteoarthritis, who presented to ED after a syncopal episode. On 02/14/17 at appx 8:30AM patient was witnessed to be tremulous in all extremities for about 20 seconds. Patient was seen and examined by the team at which point the tremors resolved but she was diaphoretic and in severe distress due to the back pain. O2 sat dropping to 80s with tachypnea. Patient awake and alert but disoriented. She received 0.6mg of IV Dilaudid with relief in pain. Patient was placed on oxygen supplement. Discussed with the attending physician Dr. Francisco for possible seizure. No need for EEG for now. Will watch closely. At 10:30AM, patient continues to be larthargic with decreased responses to questions. Oxygen saturation remaining in high 80s on 2 liters of oxygen. Pt continues to be tachypenic. Vitals otherwise remarkable for tachycardia at 112. RT called for TRC tx and airway suction. Significant rales and stridors on lung exam. She was given narcan 0.4mg IV and Solumedrol 20mg IV. CXR and ABG ordered stat. Per Dr. Mendoza's assessment patient is being transferred to ICU for close monitoring as she may require intubation given her respiratory deteriotation. Family (niece and daughter) updated about the current status at bedside. Code changed to DNR/DNI. Patient was admitted to telemetery unit for the following problems: # Syncope 2/2 orthostatic hypotension Most likely due to dehydration as orthostatic BP was positive on admission and her home med HCTZ was recently increased to 50mg daily. Cardiology was consulted and recommened holding diuretics. She was kept on home med hydralazine 100mg PO BID. Pacemaker interrogation was unremarkable. # Severe sepsis most likely 2/2 UTI Patient spiked a fever of 102 during the night of 02/12. WBC and lactic acid elevated at 21 and 2.7 respectively the following day. UA suspiscious for UTI. CXR shows no acute cardiopulmonary findings. Patient was started on IV ceftriaxone. Pancultures sent. GNR growing in Bcx x 2 and urine cx. # Possible CHF exacerbation On hospitaly day 2, patient complained of severe dyspnea. Crackles appreciated on lung exam. Most likely 2/2 CHF exacerbation as diruetics have been held. We discontinued IVF and gave her one time IV Lasix 40mg. CXR done afterwards didn't show any acute cardiopulmonary findings. # Acute on CKD. Patient's creatinine bumping up from 1.1 -> 1.7 -> 2.8. Most likely 2/2 cardiorenal syndrome vs. intravascular volume depletion. There may also be a component of her history of hydroneprhosis. Repeat CXR to be followed. Nephrology was consulted. Avoid nephrotoxins including Lasix and hold IVF in the meantime. # New compression fractures of the T1 and T6 Acute on chronic back pain most likely 2/2 new compression fractures of the T1 and T6 vertebral bodies as noted on CT. Previously MRI from early January showed T5 compression fracture with marrow edema, and multi level lumbar degenerative diseage with bulging of discs. Patient is s/p vertebral augmentation (01/22). She takes Dilaudid at home for pain control. Manage her pain for now. Referral for for possible vertebroplasty outpatient. # Elevated troponins Patient complained of substernal chest pain only induced with palpation. Trops slightly elevated with EKG showing mild ST depression. Thrid set pending this moring. #History of junctional bradycardia, s/p pacemaker placement S/p pacemaker placement in early January 2017. Currently in sinus rhythm. Interrogation of pacemaker was unremarkable. 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 #HTN/HLD Her systolic blood pressure on lying down was 179 and dropped down to 102 on standing up. We held diuretics (per pateint HCTZ was recently increaed to 50mg QD). She was kept on home meds hydralazine 100mg BID and fenofibrate (for lyperlipidemia). Cardiology following. #Diabetes mellitus Patient was kept on NovoLog SSI with accuchecks. #Asthma and COPD on inhalers She was kept on TRC and home inhalers. - Diet heart healthy - Moderate pain pathway - DVT prophylaxis - ALPs - Code full Assessment/Plan: See above
--- NOTE | 2017-02-14 11:12 | Cons- Nephrology ---
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 The patient was with her granddaughter shopping when she had a syncopal episode, no reported prodromal symptoms, complicated by a scalp laceration. She was subsequently brought to [facility] where she was found to have a blood pressure of 216/100. CT Head without acute abnormality. She was found to have a T1and T6 vertebral fracture on CT C-spine. Her BP meds were restarted. Interrogation of the PPM noted to be unremarkable. No events noted on telemetry (paced rhythm). Course has been c/b urosepsis with GNR's - UCx and BCx positive on 02/13 - pt with fever up to 102.1 on 02/13. BP initially resonably controlled but has been dropping significantly over the last couple of days and is as low as 92/60 today. She was started on empiric Ceftriaxone awaiting speciation/ sensitivity. WBC up to 21.0 and is 19.1 today. Noted to have difficulty breathing - initially had been on IVF but then when she complained of this and had crackles on exam, she was given 40mg IV lasix. No edema on chest x-ray. Nephrology is consulted for HERNÁN. SCr was 1.3 on presentation, 1.1 on 02/12, and then increased to 1.8 yesterday, and then 2.8 today (02/14). 350cc UOP in the last day. No nephrotoxic meds. No contrast imaging studies. Initial UA with 30mg/dl protein, positive nitrite, 5-10 WBC, and rare RBC. 02/13 UA with 100mg/dl protein, neg nitrite, >75 WBC's, and 1-3 RBC's. Renal U/S with R kidney 11.5cm and L kidney 12.5cm. Her L kidney was noted to have severe L-sided hydronephrosis with diffuse cortical thinning noted to be unchanged from prior imaging on 01/14/17 - no stones. She actually had a Nuc Med Renal Scan in August which demonstrated split function - 78% R and 22% L kidney. She was evaluated inpatient by Dr. Fontanez in the past for this issue which was noted to be longstanding and stable. Pt seen today and unable to contribute to history as completely altered. Allergies/Medications Allergies: Coded Allergies: NO KNOWN ALLERGIES (12/24/12) Home Med List: Albuterol Sulfate 2.5 MG/3 ML (0.083 %) VIAL.NEB 1 Vial INH/TWIN Q6H PRN WHEEZING (Reported) Aspirin (Aspirin*) 81 MG TAB.CHEW 1 TAB PO DAILY PACEMAKER (Reported) Budesonide/Formoterol Fumarate (Symbicort 80-4.5 Mcg Inhaler) 80 MCG-4.5 MCG/ ACTUATION HFA.AER.AD 2 PUF INH BID BREATHING PROBLEMS (Reported) Cholecalciferol (Vitamin D3) 1,000 UNIT TABLET 1 TAB PO DAILY SUPPLEMENT ( Reported) Fenofibrate Nanocrystallized (Fenofibrate) 145 MG TABLET 1 TAB PO DAILY cholesterol (Reported) Fluoxetine HCl 20 MG CAPSULE 1 CAP PO DAILY MENTAL HEALTH (Reported) Hydralazine HCl 100 MG TABLET 1 TAB PO BID HTN (Reported) Hydrochlorothiazide 50 MG TABLET 1 TAB PO DAILY HTN (Reported) Hydromorphone HCl (Dilaudid) 2 MG TABLET 1 TAB PO Q4H PRN PAIN (Reported) Hydroxyzine HCl 25 MG TABLET 1 TAB PO TID PRN ITCHING (Reported) Lidocaine (Lidoderm) 5 % ADH..PATCH 1 PAT TOP DAILY PAIN (Reported) may wear up to 12 hours Lorazepam 1 MG TABLET 1 TAB PO BID PRN ANXIETY (Reported) Lovastatin 40 MG TABLET 1 TAB PO DAILY CHOLESTEROL (Reported) with food Multivitamin (Multi-Day Vitamins) 1 EACH TABLET 1 TAB PO DAILY SUPPLEMENT ( Reported) Omeprazole 20 MG TABLET.DR 1 TAB PO DAILY GI (Reported) Pregabalin (Lyrica) 50 MG CAPSULE 1 CAP PO BID PAIN (Reported) Tiotropium Dodson (Spiriva) 18 MCG CAP.W.DEV 1 CAP INH DAILY RESPIRATORY ( Reported) Current Medications: Current Medications Sig/Tricia Start time Last Medication Dose Route Stop Time Status Admin Acetaminophen 650 MG Q6P PRN 05/29 1745 AC 02/13 PO 0254 Acetylcysteine 600 MG ONCE ONE 02/14 1045 DC PO 02/14 1046 Albuterol Sulfate 3 ML Q6P PRN 02/11 1745 AC 02/14 INH 1107 Aspirin 81 MG DAILY 02/12 1000 AC 02/13 PO 1039 Atorvastatin Calcium 10 MG 1700 02/12 1700 AC 02/13 PO 1549 Budesonide/ 2 PUF BID 02/11 2200 AC 02/13 Formoterol Fumarate INH 2154 Ceftriaxone Sodium 1,000 MG DAILY 02/13 1000 AC 02/14 IV 0930 Fenofibrate 145 MG DAILY 02/12 1000 AC 02/13 PO 1039 Fluoxetine HCl 20 MG DAILY 02/12 1000 AC 02/13 PO 1039 Heparin Sodium 5,000 UNIT Q8 02/11 1741 AC 02/14 (Porcine) SC 0534 Hydralazine HCl 100 MG BID 02/11 2200 AC 02/13 PO 2154 Hydromorphone HCl 0.2 MG Q4P PRN 02/14 1045 AC IV Hydromorphone HCl 0.4 MG Q4P PRN 02/14 1045 AC IV Hydromorphone HCl 0.4 MG Q4P PRN 02/14 0830 DC IV Hydromorphone HCl 0.6 MG Q4P PRN 02/14 0830 DC 02/14 IV 0834 Hydromorphone HCl 0.2 MG Q4P PRN 02/13 2300 DC 02/14 IV 0542 Hydromorphone HCl 1 MG Q4P PRN 02/12 0930 DC 02/13 PO 1947 Lidocaine 2 PAT DAILY 02/13 1923 AC 02/14 EXT 0802 Lorazepam 1 MG BID PRN 02/11 1800 AC 02/13 PO 2027 Methylprednisolone 20 MG ONCE ONE 02/14 1045 DC IV 02/14 1046 Naloxone HCl 0.4 MG ONCE ONE 02/14 1030 DC 02/14 IV 02/14 1031 1032 Omeprazole 20 MG DAILY AC 02/12 0700 AC 02/14 PO 0535 Oxycodone/ 1 TAB Q6P PRN 02/11 1745 DC 02/12 Acetaminophen PO 1200 Oxycodone/ 2 TAB Q6P PRN 02/11 1745 DC 02/14 Acetaminophen PO 0801 Patient Medication 1 ED .STK-MED ONE 02/13 1417 [facility] ED 02/13 1418 Pregabalin 50 MG BID 02/11 2200 02/13 PO 2153 Tiotropium Dodson 1 PUF DAILY 02/11 1747 AC 02/13 INH 1039 Review of Systems Review of Systems: Unable to complete ROS as altered Past History Travel History Traveled to [place] past 21 day No Medical History Blood Transfusion Hx: Yes Neurological: NONE EENT: NONE Cardiovascular: hypertension, hyperlipidemia, pacemaker Respiratory: asthma, COPD Gastrointestinal: NONE Hepatic: NONE Renal: RENAL MASS HYDRONEPHROSIS OBSTRUCTING CALUCULUS CHRONIC KIDNEY DISEASE Musculoskeletal: LOW BACK PAIN MULTIPLE FALLS OSTEOARTHRITIS Psychiatric: anxiety, MAJOR DEPRESSIVE DISORDER Endocrine: DIABETES 2 Blood Disorders: NONE Cancer(s): NONE 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 Home Services at Home: Nursing Smoking Status: Never Smoked ETOH Use: denies use Functional Ability ADLs Needs Assist: dressing, eating, toileting, bathing. Ambulation: walker IADLs Needs Assist: shopping, housework, finances, food prep, telephone, transportation, medication admin. Exam & Diagnostic Data Vital Signs and I&O Vital Signs Date Time Temp Pulse Resp B/P B/P Pulse O2 O2 Flow FiO2 Mean Ox Delivery Rate 02/14 1052 96.1 112 32 180/88 99 Non 100% ReBreather 02/14 0859 92 Nasal 2.0L Cannula 02/14 0800 99.9 79 20 96/56 93 Room Air 02/14 0055 98.9 77 22 92/60 94 Room Air 02/14 0000 94 Room Air 02/13 2154 122/60 02/13 1921 97 Room Air Room Air 02/13 1654 98.8 66 20 122/60 94 02/13 1314 Room Air Room Air Intake & Output 02/14 1600 02/14 0400 02/13 1600 02/13 0400 02/12 1600 02/12 0400 Intake Total 580 306 3126 840 1940 1750 Output Total 350 200 425 325 Balance 240 120 905 183 4434 1425 Intake, IV 776 879 0364 1150 Intake, Oral 240 120 600 240 720 600 Number 1 Bowel Movements Output, Urine 350 200 425 325 Patient 180 lb 180 lb Weight Physical Exam: Gen - ill appearing Head - NCAT Eyes - EOMI, anicteric sclera Mouth - gargling phlegm Neck - supple, JVP not clearly up CV - RRR, no m/r/g Chest - gargling upper airway sounds Abd - soft, nontender Upper ext - no edema Lower ext - no edema Skin - no rash Neuro - completely altered and not following commands Results Pertinent Lab Results: Laboratory Tests 02/14 02/14 02/13 0515 2757 9297 Chemistry Sodium (137 - 145 mmol/L) 140 Potassium (3.5 - 5.1 mmol/L) 4.7 Chloride (98 - 107 mmol/L) 107 Carbon Dioxide (22 - 30 mmol/L) 19 L Anion Gap (5 - 16) 14 BUN (7 - 17 mg/dL) 39 H Creatinine (0.5 - 1.0 mg/dL) 2.8 H Estimated GFR (>60 ml/min) 16 L BUN/Creatinine Ratio (7 - 25 %) 13.9 Lactic Acid (0.7 - 2.1 mmol/L) 3.0 H Magnesium (1.6 - 2.3 mg/dL) 1.8 Troponin I (< 0.11 ng/ml) 0.15 *H 0.12 *H Hematology CBC w Diff NO MAN DIFF REQ WBC (4.8 - 10.8 /CUMM) 19.1 H RBC (4.20 - 5.40 /CUMM) 4.24 Hgb (12.0 - 16.0 G/DL) 12.3 Hct (37 - 47 %) 37.7 MCV (81.0 - 99.0 FL) 88.9 MCH (27.0 - 31.0 PG) 29.0 RDW (11.5 - 14.5 %) 15.0 H Plt Count (130 - 400 /CUMM) 237 MPV (7.4 - 10.4 FL) 11.0 H Gran % (42.2 - 75.2 %) 89.0 H Lymphocytes % (20.5 - 51.1 %) 5.0 L Monocytes % (1.7 - 9.3 %) 5.9 Eosinophils % (0 - 5 %) 0 Basophils % (0.0 - 2.0 %) 0.1 Absolute Granulocytes (1.4 - 6.5 /CUMM) 17.0 H Absolute Lymphocytes (1.2 - 3.4 /CUMM) 0.9 L Absolute Monocytes (0.10 - 0.60 /CUMM) 1.1 H Absolute Eosinophils (0.0 - 0.7 /CUMM) 0 Absolute Basophils (0.0 - 0.2 /CUMM) 0 PUBS MCHC (33.0 - 37.0 G/DL) 32.6 L 02/13 02/13 02/13 1825 1410 1110 Chemistry Lactic Acid (0.7 - 2.1 mmol/L) 1.9 2.5 H Troponin I (< 0.11 ng/ml) 0.12 *H 02/13 02/13 0610 0300 Chemistry Sodium (137 - 145 mmol/L) 141 Potassium (3.5 - 5.1 mmol/L) 4.8 Chloride (98 - 107 mmol/L) 109 H Carbon Dioxide (22 - 30 mmol/L) 19 L Anion Gap (5 - 16) 13 BUN (7 - 17 mg/dL) 26 H Creatinine (0.5 - 1.0 mg/dL) 1.8 H Estimated GFR (>60 ml/min) 27 L BUN/Creatinine Ratio (7 - 25 %) 14.4 Magnesium (1.6 - 2.3 mg/dL) 1.7 Hematology CBC w Diff MAN DIFF ORDERED WBC (4.8 - 10.8 /CUMM) 21.0 H RBC (4.20 - 5.40 /CUMM) 4.01 L Hgb (12.0 - 16.0 G/DL) 11.8 L Hct (37 - 47 %) 35.8 L MCV (81.0 - 99.0 FL) 89.1 MCH (27.0 - 31.0 PG) 29.4 RDW (11.5 - 14.5 %) 14.6 H Plt Count (130 - 400 /CUMM) 245 MPV (7.4 - 10.4 FL) 10.6 H Gran % (42.2 - 75.2 %) 86.3 H Lymphocytes % (20.5 - 51.1 %) 5.4 L Monocytes % (1.7 - 9.3 %) 8.2 Eosinophils % (0 - 5 %) 0.1 Basophils % (0.0 - 2.0 %) 0 L Absolute Granulocytes (1.4 - 6.5 /CUMM) 18.1 H Segmented Neutrophils (42.2 - 75.2 %) 80 H Band Neutrophils (0.0 - 5.0 %) 9 H Absolute Lymphocytes (1.2 - 3.4 /CUMM) 1.1 L Lymphocytes (20.5 - 51.1 %) 4 L Monocytes (1.7 - 9.3 %) 6 Absolute Monocytes (0.10 - 0.60 /CUMM) 1.7 H Absolute Eosinophils (0.0 - 0.7 /CUMM) 0 Basophils (0.0 - 2.0 %) 1 Absolute Basophils (0.0 - 0.2 /CUMM) 0 Platelet Estimate (ADEQUATE) ADEQUATE Normocytic RBCs VERIFIED Normochromic RBCs VERIFIED PUBS MCHC (33.0 - 37.0 G/DL) 33.0 Urines Urinalysis LIGHT H Urine Color (YEL,AMB,STR) YEL Urine Clarity (CLEAR) CLDY H Urine pH (5.0 - 8.0) 6.0 Ur Specific [place] (1.001 - 1.035) 1.025 Urine Protein (NEG,<30 MG/DL) 100 H Urine Ketones (NEG) NEG Urine Nitrite (NEG) NEG Urine Bilirubin (NEG) NEG Urine Urobilinogen (0.1 - 1.0 EU/dl) 1.0 Ur Leukocyte Esterase (NEG) LARGE H Ur Microscopic SEDIMENT EXAMINED Urine RBC (0 - 5 /HPF) 1-3 Urine WBC (0 - 2 /HPF) > 75 H Ur Epithelial Cells (NONE,FEW) MOD H Urine Bacteria (NEG/NONE) PACKD H Urine Mucus (FEW,NONE) FEW Urine Hemoglobin (NEG) TRACE-INTACT Urine Glucose (N MG/DL) NEG 02/12 02/12 0630 0125 Chemistry Sodium (137 - 145 mmol/L) 140 Potassium (3.5 - 5.1 mmol/L) 3.2 L Chloride (98 - 107 mmol/L) 110 H Carbon Dioxide (22 - 30 mmol/L) 20 L Anion Gap (5 - 16) 9 BUN (7 - 17 mg/dL) 24 H Creatinine (0.5 - 1.0 mg/dL) 1.1 H Estimated GFR (>60 ml/min) 47 L BUN/Creatinine Ratio (7 - 25 %) 21.8 Troponin I (< 0.11 ng/ml) 0.05 Hematology CBC w Diff NO MAN DIFF REQ WBC (4.8 - 10.8 /CUMM) 7.5 RBC (4.20 - 5.40 /CUMM) 3.53 L Hgb (12.0 - 16.0 G/DL) 10.4 L Hct (37 - 47 %) 31.6 L MCV (81.0 - 99.0 FL) 89.5 MCH (27.0 - 31.0 PG) 29.6 RDW (11.5 - 14.5 %) 14.5 Plt Count (130 - 400 /CUMM) 203 MPV (7.4 - 10.4 FL) 9.6 Gran % (42.2 - 75.2 %) 73.4 Lymphocytes % (20.5 - 51.1 %) 14.2 L Monocytes % (1.7 - 9.3 %) 8.1 Eosinophils % (0 - 5 %) 3.9 Basophils % (0.0 - 2.0 %) 0.4 Absolute Granulocytes (1.4 - 6.5 /CUMM) 5.5 Absolute Lymphocytes (1.2 - 3.4 /CUMM) 1.1 L Absolute Monocytes (0.10 - 0.60 /CUMM) 0.6 Absolute Eosinophils (0.0 - 0.7 /CUMM) 0.3 Absolute Basophils (0.0 - 0.2 /CUMM) 0 PUBS MCHC (33.0 - 37.0 G/DL) 33.1 02/11 02/11 1510 1505 Chemistry Sodium (137 - 145 mmol/L) 141 Potassium (3.5 - 5.1 mmol/L) 4.8 Chloride (98 - 107 mmol/L) 102 Carbon Dioxide (22 - 30 mmol/L) 26 Anion Gap (5 - 16) 12 BUN (7 - 17 mg/dL) 32 H Creatinine (0.5 - 1.0 mg/dL) 1.3 H Estimated GFR (>60 ml/min) 39 L BUN/Creatinine Ratio (7 - 25 %) 24.6 Glucose (65 - 99 mg/dL) 90 Calcium (8.4 - 10.2 mg/dL) 9.8 Magnesium (1.6 - 2.3 mg/dL) 2.0 Total Bilirubin (0.2 - 1.3 mg/dL) 0.8 AST (14 - 36 U/L) 51 H ALT (9 - 52 U/L) 49 Alkaline Phosphatase (<127 U/L) 99 Troponin I (< 0.11 ng/ml) 0.03 Total Protein (6.3 - 8.2 g/dL) 7.5 Albumin (3.5 - 5.0 g/dL) 4.2 Globulin (1.9 - 4.2 gm/dL) 3.3 Albumin/Globulin Ratio (1.1 - 2.2 %) 1.3 25-OH Vitamin D Total (30 - 100 ng/ml) 38.6 Toxicology Urine Opiates Screen (>2000 NG/ML) 1162.00 Methadone Screen (>300 NG/ML) < 40 Barbiturate Screen (>200 NG/ML) < 60 Ur Phencyclidine Scrn (>25 NG/ML) < 6.00 Amphetamines Screen (>1000 NG/ML) < 100 U Benzodiazepines Scrn (>200 NG/ML) < 85 Urine Cocaine Screen (>300 NG/ML) < 50 Urine Cannabis Screen (>50 NG/ML) < 5.00 Urines Urine Color (YEL,AMB,STR) YEL Urine Clarity (CLEAR) HAZY H Urine pH (5.0 - 8.0) 7.0 Ur Specific [place] (1.001 - 1.035) 1.015 Urine Protein (NEG,<30 MG/DL) 30 H Urine Ketones (NEG) NEG Urine Nitrite (NEG) POS H Urine Bilirubin (NEG) NEG Urine Urobilinogen (0.1 - 1.0 EU/dl) 0.2 Ur Leukocyte Esterase (NEG) MOD H Ur Microscopic SEDIMENT EXAMINED Urine RBC (0 - 5 /HPF) RARE Urine WBC (0 - 2 /HPF) 5-10 H Ur Epithelial Cells (NONE,FEW) RARE Urine Bacteria (NEG/NONE) MANY H Hyaline Casts (0/LPF) RARE H Urine Hemoglobin (NEG) NEG Urine Glucose (N MG/DL) NEG 02/11 1335 Coagulation PT (9.4 - 12.5 SEC) 11.4 INR (0.90 - 1.19) 1.09 APTT (25 - 37 SEC) 32 Hematology CBC w Diff NO MAN DIFF REQ WBC (4.8 - 10.8 /CUMM) 8.6 RBC (4.20 - 5.40 /CUMM) 4.68 Hgb (12.0 - 16.0 G/DL) 13.6 Hct (37 - 47 %) 41.9 MCV (81.0 - 99.0 FL) 89.5 MCH (27.0 - 31.0 PG) 29.1 RDW (11.5 - 14.5 %) 14.7 H Plt Count (130 - 400 /CUMM) 266 MPV (7.4 - 10.4 FL) 9.4 Gran % (42.2 - 75.2 %) 66.8 Lymphocytes % (20.5 - 51.1 %) 21.7 Monocytes % (1.7 - 9.3 %) 7.7 Eosinophils % (0 - 5 %) 3.2 Basophils % (0.0 - 2.0 %) 0.6 Absolute Granulocytes (1.4 - 6.5 /CUMM) 5.7 Absolute Lymphocytes (1.2 - 3.4 /CUMM) 1.9 Absolute Monocytes (0.10 - 0.60 /CUMM) 0.7 H Absolute Eosinophils (0.0 - 0.7 /CUMM) 0.3 Absolute Basophils (0.0 - 0.2 /CUMM) 0 PUBS MCHC (33.0 - 37.0 G/DL) 32.5 L Imaging/Other Studies: Renal U/S, Chest x-ray, CT Head, CT C-spine, Nuc Med scan reviewed as above Assessment/Plan Assessment/Recommendations Assessment: CKD - Baseline Stage III CKD - some proteinuria at baseline. At least in part 2 /2 chronic L sided obstruction. Based on information from previous consultation in August, she has had a 20 year history and DM and 20 year hx of HTN and has taken NSAIDs in the past. These may all be contributing to her baseline proteinuric CKD. No reason to pursue serologic work-up at this time. HERNÁN - 2/2 ATN in the setting of relative hypotension (significant drop in blood pressure), diuresis in the absence of pulmonary edema, and urosepsis. I would recommend giving some IVF to see if there is any element of reversible pre-renal azotemia. Urosepsis - Speciation/Sensitivity pending. Recommendations: -Would fluid resuscitate with LR - can likely give at least 1L bolus while hypotensive and then start LR gtt at 100cc/hr while closely monitoring respiratory status -Can check Urine Na and creatinine -No need for diuresis at this time -Would advise against invasive procedures on L hydronephrosis at this time -f/u speciation/sensitivity of GNR's Please call [phone] with ?'s
--- NOTE | 2017-02-14 11:21 | RADIOLOGY REPORT ---
EXAMINATION: XR PORTABLE CHEST CLINICAL INFORMATION: Aspiration. Approximately. Dyspnea. Presumptive diagnoses of pneumonia, fluid overload. COMPARISON: 02/13/2017 TECHNIQUE: Portable frontal view of the chest was obtained. FINDINGS: There is kyphotic positioning of the patient with the mandible obscuring the left lung apex. Dual-lead pacemaker appears unchanged, though the termination of the right ventricular lead is not included, extending off the inferior border of the study. EKG leads overlie the chest. Cardiac and mediastinal contours are unchanged. Calcific atherosclerosis is present in the thoracic aorta. Lung volumes are low. There is elevation of the right hemidiaphragm with associated right lower lobe atelectasis. Pulmonary vasculature is unremarkable given the lung volumes. No acute pulmonary findings are identified. No focal consolidation, pneumothorax, or pleural effusion. Degenerative disc disease is present in the thoracic spine. Vertebroplasty cement is again noted in the upper thoracic spine. IMPRESSION: Low lung volumes with mild elevation of the hemidiaphragm, similar to prior. No acute pulmonary findings.
--- NOTE | 2017-02-14 11:52 | Cons- CRCU ---
VIKTOR WISE,CHRISTIE 02/14/17 1151: General Information and HPI Consulting Request Date of Consult: 02/14/17 Requested By: Dr. Francisco Reason for Consult: Respiratory depression Source of Information: family, old records Exam Limitations: clinical condition, confusion History of Present Illness: This is an 86-year-old lady whose medical issues include asthma, COPD, hypertension, chronic kidney disease, chronic lower back pain requiring multiple vertebral plasties and on opiate pain medication, presented to the emergency room initially for evaluation for syncopal episode. Patient was admitted to the cardiac telemetry floor initially and was found to be positive for orthostatic hypotension. She was subsequently given IV fluids and subsequently also diuresis. Today, the patient was noted to be in respiratory depression likely secondary to opiate pain medication subsequent she was given Narcan. She did respond to Narcan and her respiratory status did seem to improve mildly, she was subsequently transferred to the intensive care unit for further monitoring. Allergies/Medications Allergies: Coded Allergies: NO KNOWN ALLERGIES (12/24/12) Home Med List: Albuterol Sulfate 2.5 MG/3 ML (0.083 %) VIAL.NEB 1 Vial INH/TWIN Q6H PRN WHEEZING (Reported) Aspirin (Aspirin*) 81 MG TAB.CHEW 1 TAB PO DAILY PACEMAKER (Reported) Budesonide/Formoterol Fumarate (Symbicort 80-4.5 Mcg Inhaler) 80 MCG-4.5 MCG/ ACTUATION HFA.AER.AD 2 PUF INH BID BREATHING PROBLEMS (Reported) Cholecalciferol (Vitamin D3) 1,000 UNIT TABLET 1 TAB PO DAILY SUPPLEMENT ( Reported) Fenofibrate Nanocrystallized (Fenofibrate) 145 MG TABLET 1 TAB PO DAILY cholesterol (Reported) Fluoxetine HCl 20 MG CAPSULE 1 CAP PO DAILY MENTAL HEALTH (Reported) Hydralazine HCl 100 MG TABLET 1 TAB PO BID HTN (Reported) Hydrochlorothiazide 50 MG TABLET 1 TAB PO DAILY HTN (Reported) Hydromorphone HCl (Dilaudid) 2 MG TABLET 1 TAB PO Q4H PRN PAIN (Reported) Hydroxyzine HCl 25 MG TABLET 1 TAB PO TID PRN ITCHING (Reported) Lidocaine (Lidoderm) 5 % ADH..PATCH 1 PAT TOP DAILY PAIN (Reported) may wear up to 12 hours Lorazepam 1 MG TABLET 1 TAB PO BID PRN ANXIETY (Reported) Lovastatin 40 MG TABLET 1 TAB PO DAILY CHOLESTEROL (Reported) with food Multivitamin (Multi-Day Vitamins) 1 EACH TABLET 1 TAB PO DAILY SUPPLEMENT ( Reported) Omeprazole 20 MG TABLET. 1 TAB PO DAILY GI (Reported) Pregabalin (Lyrica) 50 MG CAPSULE 1 CAP PO BID PAIN (Reported) Tiotropium [place] (Spiriva) 18 MCG CAP.W.DEV 1 CAP INH DAILY RESPIRATORY ( Reported) Review of Systems Review of Systems Constitutional: Reports: see HPI. Past History Travel History Traveled to [place] past 21 day No Medical History Blood Transfusion Hx: Yes Neurological: NONE EENT: NONE Cardiovascular: hypertension, hyperlipidemia, pacemaker Respiratory: asthma, COPD Gastrointestinal: NONE Hepatic: NONE Renal: RENAL MASS HYDRONEPHROSIS OBSTRUCTING CALUCULUS CHRONIC KIDNEY DISEASE Musculoskeletal: LOW BACK PAIN MULTIPLE FALLS OSTEOARTHRITIS Psychiatric: anxiety, MAJOR DEPRESSIVE DISORDER Endocrine: DIABETES 2 Blood Disorders: NONE Cancer(s): NONE TALK SHOW HOST/Reproductive: NONE Surgical History Surgical History: spinal fusion Family History Relations & Conditions If Any: Relation not specified for: *No pertinent family history Psychosocial History Where Do You Live? Home Services at Home: Nursing Smoking Status: Never Smoked ETOH Use: denies use Functional Ability ADLs Needs Assist: dressing, eating, toileting, bathing. Ambulation: walker IADLs Needs Assist: shopping, housework, finances, food prep, telephone, transportation, medication admin. Exam & Diagnostic Data Last 24 Hrs of Vital Signs/I&O Vital Signs Date Time Temp Pulse Resp B/P B/P Pulse O2 O2 Flow FiO2 Mean Ox Delivery Rate 02/14 1052 96.1 112 32 180/88 99 Non 100% ReBreather 02/14 0859 92 Nasal 2.0L Cannula 02/14 0800 90 Nasal Room Air Cannula 02/14 0800 99.9 79 20 96/56 93 Room Air 02/14 0055 98.9 77 22 92/60 94 Room Air 02/14 0000 94 Room Air 02/13 2154 122/60 02/13 1921 97 Room Air Room Air 02/13 1654 98.8 66 20 122/60 94 02/13 1314 Room Air Room Air Intake & Output 02/14 1600 02/14 0800 02/14 0000 Intake Total 240 120 Output Total Balance 240 120 Intake, Oral 240 120 Physical Exam General Appearance: awake, lethargic, moderate distress Head: atraumatic Respiratory: chest non-tender Cardiovascular: regular rate/rhythm Gastrointestinal: normal bowel sounds, soft, non-tender Extremities: normal inspection, normal capillary refill Last 48 Hrs of Labs/Tylor: Laboratory Tests 02/14/17 0515: Troponin I 0.15 *H 02/14/17 0515: Anion Gap 14, Estimated GFR 16 L, BUN/Creatinine Ratio 13.9, Magnesium 1.8, CBC w Diff NO MAN DIFF REQ, RBC 4.24, MCV 88.9, MCH 29.0, RDW 15.0 H, MPV 11.0 H, Gran % 89.0 H, Lymphocytes % 5.0 L, Monocytes % 5.9, Eosinophils % 0, Basophils % 0.1, Absolute Granulocytes 17.0 H, Absolute Lymphocytes 0.9 L, Absolute Monocytes 1.1 H, Absolute Eosinophils 0, Absolute Basophils 0, PUBS MCHC 32.6 L 02/13/17 2327: Lactic Acid 3.0 H, Troponin I 0.12 *H 02/13/17 1825: Troponin I 0.12 *H 02/13/17 1410: Lactic Acid 1.9 02/13/17 1110: Lactic Acid 2.5 H 02/13/17 0610: Anion Gap 13, Estimated GFR 27 L, BUN/Creatinine Ratio 14.4, Magnesium 1.7, CBC w Diff MAN DIFF ORDERED, RBC 4.01 L, MCV 89.1, MCH 29.4, RDW 14.6 H, MPV 10.6 H, Gran % 86.3 H, Lymphocytes % 5.4 L, Monocytes % 8.2, Eosinophils % 0.1, Basophils % 0 L, Absolute Granulocytes 18.1 H, Segmented Neutrophils 80 H, Band Neutrophils 9 H, Absolute Lymphocytes 1.1 L, Lymphocytes 4 L, Monocytes 6, Absolute Monocytes 1.7 H, Absolute Eosinophils 0, Basophils 1, Absolute Basophils 0, Platelet Estimate ADEQUATE, Normocytic RBCs VERIFIED, Normochromic RBCs VERIFIED, PUBS MCHC 33.0 02/13/17 0300: Urinalysis LIGHT H, Urine Color YEL, Urine Clarity CLDY H, Urine pH 6.0, Ur Specific [place] 1.025, Urine Protein 100 H, Urine Ketones NEG, Urine Nitrite NEG, Urine Bilirubin NEG, Urine Urobilinogen 1.0, Ur Leukocyte Esterase LARGE H , Ur Microscopic SEDIMENT EXAMINED, Urine RBC 1-3, Urine WBC > 75 H, Ur Epithelial Cells MOD H, Urine Bacteria PACKD H, Urine Mucus FEW, Urine Hemoglobin TRACE-INTACT, Urine Glucose NEG Diagnostic Data CXR Results PATIENT: TIFFANY BRANCH PRESENT AGE: 86 PATIENT ACCOUNT NO: [id number] : 30 LOCATION: [facility] ORDERING PHYSICIAN: FLORA ADAMS MD SERVICE DATE: 02/14/17 EXAM TYPE: RAD - XRY-PORTABLE CHEST XRAY EXAMINATION: XR PORTABLE CHEST CLINICAL INFORMATION: Aspiration. Approximately. Dyspnea. Presumptive diagnoses of pneumonia, fluid overload. COMPARISON: 02/13/2017 TECHNIQUE: Portable frontal view of the chest was obtained. FINDINGS: There is kyphotic positioning of the patient with the mandible obscuring the left lung apex. Dual-lead pacemaker appears unchanged, though the termination of the right ventricular lead is not included, extending off the inferior border of the study. EKG leads overlie the chest. Cardiac and mediastinal contours are unchanged. Calcific atherosclerosis is present in the thoracic aorta. Lung volumes are low. There is elevation of the right hemidiaphragm with associated right lower lobe atelectasis. Pulmonary vasculature is unremarkable given the lung volumes. No acute pulmonary findings are identified. No focal consolidation, pneumothorax, or pleural effusion. Degenerative disc disease is present in the thoracic spine. Vertebroplasty cement is again noted in the upper thoracic spine. IMPRESSION: Low lung volumes with mild elevation of the hemidiaphragm, similar to prior. No acute pulmonary findings. DICTATED BY: DELMY TEMPLE MD DATE/TIME DICTATED:02/14/171114 INTERNAL SALES ENGINEER:OLEKSANDR DATE/TIME TRANSCRIBED:02/14/171114 CONFIDENTIAL, DO NOT COPY WITHOUT APPROPRIATE AUTHORIZATION. <Electronically signed in Other Vendor System> SIGNED BY: DELMY TEMPLE MD 02/14/17 1121 Assessment/Plan Impression/Plan: Assessment- 1. Hypoxic respiratory failure 2. Possible aspiration pneumonia likely secondary to respiratory depression from opioid pain medication 3. Acute kidney injury 4. Lactic acidosis 5. Positive troponins, likely secondary to demand ischemia or HERNÁN 6. Chronic back pain, status post multiple level vertebral augmentation 7. Bradycardia status post pacemaker placement Plan- A family meeting was held with patient's daughter Kimberly, son and daughter-in- law. All questions were answers and concerns were addressed. The family stated that yesterday Ms. Branch voiced to them that if she were to clinically deteriorate, she does not want any aggressive measures pursued and would like to be made comfortable with no intention of intubation, mechanical ventilation, CPR , central line, pressors, antibiotics, IV fluids or any other invasive/ acceleration of care. She wanted to be placed in hospice if she were to further deteriorate. Hospice consult has been placed which is consistent with the patient's wishes, she is pending hospice admission. Consult Acknowledgment - Thank you for your consult request. Nimisha CISNEROS MD 02/14/17 1231: Assessment/Plan Other Findings/Comments: I have personally seen and examined the patient, and agree with the resident's assessment and plan as detailed above. Briefly, the patient is an 86-year-old female with a past medical history significant for obstructive lung disease, hypertension, hyperlipidemia, bradycardia status post pacemaker placement, chronic kidney disease, and severe chronic lower back pain requiring vertebroplasty in the past. The patient was admitted following an unwitnessed fall. During the patient's hospital course she has had several issues including uncontrolled asked pain requiring escalating doses of opiates. Today, the patient was noted to be minimally responsive and acutely hypoxemic requiring 100 % nonrebreather. The patient was suctioned, noting copious retained secretions were in the patient's airway. She was transferred to the critical care unit where she was in severe respiratory distress requiring again 100% nonrebreather to maintain her saturations. The patient was also in severe pain as she received Narcan during the event. I discussed the patient's overall goals of care with her family in detail. As per the patient's daughter, last evening the patient stated she wanted no further aggressive measures and she is considering hospice. After today's events, the patient's family feels the patient should be made comfort measures which is consistent with her wishes. We will place a hospice consult. We will restart the patient on opiates for respiratory distress and for comfort. She will receive when necessary Ativan for agitation as well. All patient's family members at the bedside were in agreement with the plan. I have discussed this with housestaff in detail. Consult Acknowledgment - Thank you for your consult request.
--- NOTE | 2017-02-14 15:16 | Discharge Summary ---
Visit Information Visit Dates Admission Date: 02/13/17 Discharge Date: 02/14/17 Hospital Course Course Attending Physician: ANIKA FRANCISCO MD Primary Care Physician: TYREL HARRIS APRN Consulting Request: Consulting Specialty: Cardiology Consulting Physician: Dr. Mumtaz Esposito [facility] Course: Ms. Branch is 86 year old female with a PMH significant for DM, asthma, COPD not on home oxygen, HTN, HLD, bradycardia s/p pacemaker palcement, CKD, chronic lower back pain, chronic left hydronephrosis, and osteoarthritis, who presented to ED after a syncopal episode. On 02/14/17 at appx 8:30AM patient was witnessed to be tremulous in all extremities for about 20 seconds. Patient was seen and examined by the team at which point the tremors resolved but she was diaphoretic and in severe distress due to the back pain. O2 sat dropping to 80s with tachypnea. Patient awake and alert but disoriented. She received 0.6mg of IV Dilaudid with relief in pain. Patient was placed on oxygen supplement. Discussed with the attending physician Dr. Francisco for possible seizure. No need for EEG for now. Will watch closely. At 10:30AM, patient continued to be larthargic with decreased responses to questions. Oxygen saturation remained in high 80s on 2 liters of oxygen. Pt continued to be tachypenic. Vitals otherwise remarkable for tachycardia at 112. RT called for TRC tx and airway suction. Significant rales and stridors on lung exam. She was given narcan 0.4mg IV and Solumedrol 20mg IV. CXR and ABG ordered stat. Per Dr. Mendoza's assessment patient was transferred to ICU for possible intubation. Patient's family was updated about patient's state. Upon arrival to the hospital, family members (niece and daughter) decided that it would be of the patient's best interest to change the patient's code status to hospice. Per family, patient stated her wish to be pursue comfort care if her condition deteriorates. The following problems were managed with the plans discussed below while in telemetery unit: # Syncope 2/2 orthostatic hypotension Most likely due to dehydration as orthostatic BP was positive on admission and her home med HCTZ was recently increased to 50mg daily. Cardiology was consulted and recommened holding diuretics. She was kept on home med hydralazine 100mg PO BID. Pacemaker interrogation was unremarkable. # Severe sepsis most likely 2/2 UTI Patient spiked a fever of 102 during the night of 02/12. WBC and lactic acid elevated at 21 and 2.7 respectively the following day. UA suspiscious for UTI. CXR shows no acute cardiopulmonary findings. Patient was started on IV ceftriaxone. Pancultures sent. GNR growing in Bcx x 2 and urine cx. # Possible CHF exacerbation On hospitaly day 2, patient complained of severe dyspnea. Crackles appreciated on lung exam. Most likely 2/2 CHF exacerbation as diruetics have been held. We discontinued IVF and gave her one time IV Lasix 40mg. CXR done afterwards didn't show any acute cardiopulmonary findings. # Acute on CKD. Patient's creatinine bumping up from 1.1 -> 1.7 -> 2.8. Most likely 2/2 cardiorenal syndrome vs. intravascular volume depletion. There may also be a component of her history of hydroneprhosis. Repeat CXR to be followed. Nephrology was consulted. Avoid nephrotoxins including Lasix and hold IVF in the meantime. # New compression fractures of the T1 and T6 Acute on chronic back pain most likely 2/2 new compression fractures of the T1 and T6 vertebral bodies as noted on CT. Previously MRI from early January showed T5 compression fracture with marrow edema, and multi level lumbar degenerative diseage with bulging of discs. Patient is s/p vertebral augmentation (01/22). She takes Dilaudid at home for pain control. Manage her pain for now. Referral for for possible vertebroplasty outpatient. # Elevated troponins Patient complained of substernal chest pain only induced with palpation. Trops slightly elevated with EKG showing mild ST depression. Thrid set pending this moring. #History of junctional bradycardia, s/p pacemaker placement S/p pacemaker placement in early January 2017. Currently in sinus rhythm. Interrogation of pacemaker was unremarkable. No significant abnoralities on monitoring analyst. #HTN/HLD Her systolic blood pressure on lying down was 179 and dropped down to 102 on standing up. We held diuretics (per pateint HCTZ was recently increaed to 50mg QD). She was kept on home meds hydralazine 100mg BID and fenofibrate (for lyperlipidemia). Cardiology following. #Diabetes mellitus Patient was kept on NovoLog SSI with accuchecks. #Asthma and COPD on inhalers She was kept on TRC and home inhalers. - Diet heart healthy - Moderate pain pathway - DVT prophylaxis - ALPs - Code full Allergies: Coded Allergies: NO KNOWN ALLERGIES (12/24/12) Disposition Summary Disposition Principal Diagnosis: Severe sepsis 2/2 UTI and bacteremia Syncope Additional Diagnosis: Acute on chronic kidney disease CHF exacerbation Discharge Disposition: hospice - medical facilit Discharge Instructions General Discharge Information Code Status: Hospice Patient's Diet: Heart healthy Patient's Activity: N/A Follow-Up Instructions/Appts: N/A Medications at Discharge Discharge Medications: Stop taking the following medications: Hydrochlorothiazide (Hydrochlorothiazide) 50 MG TABLET ORAL DAILY Continue taking these medications: Budesonide/Formoterol Fumarate (Symbicort 80-4.5 Mcg Inhaler) 80 MCG-4.5 MCG/ ACTUATION HFA.AER.AD 2 Puff Inhale through mouth TWICE DAILY Qty = 30 Fluoxetine HCl (Fluoxetine HCl) 20 MG CAPSULE 1 Capsule ORAL DAILY Qty = 90 Lovastatin (Lovastatin) 40 MG TABLET 1 Tablet ORAL DAILY Qty = 90 Instructions: with food Fenofibrate Nanocrystallized (Fenofibrate) 145 MG TABLET 1 Tablet ORAL DAILY Aspirin (Aspirin*) 81 MG TAB.CHEW 1 Tablet ORAL DAILY Albuterol Sulfate (Albuterol Sulfate) 2.5 MG/3 ML (0.083 %) VIAL.NEB 1 Vial Inhale Solution Q6H as needed for WHEEZING Hydromorphone HCl (Dilaudid) 2 MG TABLET 1 Tablet ORAL Q4H as needed for PAIN Hydroxyzine HCl (Hydroxyzine HCl) 25 MG TABLET 1 Tablet ORAL THREE TIMES DAILY as needed for ITCHING Lidocaine (Lidoderm) 5 % ADH..PATCH 1 Patch On the skin DAILY Instructions: may wear up to 12 hours Lorazepam (Lorazepam) 1 MG TABLET 1 Tablet ORAL TWICE DAILY as needed for ANXIETY Multivitamin (Multi-Day Vitamins) 1 EACH TABLET 1 Tablet ORAL DAILY Omeprazole (Omeprazole) 20 MG TABLET.DR 1 Tablet ORAL DAILY Pregabalin (Lyrica) 50 MG CAPSULE 1 Capsule ORAL TWICE DAILY Tiotropium [place] (Spiriva) 18 MCG CAP.W.DEV 1 Capsule Inhale through mouth DAILY Cholecalciferol (Vitamin D3) 1,000 UNIT TABLET 1 Tablet ORAL DAILY Hydralazine HCl (Hydralazine HCl) 100 MG TABLET 1 Tablet ORAL TWICE DAILY Copies To: SIDNEY WISE PhD,MUMTAZ Olivo Attending MD Review Statement Documenting Attending: ANIKA FRANCISCO MD Other Findings: The patient was seen and discussed with house staff. Will transfer to Hospice service care.
== END 2017-02-14 14:10 | disposition hospice, home (50) | DRG 551 ==
LOC: ERH 13:12 → ERHI 16:26 → 1NO 16:26 → ENRESERV 17:18 → ENTRNSPT 18:46 → EDTRNSPTTYP 19:01 → 1NO 19:05 → CMPTRNSPT 19:22 → 1NO 02-12 09:04 → CRI 02-14 11:25
PROVIDERS: Internal Medicine; Physician Assistant Medical; ADMIT Internal Medicine
PROC: 4B02XSZ Measurement of Cardiac Pacemaker, External Approach (ICD-10-PCS; principal; 2017-02-12)
DX: S22.019A Unspecified fracture of first thoracic vertebra, initial encounter for closed fracture (principal); A41.50 Gram-negative sepsis, unspecified; J96.91 Respiratory failure, unspecified with hypoxia; I50.9 Heart failure, unspecified; R65.20 Severe sepsis without septic shock; J69.0 Pneumonitis due to inhalation of food and vomit; N17.9 Acute kidney failure, unspecified; N13.30 Unspecified hydronephrosis; N39.0 Urinary tract infection, site not specified; I13.0 Hypertensive heart and chronic kidney disease with heart failure and stage 1 through stage 4 chronic kidney disease, or unspecified chronic kidney disease; E87.2 Acidosis; J44.9 Chronic obstructive pulmonary disease, unspecified; S22.059A Unspecified fracture of T5-T6 vertebra, initial encounter for closed fracture; I12.9 Hypertensive chronic kidney disease with stage 1 through stage 4 chronic kidney disease, or unspecified chronic kidney disease; N18.9 Chronic kidney disease, unspecified; J45.909 Unspecified asthma, uncomplicated; E78.5 Hyperlipidemia, unspecified; Z95.0 Presence of cardiac pacemaker; W18.30XA Fall on same level, unspecified, initial encounter; Z91.81 History of falling; Y92.009 Unspecified place in unspecified non-institutional (private) residence as the place of occurrence of the external cause
CPT/HCPCS: 1NP; 36415; 74000; 76775; 80307; 81001; 82436; 87040; 87070; 87086; 93005; 93010; 94799; 96374; 96375; 97110-GP; 97116-GP; 97161-GP; 97530-GO; J0131; J0360; J0696; J1170; J1644; J1940; J2270; J2310; J2920; J3490; J7120

== ENCOUNTER 2017-02-14 14:07 | Inpatient (IN) | payer OTHER ==
[~2017-02-14] VITALS: Ht 152.4 cm; Wt 61.2 kg
--- NOTE | 2017-02-14 10:00 | NUR ---
PATIENT NOTED TO HAVING DIFFICULTY BREATHING. LUNGS AUSCULTATED WITH RHONCHI AND WHEEZING HEARD THROUGHOUT. 87% ON 2L VIA NASAL CANULA. O2 INCREASED TO 4L. PATIENT SUCTIONED WITH BROWN MUCOUS ASPIRATED. RESPIRATORY CALLED AND AT BEDSIDE. DR ADAMS AWARE AND ALSO AT PATIENT'S BEDSIDE. PATIENT SUCTIONED BY RESPIRATORY. 100% NON REBREATHER MASK APPLIED. PATIENT ALSO GIVEN 0.4MG OF NORCAN. PATIENT WAS PREVIOUSLY MEDICATED WITH IV DILAUDID FOR PAIN OF 10/10 TO LOWER BACK. SEE MAR. FAMILY AWARE. PATIENT FURTHER EVALUATED BY DR CARRANZA AND DECISION WAS MADE TO TRANSFER PATIENT TO ICU FOR HIGHER LEVEL OF CARE.
[~2017-02-14 14:07] MED LIST changes: +HYDRALAZINE HC100 M1 PO; +VITAMIN D31000 UNI2 PO
--- NOTE | 2017-02-14 16:25 | History & Physical ---
DUARTE GIBSONELEANOR 02/14/17 1608: General Information and HPI Chief Complaint: admit to hospice Source of Information: old records Exam Limitations: unable to give history, not alert/orientated Associated Symptoms: labored respirations, back pain History of Present Illness: The patient is an 86-year-old female with a past medical history significant for obstructive lung disease, hypertension, hyperlipidemia, bradycardia status post pacemaker placement, chronic kidney disease, and severe chronic lower back pain requiring vertebroplasty in the past. The patient was admitted following an unwitnessed fall. She had a pacemaker placed. During the patient's hospital course she has had several issues including uncontrolled back pain requiring escalating doses of opiates. Today, the patient was noted to be minimally responsive and acutely hypoxemic requiring 100% nonrebreather. The patient was suctioned, noting copious retained secretions were in the patient's airway. She was transferred to the critical care unit where she was in severe respiratory distress requiring again 100% nonrebreather to maintain her saturations. The patient was also in severe pain as she received Narcan during the event. As per the patient's daughter, last evening the patient stated she wanted no further aggressive measures and she is considering hospice. After today's events, the patient's family feels the patient should be made comfort measures which is consistent with her wishes, and requested hospice consultation. 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 Functional Ability: assist with ADLs/IADLs Review of Systems Review of Systems Constitutional: Reports: see HPI. Exam & Diagnostic Data Last 24 Hrs of Vital Signs/I&O Vital Signs Date Time Temp Pulse Resp B/P B/P Pulse O2 O2 Flow FiO2 Mean Ox Delivery Rate 02/14 1600 Nasal 3.0L Cannula T-96.1, HR-112, RR-32, BP-180/88 Physical Exam General Appearance Moderate Distress, sedated Skin ecchymosis to back of head HEENT Mucous Membr. moist/pink Cardiovascular tachycardic, PPM noted left upper chest wall Lungs decreased breath sounds, scattered rhonchi, labored abdominal respirations , RR-10 Abdomen Normal Bowel Sounds, Soft, No Tenderness Neurological sedated Extremities No Clubbing, No Cyanosis, No Edema Last 24 Hrs of Labs/Tylor: WBC 19.1, lactic acid 3.0, Bun 39, Cr 2.8 Troponin 0.12 and 0.15 Assessment/Plan Assessment: 86 y.o. female with history of COPD now with acute hypoxic respiratory failure, gram negative sepsis and kidney failure admitted for hospice care. Plan: Schedule morphine 2mg IV every 6 hours and also Q2hrs as needed for pain/dyspnea Ativan scheduled 1mg IV every 8 hours and also Q4hrs as needed for anxiety/ restlessness. Scopolamine patch for congestion and as needed Robinul. oxygen 3lnp.
[2017-02-14 17:31] VITALS: BP 114/70
--- NOTE | 2017-02-14 20:13 | NUR ---
17:25- PT ARRIVED TO FLOOR VIA BED FROM ICU. REPORT RECEIVED FROM HASMUKH GARY. PT ON 3L NC. AUDIBLE SECRETIONS NOTED. SECRETIONS NOTED TO MOUTH AND MOUTH SUCTIONED. SCOP PATCH TO L EAR. PT INCONTINENT, NO FERGUSON IN PLACE AT THIS TIME. PT RESPONSIVE TO VOICE AND TOUCH. BED ALARM PLACED. FAMILY AT BEDSIDE.
[2017-02-15 06:59] VITALS: BP 101/64
--- NOTE | 2017-02-15 11:13 | NUR ---
1000- PT MINIMALLY RESPONSIVE. OPENED EYES WHEN GIVEN COMPLETE BED BATH. RHONCHOUS WITH ORAL SECRETIONS NOTED. RR 10 AND LABORED. FAMILY AT BEDSIDE. NO S/SX PAIN OR AGITATION.
--- NOTE | 2017-02-15 15:45 | PN- Hospice ---
Subjective Subjective: Daughter at bedside. Pt more comfortable today but sedated. She has copious brown oral secretions overnight per nursing. On scheduled ativan and morphine; utilized 1 dose of as needed morphine and ativan in addition to scheduled doses. Objective Last 24 Hrs of Vital Signs/I&O Vital Signs Date Time Temp Pulse Resp B/P B/P Pulse O2 O2 Flow FiO2 Mean Ox Delivery Rate 02/15 0800 Nasal 3.0L Cannula 02/15 0659 96.9 83 16 101/64 96 Nasal Cannula 02/15 0000 Nasal 3.0L Cannula 02/14 1731 98.1 87 16 114/70 96 Nasal Cannula 02/14 1725 Nasal 3.0L Cannula 02/14 1600 Nasal 3.0L Cannula Intake & Output 02/15 1600 02/15 0800 02/15 0000 Intake Total 50 0 Output Total Balance 50 0 Intake, IV 50 Intake, Oral 0 Patient 135 lb Weight Physical Exam General Appearance: no apparent distress, sedated Respiratory: rhonchi, O2 3lnp Cardiovascular: regular rate/rhythm Extremities: no mottling noted Current Medications: Current Medications Sig/Tricia Start time Last Medication Dose Route Stop Time Status Admin Acetaminophen 650 MG Q4P PRN 02/14 1445 AC GA Artificial Tears 2 GTT Q2P PRN 02/14 1445 AC OU Bisacodyl 10 MG DAILY NEEDED PRN 02/14 1445 AC GA Glycerin/Mineral Oil 1 ANGELO Q8P PRN 02/14 1445 AC TOP Glycopyrrolate 400 MCG Q4P PRN 02/15 1400 AC IV Glycopyrrolate 400 MCG Q4 02/15 1400 AC 02/15 IV 1407 Glycopyrrolate 200 MCG Q4 02/15 0200 DC 02/15 IV 0935 Glycopyrrolate 400 MCG Q4P PRN 02/14 1445 DC 02/14 SC 2036 Lorazepam 1 MG Q8 02/14 2200 AC 02/15 IV 1407 Lorazepam 1 MG Q4P PRN 02/14 1445 AC 02/14 IV 2215 Morphine Sulfate 2 MG Q6 / 1800 AC 02/15 IV 1149 Morphine Sulfate 2 MG Q2P PRN 02/14 1445 AC 02/14 IV 2036 Scopolamine HBr 1 PAT Q72 /04 1000 DC TOP Scopolamine HBr 3 PAT Q72 02/15 1400 AC TOP Assessment/Plan Assessment/Recommendations: 86 y.o. female with history of COPD now with acute hypoxic respiratory failure, gram negative sepsis and kidney failure admitted for hospice care. Has increased congestion--increase scopolamine to 3 patches, increase scheduled Robinul to 400mcg every 4 hrs and continue it every 4 hours william necessary, in addition. Support given to daughter.
--- NOTE | 2017-02-15 20:34 | NUR ---
NURSING NOTE: PT RESTING COMFORTABLY. MINIMALLY RESPONSIVE. FAMILY AT BEDSIDE. RR @ 14 WITH PERIODS OF APNEA. AUDIBLE SECRETIONS. 3 SCOPE PATCHES NOTED BEHIND L EAR. SUCTION EQUIPMENT SET UP. PT REPOSITION. CHECKED FOR INCONTINENCE - DRY. MOUTH CARE PROVIDED. WILL CONTINUE TO MONITOR.
--- NOTE | 2017-02-15 23:37 | NUR ---
NURSING NOTE: PT CONTINUES TO REST COMFORTABLY. NO FAMILY AT BEDSIDE. RR @ 12, WITH PERIODS OF APNEA. NO RESPIRATORY DISTRESS. NO AUDIBLE SECRETIONS. SCHEDULE MEDICATION ADMINISTERED. PT REPOSITIONED. RN WILL CONTINUE TO MONITOR.
[2017-02-16 06:27] VITALS: BP 110/56
--- NOTE | 2017-02-16 08:00 | NUR ---
PT HAVING INCREASED CONGESTION, RUBINOL GIVEN, PT REPOSITIONED ON SIDE, CONTINUE TO MONITOR
--- NOTE | 2017-02-16 12:00 | NUR ---
PT HAVING LABORED BREATHING, MORPHINE GIVEN ORDERED, FAMILY AT BEDSIDE, PLAN OF CARE REVIEWED
--- NOTE | 2017-02-16 17:35 | PN- Att Addend ---
Attending Addendum Attending Brief Note Vital Signs Date Time Temp Pulse Resp B/P B/P Pulse O2 O2 Flow FiO2 Mean Ox Delivery Rate 02/17 800 97.7 02/16 08 Nasal 3.0L Cannula 02/16 627 100.4 64 12 110/56 92 Nasal 3.0L Cannula 02/15 2338 Nasal 3.0L Cannula The patient currently under hospice care. Patient today appears comfortable and is in no respiratory distress. Her secretions are better controlled today. Patient currently is sedated and appears in no pain. Increased secretions- currently on Robinul and scopolamine patch. They seem to be controlling her secretions. We will continue with that for now. In case her secretions worsen we'll give her a trial of Lasix. Pain control-currently on morphine which is controlling her pain and patient appears comfortable. anxiety- continue on Ativan when necessary.
--- NOTE | 2017-02-17 00:19 | NUR ---
NURSING NOTE: PT UNRESPONSIVE. APPEARS TO BE RESTING COMFORTABLY. RR @ 12, WITH PERIODS OF APNEA. AUDIBLE SECRETIONS NOTED. PT SUCTIONED - BROWN THICK COPIOUS SECRETIONS. 3 SCOPE PATCHES BEHIND L EAR. INCONTINENCE PAD IN PLACE. MOUTH CARE PROVIDED. NO FAMILY AT BEDSIDE. RN WILL CONTINUE TO MONITOR.
--- NOTE | 2017-02-17 02:49 | NUR ---
NURSING NOTE: PT SPIKED AXILLARY TEMP 102.1 - RECTAL TYLENOL ADMINISTERED. RN WILL CONTINUE TO MONITOR
[2017-02-17 07:01] VITALS: BP 126/60
--- NOTE | 2017-02-17 15:17 | PN- Att Addend ---
Attending Addendum Attending Brief Note Subjective- Unable to obtain as pt is not alert and oriented and is sedated Objective- Pt appears in no respiratory distress but on exam has bilateral upper airway sounds secondary to secretions and appears to have some crackles also. Vital Signs Date Time Temp Pulse Resp B/P B/P Pulse O2 O2 Flow FiO2 Mean Ox Delivery Rate 02/17 0800 Nasal 3.0L Cannula 02/17 0701 101.0 68 16 126/60 96 Nasal 2.0L Cannula 02/17 0340 102.0 02/17 0243 102.1 02/17 0000 Nasal 3.0L Cannula 02/16 1600 Nasal 3.0L Cannula Increased secretions- currently on Robinul and scopolamine patch. We will continue with that for now. We will also give one dose of IV lasix 20mg today Pain control-currently on morphine which is controlling her pain and patient appears comfortable. anxiety- continue on Ativan when necessary.
[2017-02-18 06:49] VITALS: BP 110/60
--- NOTE | 2017-02-18 08:00 | NUR ---
PT CONGESTED, RUBINOL GIVEN ORDERED, FAMILY AT BEDSIDE, PLAN OF CARE REVIEWED WITH FAMILY
--- NOTE | 2017-02-18 12:00 | NUR ---
SCHEDULED DOSE OF MORPHINE GIVEN ORDERED, PT REPOSITIONED ON SIDE, FAMILY AT BEDSIDE
--- NOTE | 2017-02-18 13:05 | NUR ---
1305: PT WITHOUT RESPIRATIONS, NO PULSE, PT PRONOUNCED , SEE HOSPICE PRONOUNCEMENT FORM, FAMILY AT BEDSIDE, EMOTIONAL SUPPORT GIVEN, PASTORAL CARE NOTIFIED TO COME SEE FAMILY, DR BRAR, [facility] AND [facility] SUPERVISIOR NOTIFIED
--- NOTE | 2017-02-18 13:30 | NUR ---
[facility] DECLINES PATIENT
--- NOTE | 2017-02-18 14:40 | NUR ---
SWAT TEAM MEMBER AT BEDSIDE TO GIVE FINAL BLESSING.
--- NOTE | 2017-02-19 10:31 | Discharge Summary ---
See Addendum Visit Information Visit Dates Admission Date: 02/14/17 Discharge Date: 02/18/17 Hospital Course Course Attending Physician: ANIKA CARRANZA MD Primary Care Physician: TYREL HARRIS APRN Hospital Course: 86 y.o. female with history of COPD now with acute hypoxic respiratory failure, gram negative sepsis and kidney failure, admitted for hospice care. Pt. was kept comfortable with morphine for dyspnea, ativan for anxiety and scopolamine and robinul for secretions, until she peacefully 02/18/17. Allergies: Coded Allergies: NO KNOWN ALLERGIES (12/24/12) Disposition Summary Disposition Principal Diagnosis: Acute hypoxemic respiratory failure Gram negative sepsis Kidney failure Additional Diagnosis: Chronic obstructive pulmonary disease Discharge Disposition: Discharge Instructions General Discharge Information Code Status: Hospice Patient's Diet: N/A Patient's Activity: N/A Follow-Up Instructions/Appts: N/A Copies To: TYREL HARRIS APRN
== END 2017-02-18 13:05 | disposition expired | DRG 189 ==
LOC: CRI 14:07 → 2NA 14:07
PROVIDERS: ADMIT Internal Medicine
DX: J96.01 Acute respiratory failure with hypoxia (principal); A41.50 Gram-negative sepsis, unspecified; E11.22 Type 2 diabetes mellitus with diabetic chronic kidney disease; I12.9 Hypertensive chronic kidney disease with stage 1 through stage 4 chronic kidney disease, or unspecified chronic kidney disease; N18.9 Chronic kidney disease, unspecified; F32.9 Major depressive disorder, single episode, unspecified; Z51.5 Encounter for palliative care
CPT/HCPCS: J1940